=== PATIENT | female | born 1990 | race Caucasian/White ===

== ENCOUNTER → 2017-08-27 | Outpatient (CLI) | payer OTHER ==
[2017-08-27 13:39] LABS: ABSOLUTE EOSINOPHILS # (AUTO) 0.1 10^3/uL (0.0-0.6); ABSOLUTE MONOCYTES (AUTO) 0.6 10^3/uL (0.1-1.4); ABSOLUTE NEUT (AUTO) 4.3 10^3/uL (1.7-8.2); BASOPHILS % (AUTO) 0.5 % (0-2); EOSINOPHILS % (AUTO) 1.6 % (0-6); HEMOGLOBIN 9.4 g/dL (12.0-15.5); LYMPHOCYTES % (AUTO) 28.3 % (13-45); MEAN CORPUSCULAR HEMOGLOBIN 20.8 pg (27.0-33.4); MEAN CORPUSCULAR HGB CONC 31.4 g/dL (32.0-36.0); MEAN CORPUSCULAR VOLUME 66 fl (80-97); MONOCYTES % (AUTO) 9.1 % (3-13); PLATELET COUNT 466 10^3/uL (150-450); RED BLOOD COUNT 4.54 10^6/uL (3.72-5.28); RED CELL DISTRIBUTION WIDTH 18.4 % (11.5-14.0); SEGMENTED NEUTROPHILS % (AUTO) 60.5 % (42-78); TOTAL CELLS COUNTED % (AUTO) 100 %
[2017-08-27 13:44] LABS: INTERNATIONAL RATION (INR) 1.01; PROTHROMBIN TIME 13.8 SEC (11.4-15.4)
[2017-08-27 14:03] LABS: ALANINE AMINOTRANSFERASE 76 U/L (9-52); ALBUMIN 4.4 g/dL (3.5-5.0); ALKALINE PHOSPHATASE 202 U/L (38-126); ANION GAP 10 (5-19); ASPARTATE AMINO TRANSFERASE 63 U/L (14-36); BILIRUBIN,DIRECT 0.4 mg/dL (0.0-0.4); BILIRUBIN,TOTAL 0.4 mg/dL (0.2-1.3); BLOOD UREA NITROGEN 34 mg/dL (7-20); CALCIUM 9.3 mg/dL (8.4-10.2); CARBON DIOXIDE 29 mmol/L (22-30); CHLORIDE 103 mmol/L (98-107); GAMMA-GLUTAMYL TRANSFERASE 184 U/L (8-78); GLUCOSE 92 mg/dL (75-110); POTASSIUM 4.8 mmol/L (3.6-5.0); SODIUM 142.3 mmol/L (137-145); TOTAL PROTEIN 8.2 g/dL (6.3-8.2)
== END ==
LOC: OD 12:40
PROVIDERS: ATTEND Surgery
DX: D68.9 Coagulation defect, unspecified (principal); Z94.4 Liver transplant status
CPT/HCPCS: 36415; 80053; 80197; 82977; 83735; 85025; 85610

== ENCOUNTER → 2017-09-11 | Outpatient (CLI) | payer OTHER ==
[2017-09-11 12:50] LABS: ABSOLUTE EOSINOPHILS # (AUTO) 0.1 10^3/uL (0.0-0.6); ABSOLUTE MONOCYTES (AUTO) 0.5 10^3/uL (0.1-1.4); ABSOLUTE NEUT (AUTO) 2.9 10^3/uL (1.7-8.2); BASOPHILS % (AUTO) 0.3 % (0-2); EOSINOPHILS % (AUTO) 1.5 % (0-6); HEMATOCRIT 30.4 % (36.0-47.0); HEMOGLOBIN 9.8 g/dL (12.0-15.5); LYMPHOCYTES % (AUTO) 36.8 % (13-45); MEAN CORPUSCULAR HEMOGLOBIN 21.6 pg (27.0-33.4); MEAN CORPUSCULAR HGB CONC 32.2 g/dL (32.0-36.0); MEAN CORPUSCULAR VOLUME 67 fl (80-97); MONOCYTES % (AUTO) 9.2 % (3-13); PLATELET COUNT 328 10^3/uL (150-450); RED BLOOD COUNT 4.54 10^6/uL (3.72-5.28); RED CELL DISTRIBUTION WIDTH 21.5 % (11.5-14.0); SEGMENTED NEUTROPHILS % (AUTO) 52.2 % (42-78); TOTAL CELLS COUNTED % (AUTO) 100 %; WHITE BLOOD COUNT 5.6 10^3/uL (4.0-10.5)
[2017-09-11 12:54] LABS: INTERNATIONAL RATION (INR) 0.94
[2017-09-11 13:10] LABS: ALANINE AMINOTRANSFERASE 38 U/L (9-52); ALBUMIN 5.1 g/dL (3.5-5.0); ALKALINE PHOSPHATASE 170 U/L (38-126); ANION GAP 19 (5-19); ASPARTATE AMINO TRANSFERASE 22 U/L (14-36); BILIRUBIN,DIRECT 0.3 mg/dL (0.0-0.4); BILIRUBIN,TOTAL 0.6 mg/dL (0.2-1.3); BLOOD UREA NITROGEN 57 mg/dL (7-20); CALCIUM 9.8 mg/dL (8.4-10.2); CARBON DIOXIDE 26 mmol/L (22-30); CHLORIDE 96 mmol/L (98-107); GAMMA-GLUTAMYL TRANSFERASE 178 U/L (8-78); GLUCOSE 92 mg/dL (75-110); SODIUM 140.7 mmol/L (137-145); TOTAL PROTEIN 9.1 g/dL (6.3-8.2)
== END ==
LOC: OD 12:13
PROVIDERS: ATTEND Surgery
DX: Z94.4 Liver transplant status (principal)
CPT/HCPCS: 36415; 80053; 80197; 82977; 83735; 85025; 85610

== ENCOUNTER 2017-09-13 10:44 | Inpatient (IN) | payer OTHER ==
[2017-09-13] MEDS ORDERED: ONDANSETRON HCL INJ/PF 4 MG/2 ML SDV IV ONE (11:04)
[2017-09-13] MEDS ORDERED: NORMAL SALINE 1000 ML 1,000 ML IV ONE (11:05)
[2017-09-13] MEDS ORDERED: NORMAL SALINE 1000 ML 1,000 ML IV PRN ×2 (11:05→17:31)
--- NOTE | 2017-09-13 11:08 | ER Document Report ---
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 On immunosuppressive medications now. She also had partial colectomy as he was child do not know the reason. Presents today with nausea and dehydration. Her creatinine was checked a week ago it was 1.49 then again last Saturday that is 2 days ago it went up to 4.0, therefore she was referred here by the primary care physician to be hydrated. Denies any other constitutional symptoms. Denies any abdominal pain. Denies any dysuria frequency urgency. Denies any earache sore throat. Denies any cough TRAVEL OUTSIDE OF THE [place] IN LAST 30 DAYS: No - Related Data Allergies/Adverse Reactions: alcohol Allergy (Verified 09/13/17 10:50) morphine Allergy (Verified 09/13/17 10:47) Physical Exam - Vital signs Vitals: Temp Pulse Resp BP Pulse Ox 98.5 F 111 H 18 108/74 99 09/13/17 10:50 09/13/17 10:50 09/13/17 10:50 09/13/17 10:50 09/13/17 10:50 Course - Vital Signs Vital signs: Temp Pulse Resp BP Pulse Ox 98.5 F 111 H 18 108/74 99 09/13/17 10:50 09/13/17 10:50 09/13/17 10:50 09/13/17 10:50 09/13/17 10:50 Doctor's Discharge - Discharge Referrals: KAREN ADAN MD [Primary Care Provider] - Follow up as needed
[2017-09-13 11:28] LABS: APPEARANCE,URINE CLOUDY; BILIRUBIN,URINE NEGATIVE (NEGATIVE); GLUCOSE, URINE NEGATIVE (NEGATIVE); KETONES,URINE NEGATIVE (NEGATIVE); LEUKOCYTE ESTERASE,URINE LARGE (NEGATIVE); NITRITE,URINE NEGATIVE (NEGATIVE); PROTEIN,URINE 30 mg/dL (NEGATIVE); URINE SPECIFIC GRAVITY 1.015; UROBILINOGEN,URINE NEGATIVE mg/dL (<2.0)
[2017-09-13 11:29] LABS: COLOR,URINE YELLOW
--- NOTE | 2017-09-13 11:56 | ER Document Report ---
ED General - General Chief Complaint: Abnormal Lab Results Stated Complaint: VOMITING Time Seen by Provider: 09/13/17 11:04 Mode of Arrival: Ambulatory TRAVEL OUTSIDE OF THE [place] IN LAST 30 DAYS: No - HPI Notes: Patient is a 26-year-old female with a history of a liver transplant 2016 under the care of Dr. Holland ([facility]) who presents to the ED at the request of her provider for fluid rehydration. Patient states that she had routine blood work done 2 days ago and was found to have a creatinine of 4. Patient states that she has had an elevated creatinine in the past and needed fluid rehydration at that time, but does not know if it has been this high before. Patient states that she did have some nausea and 'mild' vomiting x3 yesterday ( no bile or food). Patient states that her lower back does ache. Patient states that she is otherwise urinating normally and having normal bowel movements. Patient states that she does not have any other pains or discomfort. She is eating and drinking without any difficulties. No other concerns or complaints. Patient does take tacrolimus. Denies any headache, fever, neck pain, URI, sore throat, chest pain, palpitations, syncope, cough, shortness of breath, wheeze, dyspnea, abdominal pain, diarrhea, urinary retention, dysuria, hematuria, loss of control of bowel or bladder, numbness/ tingling, saddle anesthesia, muscle paralysis/weakness, or rash. - Related Data Allergies/Adverse Reactions: alcohol Allergy (Verified 09/13/17 10:50) morphine Allergy (Verified 09/13/17 10:47) Past Medical History - General Information source: Patient - Social History Smoking Status: Never Smoker Chew tobacco use (# tins/day): No Frequency of alcohol use: None Drug Abuse: None Family History: Reviewed & Not Pertinent Patient has suicidal ideation: No Patient has homicidal ideation: No Renal/ Medical History: Denies: Hx Peritoneal Dialysis GI Medical History: Reports: Hx Gastroesophageal Reflux Disease Past Surgical History: Reports: Hx Cholecystectomy, Hx Rectal Surgery - partial colectomy Review of Systems - Review of Systems -: Yes All other systems reviewed and negative Physical Exam - Vital signs Vitals: Temp Pulse Resp BP Pulse Ox 98.5 F 111 H 18 108/74 99 09/13/17 10:50 09/13/17 10:50 09/13/17 10:50 09/13/17 10:50 09/13/17 10:50 Notes: HR 80 during exam. not tachycardic. - Notes Notes: PHYSICAL EXAMINATION: GENERAL: Well-appearing, well-nourished and in no acute distress. Pt does not appear toxic and answers questions appropriately. HEAD: Atraumatic, normocephalic. EYES: Pupils equal round and reactive to light, extraocular movements intact, sclera anicteric, conjunctiva are normal. ENT: Nares patent and without discharge. oropharynx clear without exudates. No tonsilar hypertrophy or erythema. Moist mucous membranes. NECK: Normal range of motion, supple without lymphadenopathy LUNGS: Breath sounds clear to auscultation bilaterally and equal. No wheezes rales or rhonchi. HEART: Regular rate and rhythm without murmurs, rubs, gallops. ABDOMEN: Soft, nontender, nondistended abdomen. No guarding, no rebound. No masses appreciated. Normal bowel sounds present. No CVA tenderness bilaterally. Musculoskeletal: FROM to passive/active. Strength 5+/5. Extremities: No cyanosis, clubbing, or edema b/l. Peripheral pulses 2+. Capillary refill less than 3 seconds. NEUROLOGICAL: Cranial nerves grossly intact. Normal speech, normal gait. PSYCH: Normal mood, normal affect. SKIN: Warm, Dry, normal turgor, no rashes or lesions noted. Course - Re-evaluation Re-evalutation: 09/13/17 11:57 Per patient: I am to call PLANT ENGINEERING SUPERVISOR Guillermina Holland [phone] once we have more results back. 09/13/17 13:08 I did call and speak with her PLANT ENGINEERING SUPERVISOR. Cr improved to 2.85 from 4.17 2 days ago. GFR is 20. Urine does appear infected. Her specialist would like her admitted for rehydration purposes. Patient is nontoxic-appearing and is tolerating p.o. without difficulties. Vitals are currently acceptable. PE is otherwise unremarkable. Patient given fluids and Keflex. Urine culture is pending. I did review with Dr. Foss who will accept patient. CBC shows chronic anemia, iron deficient by labs. iron studies ordered. - Vital Signs Vital signs: Temp Pulse Resp BP Pulse Ox 98.5 F 111 H 18 108/74 99 09/13/17 10:50 09/13/17 10:50 09/13/17 10:50 09/13/17 10:50 09/13/17 10:50 - Laboratory Result Diagrams: 09/13/17 11:34 09/13/17 11:34 Laboratory results interpreted by me: 09/13/17 09/13/17 09/13/17 10:48 11:34 11:34 Hgb 8.8 L Hct 26.9 L MCV 67 L MCH 21.8 L RDW 23.1 H Monocytes % 16.6 H Chloride 95 L BUN 65 H Creatinine 2.85 H Est GFR ( Amer) 25 L Est GFR (Non-Af Amer) 20 L Alkaline Phosphatase 142 H Total Protein 8.6 H Urine Protein 30 H Ur Leukocyte Esterase LARGE H Urine Ascorbic Acid 40 H Discharge - Discharge Clinical Impression: Elevated serum creatinine, Acute UTI, Acute kidney injury superimposed on CKD Condition: Stable Disposition: ADMITTED INPATIENT Admitting Provider: Hospitalist - Dr. Foss Unit Admitted: Medical Floor Referrals: KAREN ADAN MD [NO LOCAL MD] - Follow up as needed
[2017-09-13 12:04] LABS: ABSOLUTE LYMPHOCYTES (AUTO) 0.9 10^3/uL (0.5-4.7); ABSOLUTE MONOCYTES (AUTO) 0.7 10^3/uL (0.1-1.4); ABSOLUTE NEUT (AUTO) 2.8 10^3/uL (1.7-8.2); BASOPHILS % (AUTO) 0.2 % (0-2); EOSINOPHILS % (AUTO) 0.6 % (0-6); HEMATOCRIT 26.9 % (36.0-47.0); HEMOGLOBIN 8.8 g/dL (12.0-15.5); LYMPHOCYTES % (AUTO) 19.9 % (13-45); MEAN CORPUSCULAR HEMOGLOBIN 21.8 pg (27.0-33.4); MEAN CORPUSCULAR HGB CONC 32.6 g/dL (32.0-36.0); MEAN CORPUSCULAR VOLUME 67 fl (80-97); MONOCYTES % (AUTO) 16.6 % (3-13); PLATELET COUNT 242 10^3/uL (150-450); RED BLOOD COUNT 4.02 10^6/uL (3.72-5.28); RED CELL DISTRIBUTION WIDTH 23.1 % (11.5-14.0); SEGMENTED NEUTROPHILS % (AUTO) 62.7 % (42-78); TOTAL CELLS COUNTED % (AUTO) 100 %; WHITE BLOOD COUNT 4.5 10^3/uL (4.0-10.5)
[2017-09-13] MEDS ORDERED: TACROLIMUS ANHYDROUS 1 MG CAPSULE PO ONE ×3 (12:05→23:00)
[2017-09-13 12:33] LABS: ALANINE AMINOTRANSFERASE 24 U/L (9-52); ALBUMIN 4.6 g/dL (3.5-5.0); ALKALINE PHOSPHATASE 142 U/L (38-126); ANION GAP 16 (5-19); ASPARTATE AMINO TRANSFERASE 27 U/L (14-36); BILIRUBIN,DIRECT 0.3 mg/dL (0.0-0.4); BILIRUBIN,TOTAL 0.6 mg/dL (0.2-1.3); BLOOD UREA NITROGEN 65 mg/dL (7-20); CALCIUM 9.3 mg/dL (8.4-10.2); CARBON DIOXIDE 26 mmol/L (22-30); CHLORIDE 95 mmol/L (98-107); GLUCOSE 110 mg/dL (75-110); LIPASE 40.2 U/L (23-300); TOTAL PROTEIN 8.6 g/dL (6.3-8.2)
[2017-09-13] MEDS ORDERED: CEPHALEXIN 500 MG CAPSULE PO ONE (13:09)
[2017-09-13 13:42] LABS: ABSOLUTE RETICS # 0.051 10^6/uL (0.028-0.122); RETICULOCYTE COUNT (AUTO) 1.26 % (0.66-2.85)
[2017-09-13] MEDS ORDERED: ONDANSETRON 4 MG TAB.RAPDIS PO PRN (13:51)
--- NOTE | 2017-09-13 13:51 | PDOC H&P ---
History of Present Illness History of Present Illness: OLIVIER ORTIZ is a 26 year old female patient with past medical history of ulcerative colitis and colon cancer status post colectomy and primary sclerosing cholangitis status post liver transplant in 2016. Patient visited her primary care physician for regular checkup and she is found to have acute kidney injury and she is advised to come to ER. Her initial creatinine was 4 to days ago and today it is 2.85 with GFR less than 20. Her urinalysis shows large leukocyte esterase and WBC of 48. Patient denied any urinary frequency, urgency or dysuria. Patient endorses 3 episodes of vomiting of nonbilious material yesterday. No abdominal pain or diarrhea. No fever, chills , cough, chest pain, palpitation or diaphoresis. No dizziness, blurry vision, syncope or seizure activity. Past Medical History GI Medical History: Reports: Gastroesophageal Reflux Disease Past Surgical History Past Surgical History: Reports: Cholecystectomy, Other - Liver transplant Social History Smoking Status: Never Smoker Frequency of Alcohol Use: None Hx Recreational Drug Use: No Drugs: None Hx Prescription Drug Abuse: No - Advance Directive Resuscitation Status: Full Code Family History Family History: Reviewed & Not Pertinent, Other - Interstitial cystitis Parental Family History Reviewed: Yes Children Family History Reviewed: Yes Sibling(s) Family History Reviewed.: Yes Medication/Allergy Allergies/Adverse Reactions: alcohol Allergy (Verified 09/13/17 10:50) morphine Allergy (Verified 09/13/17 10:47) Review of Systems Constitutional: ABSENT: chills, fever(s), headache(s), weight gain, weight loss Eyes: ABSENT: visual disturbances Ears: ABSENT: hearing changes Cardiovascular: ABSENT: chest pain, dyspnea on exertion, edema, orthropnea, palpitations Respiratory: ABSENT: cough, hemoptysis Gastrointestinal: PRESENT: nausea, vomiting. ABSENT: abdominal pain, constipation, diarrhea, hematemesis, hematochezia Genitourinary: ABSENT: dysuria, hematuria Musculoskeletal: ABSENT: joint swelling Integumentary: ABSENT: rash, wounds Neurological: ABSENT: abnormal gait, abnormal speech, confusion, dizziness, focal weakness, syncope Psychiatric: ABSENT: anxiety, depression, homidical ideation, suicidal ideation Endocrine: ABSENT: cold intolerance, heat intolerance, polydipsia, polyuria Hematologic/Lymphatic: ABSENT: easy bleeding, easy bruising Physical Exam Vital Signs: Temp Pulse Resp BP Pulse Ox 98.5 F 111 H 18 108/74 99 09/13/17 10:50 09/13/17 10:50 09/13/17 10:50 09/13/17 10:50 09/13/17 10:50 Intake & Output 09/12/17 09/13/17 09/14/17 06:59 06:59 06:59 Weight 41.1 kg General appearance: PRESENT: no acute distress, well-developed, well-nourished Head exam: PRESENT: atraumatic, normocephalic Eye exam: PRESENT: conjunctiva pink, EOMI, PERRLA. ABSENT: scleral icterus Ear exam: PRESENT: normal external ear exam Mouth exam: PRESENT: moist, tongue midline Neck exam: ABSENT: carotid bruit, JVD, lymphadenopathy, thyromegaly Respiratory exam: PRESENT: clear to auscultation alex. ABSENT: rales, rhonchi, wheezes Cardiovascular exam: PRESENT: RRR. ABSENT: diastolic murmur, rubs, systolic murmur Pulses: PRESENT: normal dorsalis pedis pul Vascular exam: PRESENT: normal capillary refill GI/Abdominal exam: PRESENT: normal bowel sounds, soft. ABSENT: distended, guarding, mass, organolmegaly, rebound, tenderness Rectal exam: PRESENT: deferred Extremities exam: PRESENT: full ROM. ABSENT: calf tenderness, clubbing, pedal edema Neurological exam: PRESENT: alert, awake, oriented to person, oriented to place , oriented to time, oriented to situation, CN II-XII grossly intact. ABSENT: motor sensory deficit Psychiatric exam: PRESENT: appropriate affect, normal mood. ABSENT: homicidal ideation, suicidal ideation Skin exam: PRESENT: dry, intact, warm. ABSENT: cyanosis, rash Results Laboratory Results: 09/13/17 11:34 09/13/17 11:34 09/13/17 09/13/17 09/13/17 10:48 11:34 11:34 WBC 4.5 RBC 4.02 Hgb 8.8 L Hct 26.9 L MCV 67 L MCH 21.8 L MCHC 32.6 RDW 23.1 H Plt Count 242 Seg Neutrophils % 62.7 Lymphocytes % 19.9 Monocytes % 16.6 H Eosinophils % 0.6 Basophils % 0.2 Absolute Neutrophils 2.8 Absolute Lymphocytes 0.9 Absolute Monocytes 0.7 Absolute Eosinophils 0.0 Absolute Basophils 0.0 Sodium 137.0 Potassium 4.0 Chloride 95 L Carbon Dioxide 26 Anion Gap 16 BUN 65 H Creatinine 2.85 H Est GFR ( Amer) 25 L Est GFR (Non-Af Amer) 20 L Glucose 110 Lactic Acid Calcium 9.3 Total Bilirubin 0.6 AST 27 ALT 24 Alkaline Phosphatase 142 H Total Protein 8.6 H Albumin 4.6 Lipase 40.2 Urine Color YELLOW Urine Appearance CLOUDY Urine pH 5.0 Ur Specific [place] 1.015 Urine Protein 30 H Urine Glucose (UA) NEGATIVE Urine Ketones NEGATIVE Urine Blood NEGATIVE Urine Nitrite NEGATIVE Ur Leukocyte Esterase LARGE H Urine WBC (Auto) 48 Urine RBC (Auto) 4 09/13/17 11:37 WBC RBC Hgb Hct MCV MCH MCHC RDW Plt Count Seg Neutrophils % Lymphocytes % Monocytes % Eosinophils % Basophils % Absolute Neutrophils Absolute Lymphocytes Absolute Monocytes Absolute Eosinophils Absolute Basophils Sodium Potassium Chloride Carbon Dioxide Anion Gap BUN Creatinine Est GFR ( Amer) Est GFR (Non-Af Amer) Glucose Lactic Acid 1.2 Calcium Total Bilirubin AST ALT Alkaline Phosphatase Total Protein Albumin Lipase Urine Color Urine Appearance Urine pH Ur Specific [place] Urine Protein Urine Glucose (UA) Urine Ketones Urine Blood Urine Nitrite Ur Leukocyte Esterase Urine WBC (Auto) Urine RBC (Auto) Assessment & Plan - Diagnosis (1) Acute kidney injury superimposed on chronic kidney disease Is this a current diagnosis for this admission?: Yes Plan: Gentle hydration. Avoid nephrotoxic agents. BMP in a.m. (2) UTI (urinary tract infection) Qualifiers: Indwelling urinary catheter type: unspecified Is this a current diagnosis for this admission?: Yes Plan: I will start her on ceftriaxone. (3) Dehydration Is this a current diagnosis for this admission?: Yes Plan: Management as a #1 (4) History of liver transplant Is this a current diagnosis for this admission?: Yes Plan: Continue her immunosuppressant medications
[2017-09-13 16:29] LABS: FOLATE > 20.00 ng/mL (>2.76); IRON(TIBC) < 10.1 ug/dL (37-170)
[2017-09-14] MEDS: NORMAL SALINE 1000 ML 1,000 ML IV PRN ×3 (02:25→16:15)
[2017-09-14 06:52] LABS: ABSOLUTE EOSINOPHILS # (AUTO) 0.1 10^3/uL (0.0-0.6); ABSOLUTE LYMPHOCYTES (AUTO) 1.3 10^3/uL (0.5-4.7); ABSOLUTE MONOCYTES (AUTO) 0.4 10^3/uL (0.1-1.4); ABSOLUTE NEUT (AUTO) 1.3 10^3/uL (1.7-8.2); BASOPHILS % (AUTO) 0.4 % (0-2); EOSINOPHILS % (AUTO) 3.1 % (0-6); HEMATOCRIT 22.5 % (36.0-47.0); MEAN CORPUSCULAR HGB CONC 32.3 g/dL (32.0-36.0); MEAN CORPUSCULAR VOLUME 68 fl (80-97); MONOCYTES % (AUTO) 14.1 % (3-13); PLATELET COUNT 142 10^3/uL (150-450); RED CELL DISTRIBUTION WIDTH 23.1 % (11.5-14.0); SEGMENTED NEUTROPHILS % (AUTO) 41.4 % (42-78); TOTAL CELLS COUNTED % (AUTO) 100 %; WHITE BLOOD COUNT 3.2 10^3/uL (4.0-10.5)
[2017-09-14 06:54] LABS: HEMOGLOBIN 7.3 g/dL (12.0-15.5)
[2017-09-14 07:30] LABS: ANION GAP 12 (5-19); CALCIUM 8.2 mg/dL (8.4-10.2); CARBON DIOXIDE 24 mmol/L (22-30); CHLORIDE 107 mmol/L (98-107); GLUCOSE 100 mg/dL (75-110); POTASSIUM 3.6 mmol/L (3.6-5.0); SODIUM 142.5 mmol/L (137-145)
[2017-09-14 08:03] LABS: BLOOD UREA NITROGEN 44 mg/dL (7-20)
[2017-09-14] MEDS: LANSOPRAZOLE 30 MG TAB.RAP.DR PO SCH (08:20)
[2017-09-14] MEDS: CEFTRIAXONE SODIUM 1,000 MG in DEXTROSE 5%-WATER 50 ML IV SCH (09:32)
[2017-09-14] MEDS: ENOXAPARIN SODIUM INJ 40 MG/0.4 ML DISP.SYRIN SUBCUT SCH (09:33)
[2017-09-14] MEDS ORDERED: TACROLIMUS ANHYDROUS 1 MG CAPSULE PO SCH ×3 (10:00→22:00)
[2017-09-14] MEDS ORDERED: CEFTRIAXONE 1 GM/D5W RTU 1 GM/50 ML RTUPB IV SCH (10:00)
--- NOTE | 2017-09-14 10:37 | PDOC PROGRESS REPORT ---
Subjective Progress Note for:: 09/14/17 Subjective:: Ms. Reilly is a very pleasant but unfortunate 26 years old female patient referred from her primary care physician office during her regular blood checkup found to have acute on chronic kidney injury and admitted for hydration and patient also found to have UTI evidenced by pyuria and large leukocyte esterase. Patient has been on ceftriaxone and also normal saline at a rate of 150 mL/h. This morning her blood work shows drop in her hemoglobin from 8.8-7.3 and her creatinine is also trending down from 2.85-1.96. I offered the patient 1 unit of PRBC transfusion but she said she wanted to talk to her classroom coordinator for a providers. Patient is liver transplant recipient and she is on immunosuppressant. Reason For Visit: ACUTE ON CHRONIC KIDNEY INJURY,UTI Physical Exam Vital Signs: Temp Pulse Resp BP Pulse Ox 98.8 F 75 16 83/47 L 100 09/14/17 00:00 09/14/17 00:00 09/14/17 00:00 09/14/17 00:00 09/14/17 00:00 Intake & Output 09/13/17 09/14/17 09/15/17 06:59 06:59 06:59 Intake Total 1500 1000 Output Total 600 Balance 900 1000 Weight 41.7 kg General appearance: PRESENT: no acute distress, well-developed Head exam: PRESENT: atraumatic, normocephalic Eye exam: PRESENT: conjunctiva pink, EOMI, PERRLA. ABSENT: scleral icterus Mouth exam: PRESENT: moist Neck exam: ABSENT: carotid bruit, JVD, lymphadenopathy, thyromegaly Respiratory exam: PRESENT: clear to auscultation alex. ABSENT: rales, rhonchi, wheezes Cardiovascular exam: PRESENT: RRR. ABSENT: diastolic murmur, rubs, systolic murmur GI/Abdominal exam: PRESENT: normal bowel sounds, soft. ABSENT: distended, guarding, mass, organolmegaly, rebound, tenderness Rectal exam: PRESENT: deferred Extremities exam: PRESENT: full ROM. ABSENT: calf tenderness, clubbing, pedal edema Neurological exam: PRESENT: alert, awake, oriented to person, oriented to place , oriented to time, oriented to situation Psychiatric exam: PRESENT: appropriate affect, normal mood. ABSENT: homicidal ideation, suicidal ideation Skin exam: PRESENT: dry, intact, warm. ABSENT: cyanosis, rash Results Laboratory Results: 09/14/17 06:33 09/14/17 06:33 09/13/17 09/14/17 09/14/17 14:03 06:33 06:33 WBC 3.2 L RBC 3.30 L Hgb 7.3 L Hct 22.5 L MCV 68 L MCH 22.0 L MCHC 32.3 RDW 23.1 H Plt Count 142 L Seg Neutrophils % 41.4 L Lymphocytes % 41.0 Monocytes % 14.1 H Eosinophils % 3.1 Basophils % 0.4 Absolute Neutrophils 1.3 L Absolute Lymphocytes 1.3 Absolute Monocytes 0.4 Absolute Eosinophils 0.1 Absolute Basophils 0.0 Sodium 142.5 Potassium 3.6 Chloride 107 Carbon Dioxide 24 Anion Gap 12 BUN 44 H D Creatinine 1.96 H Est GFR ( Amer) 38 L Est GFR (Non-Af Amer) 31 L Glucose 100 Calcium 8.2 L Iron < 10.1 L TIBC 382 % Saturation UNABLE TO CALCULATE Ferritin 12.60 Vitamin B12 > 1000.0 H Folate > 20.00 Assessment & Plan - Diagnosis (1) Acute kidney injury superimposed on chronic kidney disease Is this a current diagnosis for this admission?: Yes Plan: Continue hydration (2) UTI (urinary tract infection) Qualifiers: Indwelling urinary catheter type: unspecified Is this a current diagnosis for this admission?: Yes Plan: Continue ceftriaxone (3) Dehydration Is this a current diagnosis for this admission?: Yes Plan: Continue hydration (4) History of liver transplant Is this a current diagnosis for this admission?: Yes Plan: Continue her immunosuppressant medications (5) Microcytic anemia Is this a current diagnosis for this admission?: Yes Plan: Etiology unclear Patient offered poor transfusion but she wants to talk with her classroom coordinator first. Stool for occult blood. Requested
[2017-09-14] MEDS ORDERED: NORMAL SALINE 1000 ML 1,000 ML IV PRN (21:56)
[2017-09-15] MEDS ORDERED: NORMAL SALINE 1000 ML 1,000 ML IV PRN (02:14)
[2017-09-15 07:15] LABS: ABSOLUTE EOSINOPHILS # (AUTO) 0.1 10^3/uL (0.0-0.6); ABSOLUTE LYMPHOCYTES (AUTO) 1.7 10^3/uL (0.5-4.7); ABSOLUTE MONOCYTES (AUTO) 0.4 10^3/uL (0.1-1.4); ABSOLUTE NEUT (AUTO) 0.9 10^3/uL (1.7-8.2); BASOPHILS % (AUTO) 0.6 % (0-2); EOSINOPHILS % (AUTO) 3.7 % (0-6); HEMATOCRIT 21.2 % (36.0-47.0); LYMPHOCYTES % (AUTO) 53.9 % (13-45); MEAN CORPUSCULAR VOLUME 69 fl (80-97); MONOCYTES % (AUTO) 11.9 % (3-13); PLATELET COUNT 138 10^3/uL (150-450); RED BLOOD COUNT 3.08 10^6/uL (3.72-5.28); RED CELL DISTRIBUTION WIDTH 23.5 % (11.5-14.0); SEGMENTED NEUTROPHILS % (AUTO) 29.9 % (42-78); TOTAL CELLS COUNTED % (AUTO) 100 %; WHITE BLOOD COUNT 3.1 10^3/uL (4.0-10.5)
[2017-09-15 07:16] LABS: HEMOGLOBIN 6.8 g/dL (12.0-15.5)
[2017-09-15 07:25] LABS: ANION GAP 9 (5-19); CARBON DIOXIDE 22 mmol/L (22-30); CHLORIDE 114 mmol/L (98-107); GLUCOSE 86 mg/dL (75-110); POTASSIUM 4.1 mmol/L (3.6-5.0); SODIUM 144.6 mmol/L (137-145)
[2017-09-15 07:41] LABS: BLOOD UREA NITROGEN 23 mg/dL (7-20)
[2017-09-15] MEDS ORDERED: NORMAL SALINE 250 ML IV PRN ×2 (07:42)
[2017-09-15] MEDS: LANSOPRAZOLE 30 MG TAB.RAP.DR PO SCH (09:21)
[2017-09-15] MEDS: ENOXAPARIN SODIUM INJ 40 MG/0.4 ML DISP.SYRIN SUBCUT SCH (09:22)
[2017-09-15] MEDS: CEFTRIAXONE SODIUM 1,000 MG in DEXTROSE 5%-WATER 50 ML IV SCH (09:40)
[2017-09-15] MEDS ORDERED: TACROLIMUS ANHYDROUS 1 MG CAPSULE PO SCH ×2 (10:00)
--- NOTE | 2017-09-15 10:01 | PDOC DISCHARGE SUMMARY ---
General - Admit/Disc Date/PCP Admission Date/Primary Care Provider: 09/13/17 13:34 Discharge Date: 09/15/17 - Discharge Diagnosis (1) Acute kidney injury superimposed on chronic kidney disease Is this a current diagnosis for this admission?: Yes (2) UTI (urinary tract infection) Is this a current diagnosis for this admission?: Yes (3) Dehydration Is this a current diagnosis for this admission?: Yes (4) History of liver transplant Is this a current diagnosis for this admission?: Yes (5) Microcytic anemia Is this a current diagnosis for this admission?: Yes - Additional Information Resuscitation Status: Full Code Home Medications: Azathioprine [Imuran 50 mg Tablet] 100 mg PO QHS 09/13/17 Demetrius Womens Multivitamin Gummy 1 tab PO BID 09/13/17 Tacrolimus [Prograf] 1 mg PO QAM 09/13/17 Tacrolimus [Prograf] 5 mg PO QAM 09/13/17 Tacrolimus [Prograf] 5 mg PO QHS 09/13/17 History of Present Illness History of Present Illness: OLIVIER ORTIZ is a 26 year old female patient with past medical history of ulcerative colitis and colon cancer status post colectomy and primary sclerosing cholangitis status post liver transplant in 2016. Patient visited her primary care physician for regular checkup and she is found to have acute kidney injury and she is advised to come to ER. Her initial creatinine was 4 to days ago and today it is 2.85 with GFR less than 20. Her urinalysis shows large leukocyte esterase and WBC of 48. Patient denied any urinary frequency, urgency or dysuria. Patient endorses 3 episodes of vomiting of nonbilious material yesterday. No abdominal pain or diarrhea. No fever, chills , cough, chest pain, palpitation or diaphoresis. No dizziness, blurry vision, syncope or seizure activity. Hospital Course Hospital Course: Ms. Reilly is a very pleasant but unfortunate 26 years old female patient referred from her primary care physician office during her regular blood checkup found to have acute on chronic kidney injury and admitted for hydration and patient also found to have UTI evidenced by pyuria and large leukocyte esterase. Patient has been on ceftriaxone and also normal saline at a rate of 150 mL/h. This morning her blood work shows drop in her hemoglobin from 8.8-7.3 and her creatinine is also trending down from 2.85-1.96 and today on the day of discharge her creatinine is 1.25. I offered the patient 1 unit of PRBC transfusion but she said she wanted to talk to her craft coordinator for a providers. Today her hemoglobin further dropped to 6.8 possibly due to hemodilution but still I offered the patient packed RBC transfusion but she refused. Patient is liver transplant recipient and she is on immunosuppressant. Patient has upcoming appointment with her transplant surgeon in [place] and patient advised to keep up her appointment. Physical Exam Vital Signs: Temp Pulse Resp BP Pulse Ox 98.4 F 67 16 92/65 L 99 09/15/17 08:06 09/15/17 08:06 09/15/17 08:06 09/15/17 08:06 09/15/17 08:06 Intake & Output 09/14/17 09/15/17 09/16/17 06:59 06:59 06:59 Intake Total 1500 2050 Output Total 600 700 Balance 900 1350 Weight 41.7 kg 45.6 kg General appearance: PRESENT: no acute distress, well-developed, well-nourished Head exam: PRESENT: atraumatic, normocephalic Eye exam: PRESENT: conjunctiva pink, EOMI, PERRLA. ABSENT: scleral icterus Ear exam: PRESENT: normal external ear exam Mouth exam: PRESENT: moist, tongue midline Neck exam: ABSENT: carotid bruit, JVD, lymphadenopathy, thyromegaly Respiratory exam: PRESENT: clear to auscultation alex. ABSENT: rales, rhonchi, wheezes Cardiovascular exam: PRESENT: RRR. ABSENT: diastolic murmur, rubs, systolic murmur Pulses: PRESENT: normal dorsalis pedis pul Vascular exam: PRESENT: normal capillary refill GI/Abdominal exam: PRESENT: normal bowel sounds, soft. ABSENT: distended, guarding, mass, organolmegaly, rebound, tenderness Rectal exam: PRESENT: deferred Extremities exam: PRESENT: full ROM. ABSENT: calf tenderness, clubbing, pedal edema Neurological exam: PRESENT: alert, awake, oriented to person, oriented to place , oriented to time, oriented to situation, CN II-XII grossly intact. ABSENT: motor sensory deficit Psychiatric exam: PRESENT: appropriate affect, normal mood. ABSENT: homicidal ideation, suicidal ideation Skin exam: PRESENT: dry, intact, warm. ABSENT: cyanosis, rash Results Laboratory Results: 09/15/17 06:06 09/15/17 06:06 09/15/17 09/15/17 09/15/17 06:06 06:06 07:55 WBC 3.1 L RBC 3.08 L Hgb 6.8 L Hct 21.2 L MCV 69 L MCH 22.0 L MCHC 32.0 RDW 23.5 H Plt Count 138 L Seg Neutrophils % 29.9 L Lymphocytes % 53.9 H Monocytes % 11.9 Eosinophils % 3.7 Basophils % 0.6 Absolute Neutrophils 0.9 L Absolute Lymphocytes 1.7 Absolute Monocytes 0.4 Absolute Eosinophils 0.1 Absolute Basophils 0.0 Sodium 144.6 Potassium 4.1 Chloride 114 H Carbon Dioxide 22 Anion Gap 9 BUN 23 H D Creatinine 1.25 Est GFR ( Amer) > 60 Est GFR (Non-Af Amer) 53 L Glucose 86 Calcium 8.0 L Blood Type A POSITIVE Antibody Screen NEGATIVE Qualifiers - * PATIENT BEING DISCHARGED WITH ANY OF THE FOLLOWING DIAGNOSIS: No
[2017-09-15 10:53] VITALS: BP 85/50
== END 2017-09-15 11:05 | disposition home or self-care (01) | DRG 683 ==
LOC: ER 10:44 → EH 13:34 → 2S 15:10
PROVIDERS: ADMIT Internal Medicine; ATTEND Internal Medicine
DX: N17.9 Acute kidney failure, unspecified (principal); Z94.4 Liver transplant status; N39.0 Urinary tract infection, site not specified; N18.9 Chronic kidney disease, unspecified; E86.0 Dehydration; D50.0 Iron deficiency anemia secondary to blood loss (chronic); K21.9 Gastro-esophageal reflux disease without esophagitis; Z90.49 Acquired absence of other specified parts of digestive tract
CPT/HCPCS: 36415; 80048; 80076; 81001; 81025; 82607; 82728; 82746; 83540; 83550; 83605; 83690; 85025; 85045; 86850; 86900; 86901; 86920; 87086; 96374; 99284; J0696; J2405; J7030; J7507

== ENCOUNTER → 2017-09-18 | Outpatient (CLI) | payer OTHER ==
[2017-09-18 11:54] LABS: ABSOLUTE EOSINOPHILS # (AUTO) 0.2 10^3/uL (0.0-0.6); ABSOLUTE LYMPHOCYTES (AUTO) 2.1 10^3/uL (0.5-4.7); ABSOLUTE MONOCYTES (AUTO) 0.4 10^3/uL (0.1-1.4); ABSOLUTE NEUT (AUTO) 2.7 10^3/uL (1.7-8.2); BASOPHILS % (AUTO) 0.6 % (0-2); EOSINOPHILS % (AUTO) 3.4 % (0-6); HEMOGLOBIN 8.1 g/dL (12.0-15.5); LYMPHOCYTES % (AUTO) 39.4 % (13-45); MEAN CORPUSCULAR HEMOGLOBIN 22.2 pg (27.0-33.4); MEAN CORPUSCULAR HGB CONC 32.3 g/dL (32.0-36.0); MEAN CORPUSCULAR VOLUME 69 fl (80-97); MONOCYTES % (AUTO) 6.7 % (3-13); PLATELET COUNT 235 10^3/uL (150-450); RED BLOOD COUNT 3.62 10^6/uL (3.72-5.28); RED CELL DISTRIBUTION WIDTH 23.7 % (11.5-14.0); SEGMENTED NEUTROPHILS % (AUTO) 49.9 % (42-78); TOTAL CELLS COUNTED % (AUTO) 100 %; WHITE BLOOD COUNT 5.4 10^3/uL (4.0-10.5)
[2017-09-18 11:57] LABS: INTERNATIONAL RATION (INR) 1.01; PROTHROMBIN TIME 13.9 SEC (11.4-15.4)
[2017-09-18 12:05] LABS: ALANINE AMINOTRANSFERASE 22 U/L (9-52); ALBUMIN 3.7 g/dL (3.5-5.0); ALKALINE PHOSPHATASE 75 U/L (38-126); ANION GAP 13 (5-19); ASPARTATE AMINO TRANSFERASE 19 U/L (14-36); BLOOD UREA NITROGEN 19 mg/dL (7-20); CALCIUM 8.9 mg/dL (8.4-10.2); CARBON DIOXIDE 22 mmol/L (22-30); CHLORIDE 108 mmol/L (98-107); GAMMA-GLUTAMYL TRANSFERASE 84 U/L (8-78); GLUCOSE 85 mg/dL (75-110); POTASSIUM 4.4 mmol/L (3.6-5.0); SODIUM 142.9 mmol/L (137-145); TOTAL PROTEIN 6.9 g/dL (6.3-8.2)
[2017-09-18 12:08] LABS: BILIRUBIN,TOTAL < 0.1 mg/dL (0.2-1.3)
== END ==
LOC: OD 10:35
PROVIDERS: ATTEND Surgery
DX: D68.9 Coagulation defect, unspecified (principal); Z94.4 Liver transplant status
CPT/HCPCS: 36415; 80053; 80197; 82977; 83735; 85025; 85610

== ENCOUNTER → 2017-12-25 | Outpatient (CLI) | payer OTHER ==
[2017-12-25 11:51] LABS: ABSOLUTE EOSINOPHILS # (AUTO) 0.2 10^3/uL (0.0-0.6); ABSOLUTE LYMPHOCYTES (AUTO) 1.3 10^3/uL (0.5-4.7); ABSOLUTE MONOCYTES (AUTO) 0.4 10^3/uL (0.1-1.4); ABSOLUTE NEUT (AUTO) 1.9 10^3/uL (1.7-8.2); BASOPHILS % (AUTO) 0.6 % (0-2); EOSINOPHILS % (AUTO) 5.2 % (0-6); HEMATOCRIT 31.3 % (36.0-47.0); HEMOGLOBIN 10.4 g/dL (12.0-15.5); LYMPHOCYTES % (AUTO) 33.9 % (13-45); MEAN CORPUSCULAR HEMOGLOBIN 23.4 pg (27.0-33.4); MEAN CORPUSCULAR HGB CONC 33.2 g/dL (32.0-36.0); MEAN CORPUSCULAR VOLUME 70 fl (80-97); MONOCYTES % (AUTO) 9.5 % (3-13); PLATELET COUNT 198 10^3/uL (150-450); RED BLOOD COUNT 4.44 10^6/uL (3.72-5.28); RED CELL DISTRIBUTION WIDTH 19.4 % (11.5-14.0); SEGMENTED NEUTROPHILS % (AUTO) 50.8 % (42-78); TOTAL CELLS COUNTED % (AUTO) 100 %; WHITE BLOOD COUNT 3.8 10^3/uL (4.0-10.5)
[2017-12-25 11:56] LABS: INTERNATIONAL RATION (INR) 0.96; PROTHROMBIN TIME 13.3 SEC (11.4-15.4)
[2017-12-25 12:11] LABS: ALANINE AMINOTRANSFERASE 69 U/L (9-52); ALBUMIN 4.8 g/dL (3.5-5.0); ALKALINE PHOSPHATASE 189 U/L (38-126); ANION GAP 17 (5-19); ASPARTATE AMINO TRANSFERASE 94 U/L (14-36); BILIRUBIN,DIRECT 0.2 mg/dL (0.0-0.4); BILIRUBIN,TOTAL 0.5 mg/dL (0.2-1.3); BLOOD UREA NITROGEN 44 mg/dL (7-20); CARBON DIOXIDE 35 mmol/L (22-30); CHLORIDE 90 mmol/L (98-107); GAMMA-GLUTAMYL TRANSFERASE 163 U/L (8-78); GLUCOSE 113 mg/dL (75-110); POTASSIUM 3.2 mmol/L (3.6-5.0); SODIUM 141.8 mmol/L (137-145); TOTAL PROTEIN 8.3 g/dL (6.3-8.2)
== END ==
LOC: OD 11:17
PROVIDERS: ATTEND Surgery
DX: D68.9 Coagulation defect, unspecified (principal); Z94.4 Liver transplant status
CPT/HCPCS: 36415; 80053; 80197; 82977; 83735; 85025; 85610

== ENCOUNTER → 2018-03-22 | Outpatient (CLI) | payer OTHER ==
[2018-03-22 12:18] LABS: ABSOLUTE EOSINOPHILS # (AUTO) 0.2 10^3/uL (0.0-0.6); ABSOLUTE LYMPHOCYTES (AUTO) 1.5 10^3/uL (0.5-4.7); ABSOLUTE MONOCYTES (AUTO) 0.5 10^3/uL (0.1-1.4); ABSOLUTE NEUT (AUTO) 3.1 10^3/uL (1.7-8.2); BASOPHILS % (AUTO) 0.5 % (0-2); EOSINOPHILS % (AUTO) 4.5 % (0-6); HEMATOCRIT 29.8 % (36.0-47.0); HEMOGLOBIN 10.3 g/dL (12.0-15.5); LYMPHOCYTES % (AUTO) 28.1 % (13-45); MEAN CORPUSCULAR HEMOGLOBIN 28.3 pg (27.0-33.4); MEAN CORPUSCULAR HGB CONC 34.5 g/dL (32.0-36.0); MEAN CORPUSCULAR VOLUME 82 fl (80-97); MONOCYTES % (AUTO) 9.5 % (3-13); PLATELET COUNT 203 10^3/uL (150-450); RED BLOOD COUNT 3.64 10^6/uL (3.72-5.28); SEGMENTED NEUTROPHILS % (AUTO) 57.4 % (42-78); TOTAL CELLS COUNTED % (AUTO) 100 %; WHITE BLOOD COUNT 5.5 10^3/uL (4.0-10.5)
[2018-03-22 12:24] LABS: INTERNATIONAL RATION (INR) 0.94
[2018-03-22 12:39] LABS: ALANINE AMINOTRANSFERASE 50 U/L (9-52); ALKALINE PHOSPHATASE 138 U/L (38-126); ANION GAP 12 (5-19); ASPARTATE AMINO TRANSFERASE 74 U/L (14-36); BILIRUBIN,DIRECT 0.1 mg/dL (0.0-0.4); BILIRUBIN,TOTAL 0.3 mg/dL (0.2-1.3); BLOOD UREA NITROGEN 21 mg/dL (7-20); CARBON DIOXIDE 31 mmol/L (22-30); CHLORIDE 98 mmol/L (98-107); GAMMA-GLUTAMYL TRANSFERASE 159 U/L (8-78); GLUCOSE 97 mg/dL (75-110); POTASSIUM 3.7 mmol/L (3.6-5.0); SODIUM 141.3 mmol/L (137-145); TOTAL PROTEIN 8.2 g/dL (6.3-8.2)
== END ==
LOC: OD 10:59
PROVIDERS: ATTEND Surgery
DX: D68.9 Coagulation defect, unspecified (principal); Z94.4 Liver transplant status
CPT/HCPCS: 36415; 80053; 80197; 82977; 83735; 85025; 85610

== ENCOUNTER → 2018-04-09 | Outpatient (CLI) | payer OTHER ==
[2018-04-09 11:51] LABS: ABSOLUTE EOSINOPHILS # (AUTO) 0.3 10^3/uL (0.0-0.6); ABSOLUTE LYMPHOCYTES (AUTO) 1.5 10^3/uL (0.5-4.7); ABSOLUTE MONOCYTES (AUTO) 0.4 10^3/uL (0.1-1.4); ABSOLUTE NEUT (AUTO) 2.6 10^3/uL (1.7-8.2); BASOPHILS % (AUTO) 0.8 % (0-2); EOSINOPHILS % (AUTO) 6.9 % (0-6); HEMATOCRIT 32.2 % (36.0-47.0); HEMOGLOBIN 11.3 g/dL (12.0-15.5); LYMPHOCYTES % (AUTO) 29.8 % (13-45); MEAN CORPUSCULAR HEMOGLOBIN 27.9 pg (27.0-33.4); MEAN CORPUSCULAR HGB CONC 35.1 g/dL (32.0-36.0); MEAN CORPUSCULAR VOLUME 80 fl (80-97); MONOCYTES % (AUTO) 8.7 % (3-13); PLATELET COUNT 293 10^3/uL (150-450); RED BLOOD COUNT 4.05 10^6/uL (3.72-5.28); RED CELL DISTRIBUTION WIDTH 15.5 % (11.5-14.0); SEGMENTED NEUTROPHILS % (AUTO) 53.8 % (42-78); TOTAL CELLS COUNTED % (AUTO) 100 %; WHITE BLOOD COUNT 4.9 10^3/uL (4.0-10.5)
[2018-04-09 11:52] LABS: INTERNATIONAL RATION (INR) 1.01; PROTHROMBIN TIME 13.8 SEC (11.4-15.4)
[2018-04-09 12:14] LABS: ALANINE AMINOTRANSFERASE 76 U/L (9-52); ALKALINE PHOSPHATASE 182 U/L (38-126); ANION GAP 11 (5-19); ASPARTATE AMINO TRANSFERASE 53 U/L (14-36); BILIRUBIN,DIRECT 0.1 mg/dL (0.0-0.4); BILIRUBIN,TOTAL 0.6 mg/dL (0.2-1.3); BLOOD UREA NITROGEN 11 mg/dL (7-20); CALCIUM 9.6 mg/dL (8.4-10.2); CARBON DIOXIDE 27 mmol/L (22-30); CHLORIDE 104 mmol/L (98-107); GAMMA-GLUTAMYL TRANSFERASE 190 U/L (8-78); GLUCOSE 103 mg/dL (75-110); POTASSIUM 3.8 mmol/L (3.6-5.0); SODIUM 141.8 mmol/L (137-145); TOTAL PROTEIN 8.2 g/dL (6.3-8.2)
== END ==
LOC: OD 10:53
PROVIDERS: ATTEND Surgery
DX: Z94.4 Liver transplant status (principal); D68.9 Coagulation defect, unspecified
CPT/HCPCS: 36415; 80053; 80197; 82977; 83735; 85025; 85610

== ENCOUNTER → 2018-06-19 | Outpatient (CLI) | payer OTHER ==
[2018-06-19 11:35] LABS: ABSOLUTE EOSINOPHILS # (AUTO) 0.1 10^3/uL (0.0-0.6); ABSOLUTE LYMPHOCYTES (AUTO) 0.8 10^3/uL (0.5-4.7); ABSOLUTE MONOCYTES (AUTO) 0.7 10^3/uL (0.1-1.4); BASOPHILS % (AUTO) 0.4 % (0-2); EOSINOPHILS % (AUTO) 1.8 % (0-6); HEMATOCRIT 33.1 % (36.0-47.0); LYMPHOCYTES % (AUTO) 14.9 % (13-45); MEAN CORPUSCULAR HEMOGLOBIN 26.1 pg (27.0-33.4); MEAN CORPUSCULAR HGB CONC 33.3 g/dL (32.0-36.0); MEAN CORPUSCULAR VOLUME 78 fl (80-97); MONOCYTES % (AUTO) 12.1 % (3-13); PLATELET COUNT 216 10^3/uL (150-450); RED BLOOD COUNT 4.22 10^6/uL (3.72-5.28); RED CELL DISTRIBUTION WIDTH 17.1 % (11.5-14.0); SEGMENTED NEUTROPHILS % (AUTO) 70.8 % (42-78); TOTAL CELLS COUNTED % (AUTO) 100 %; WHITE BLOOD COUNT 5.7 10^3/uL (4.0-10.5)
[2018-06-19 11:39] LABS: INTERNATIONAL RATION (INR) 0.97; PROTHROMBIN TIME 13.4 SEC (11.4-15.4)
[2018-06-19 12:11] LABS: ALANINE AMINOTRANSFERASE 86 U/L (9-52); ALBUMIN 4.9 g/dL (3.5-5.0); ALKALINE PHOSPHATASE 222 U/L (38-126); ANION GAP 16 (5-19); ASPARTATE AMINO TRANSFERASE 93 U/L (14-36); BILIRUBIN,DIRECT 0.3 mg/dL (0.0-0.4); BILIRUBIN,TOTAL 0.7 mg/dL (0.2-1.3); BLOOD UREA NITROGEN 30 mg/dL (7-20); CALCIUM 9.8 mg/dL (8.4-10.2); CARBON DIOXIDE 24 mmol/L (22-30); CHLORIDE 101 mmol/L (98-107); GAMMA-GLUTAMYL TRANSFERASE 225 U/L (8-78); GLUCOSE 109 mg/dL (75-110); POTASSIUM 4.3 mmol/L (3.6-5.0); TOTAL PROTEIN 8.8 g/dL (6.3-8.2)
== END ==
LOC: OD 10:29
PROVIDERS: ATTEND Surgery
DX: Z94.4 Liver transplant status (principal)
CPT/HCPCS: 36415; 80053; 80197; 82977; 83735; 85025; 85610

== ENCOUNTER → 2018-07-31 | Outpatient (CLI) | payer OTHER ==
[2018-07-31 11:28] LABS: ABSOLUTE EOSINOPHILS # (AUTO) 0.2 10^3/uL (0.0-0.6); ABSOLUTE LYMPHOCYTES (AUTO) 1.1 10^3/uL (0.5-4.7); ABSOLUTE MONOCYTES (AUTO) 0.3 10^3/uL (0.1-1.4); ABSOLUTE NEUT (AUTO) 1.9 10^3/uL (1.7-8.2); BASOPHILS % (AUTO) 0.8 % (0-2); EOSINOPHILS % (AUTO) 6.1 % (0-6); HEMATOCRIT 31.6 % (36.0-47.0); HEMOGLOBIN 10.6 g/dL (12.0-15.5); LYMPHOCYTES % (AUTO) 31.3 % (13-45); MEAN CORPUSCULAR HEMOGLOBIN 27.7 pg (27.0-33.4); MEAN CORPUSCULAR HGB CONC 33.5 g/dL (32.0-36.0); MEAN CORPUSCULAR VOLUME 83 fl (80-97); MONOCYTES % (AUTO) 7.8 % (3-13); PLATELET COUNT 220 10^3/uL (150-450); RED BLOOD COUNT 3.84 10^6/uL (3.72-5.28); RED CELL DISTRIBUTION WIDTH 17.7 % (11.5-14.0); TOTAL CELLS COUNTED % (AUTO) 100 %; WHITE BLOOD COUNT 3.4 10^3/uL (4.0-10.5)
[2018-07-31 11:32] LABS: INTERNATIONAL RATION (INR) 0.99; PROTHROMBIN TIME 13.6 SEC (11.4-15.4)
[2018-07-31 11:50] LABS: ALANINE AMINOTRANSFERASE 89 U/L (9-52); ALBUMIN 4.8 g/dL (3.5-5.0); ALKALINE PHOSPHATASE 143 U/L (38-126); ANION GAP 11 (5-19); ASPARTATE AMINO TRANSFERASE 66 U/L (14-36); BILIRUBIN,DIRECT 0.3 mg/dL (0.0-0.4); BILIRUBIN,TOTAL 0.4 mg/dL (0.2-1.3); BLOOD UREA NITROGEN 15 mg/dL (7-20); CALCIUM 9.8 mg/dL (8.4-10.2); CARBON DIOXIDE 26 mmol/L (22-30); CHLORIDE 104 mmol/L (98-107); GAMMA-GLUTAMYL TRANSFERASE 180 U/L (8-78); GLUCOSE 93 mg/dL (75-110); POTASSIUM 4.3 mmol/L (3.6-5.0); SODIUM 141.2 mmol/L (137-145); TOTAL PROTEIN 8.1 g/dL (6.3-8.2)
== END ==
LOC: OD 10:18
PROVIDERS: ATTEND Surgery
DX: D68.9 Coagulation defect, unspecified (principal); Z94.4 Liver transplant status; Z51.81 Encounter for therapeutic drug level monitoring; Z79.899 Other long term (current) drug therapy
CPT/HCPCS: 36415; 80053; 80197; 82977; 83735; 85025; 85610

== ENCOUNTER 2018-09-24 07:01 | Emergency (ER) | payer OTHER ==
[2018-09-24] MEDS ORDERED: NORMAL SALINE 1000 ML 1,000 ML IV ONE ×2 (07:43→10:20)
[2018-09-24] MEDS ORDERED: ONDANSETRON HCL INJ/PF 4 MG/2 ML SDV IV ONE (07:44)
--- NOTE | 2018-09-24 07:46 | ER Document Report ---
ED Medical Screen (RME) - General Chief Complaint: Nausea Stated Complaint: NAUSEA Time Seen by Provider: 09/24/18 07:39 Primary Care Provider: KAREN ADAN MD [Primary Care Provider] - Follow up as needed Notes: 27-year-old female with chief complaint of nausea and vomiting starting yesterday. She states she still is nauseated. She states she has a little bit of pain in her flank but denies any abdominal pain. She denies fevers. She has a complicated medical history including liver transplant on immunosuppressive therapy following with [facility] and also complete colectomy secondary to ulcerative colitis at 13 years old. She just completed her menstrual cycle 1 week ago. TRAVEL OUTSIDE OF THE [place] IN LAST 30 DAYS: No - Related Data Allergies/Adverse Reactions: alcohol Allergy (Verified 09/24/18 07:04) HIVES/RASH, ITCHING morphine Allergy (Verified 09/24/18 07:04) HIVES/RASH, ITCHING Past Medical History Renal/ Medical History: Denies: Hx Peritoneal Dialysis GI Medical History: Reports: Hx Gastroesophageal Reflux Disease Past Surgical History: Reports: Hx Cholecystectomy, Hx Rectal Surgery - partial colectomy, Other - Liver transplant - Immunizations History of Influenza Vaccine for 11/2016 - 04/2017 Season: No Physical Exam - Vital signs Vitals: Temp Pulse Resp BP Pulse Ox 98.1 F 112 H 20 107/71 99 09/24/18 07:05 09/24/18 07:05 09/24/18 07:05 09/24/18 07:05 09/24/18 07:05 - Cardiovascular Rhythm: Regular Heart sounds: Normal auscultation, S1 appreciated, S2 appreciated - Abdominal Tenderness: Other - Multiple abdominal scars but no tenderness, distention, rigidity noted Course - Re-evaluation Re-evalutation: I have greeted and performed a rapid initial assessment of this patient. A comprehensive ED assessment and evaluation of the patient, analysis of test results and completion of the medical decision making process will be conducted by additional ED providers. - Vital Signs Vital signs: Temp Pulse Resp BP Pulse Ox 98.1 F 112 H 20 107/71 99 09/24/18 07:05 09/24/18 07:05 09/24/18 07:05 09/24/18 07:05 09/24/18 07:05 Doctor's Discharge - Discharge Referrals: KAREN ADAN MD [Primary Care Provider] - Follow up as needed
[2018-09-24 08:13] LABS: ABSOLUTE EOSINOPHILS # (AUTO) 0.1 10^3/uL (0.0-0.6); ABSOLUTE LYMPHOCYTES (AUTO) 1.3 10^3/uL (0.5-4.7); ABSOLUTE MONOCYTES (AUTO) 0.6 10^3/uL (0.1-1.4); ABSOLUTE NEUT (AUTO) 3.7 10^3/uL (1.7-8.2); BASOPHILS % (AUTO) 0.3 % (0-2); EOSINOPHILS % (AUTO) 1.4 % (0-6); HEMATOCRIT 32.7 % (36.0-47.0); HEMOGLOBIN 11.5 g/dL (12.0-15.5); LYMPHOCYTES % (AUTO) 23.3 % (13-45); MEAN CORPUSCULAR HGB CONC 35.1 g/dL (32.0-36.0); MEAN CORPUSCULAR VOLUME 80 fl (80-97); MONOCYTES % (AUTO) 10.7 % (3-13); PLATELET COUNT 268 10^3/uL (150-450); RED BLOOD COUNT 4.09 10^6/uL (3.72-5.28); RED CELL DISTRIBUTION WIDTH 16.4 % (11.5-14.0); SEGMENTED NEUTROPHILS % (AUTO) 64.3 % (42-78); TOTAL CELLS COUNTED % (AUTO) 100 %; WHITE BLOOD COUNT 5.8 10^3/uL (4.0-10.5)
[2018-09-24 08:28] LABS: ALBUMIN 4.8 g/dL (3.5-5.0); ALKALINE PHOSPHATASE 197 U/L (38-126); ANION GAP 14 (5-19); ASPARTATE AMINO TRANSFERASE 64 U/L (14-36); BILIRUBIN,DIRECT 0.2 mg/dL (0.0-0.4); BILIRUBIN,TOTAL 0.3 mg/dL (0.2-1.3); BLOOD UREA NITROGEN 58 mg/dL (7-20); CALCIUM 9.5 mg/dL (8.4-10.2); CARBON DIOXIDE 29 mmol/L (22-30); CHLORIDE 93 mmol/L (98-107); GLUCOSE 115 mg/dL (75-110); POTASSIUM 3.6 mmol/L (3.6-5.0); TOTAL PROTEIN 8.2 g/dL (6.3-8.2)
[2018-09-24 09:31] LABS: APPEARANCE,URINE SLIGHTLY-CLOUDY; BILIRUBIN,URINE NEGATIVE (NEGATIVE); COLOR,URINE YELLOW; GLUCOSE, URINE NEGATIVE (NEGATIVE); KETONES,URINE NEGATIVE (NEGATIVE); LEUKOCYTE ESTERASE,URINE TRACE (NEGATIVE); NITRITE,URINE NEGATIVE (NEGATIVE); PROTEIN,URINE NEGATIVE (NEGATIVE); URINE SPECIFIC GRAVITY 1.014; UROBILINOGEN,URINE NEGATIVE mg/dL (<2.0)
--- NOTE | 2018-09-24 09:31 | ER Document Report ---
Addendum entered and electronically signed by WILY POWER, [employer] ATTENDANT-Yara 09/25/18 16:00: Course - Re-evaluation Re-evalutation: 09/25/18 15:52 Vital signs stable, no distress, afebrile, report given by ASHLEE Glez at bedside at 0815. [facility] who accepted the patient for acute kidney injury as well as for evaluation of organ transplant does not have a bed and will not be able to accept the patient today. Will repeat CBC and CMP due to patient being able to take p.o. foods and drink, no vomiting since yesterday. Patient has been eating and drinking without any issues, no vomiting. Patient is receiving IV hydration of normal saline at 125mL/ hour patient was agreeable with reassessing her labs.1130: Repeat Cr from 2.0 on 09/24 to 1.13 today, Hbg 11.5 on 09/24 to 8.3 today. Due to decrease in his her H&H which is likely due to dilution with her kidney function somewhat better today, patient will need evaluation at a higher level of care, due to patient being unable to be seen by parents today, will recheck to [facility] for transfer. 1228-Dr. Bryan Nation, jewelry bench worker at [facility], consulted regarding pertinent laboratory, diagnostic, historical and clinical factors except patient for history of liver transplant and being on immunosuppressive therapy. Except patient's to his service and will go through the emergency room, Dr. Melgar, will be the physician who is accepting patient to the ED at [facility]. Patient was agreeable with this plan of care and verbalized understanding of this care.[id number]-reevaluation of patient at bedside, she is sitting up, eating and drinking without issues. Dehydration. Afebrile vitals stable. Transport team at bedside, patient is stable for transport - Vital Signs Vital signs: Temp Pulse Resp BP Pulse Ox 99.1 F 78 16 95/60 L 100 09/25/18 15:48 09/25/18 04:36 09/25/18 15:40 09/25/18 15:40 09/25/18 15:40 - Laboratory Result Diagrams: 09/25/18 09:48 09/25/18 09:48 Laboratory results interpreted by me: 09/24/18 09/24/18 09/24/18 07:56 07:56 07:56 WBC RBC Hgb 11.5 L Hct 32.7 L RDW 16.4 H Sodium 135.8 L Potassium Chloride 93 L BUN 58 H Creatinine 2.02 H Est GFR ( Amer) 36 L Est GFR (Non-Af Amer) 30 L Glucose 115 H Calcium AST 64 H Alkaline Phosphatase 197 H Creatine Kinase 23 L Total Protein Albumin Urine Glucose (UA) Urine Blood Ur Leukocyte Esterase 09/24/18 09/24/18 09/25/18 09:00 17:00 09:48 WBC 3.7 L RBC 3.02 L Hgb 8.3 L D Hct 24.6 L RDW 16.0 H Sodium 136.2 L Potassium 3.4 L Chloride BUN 46 H Creatinine 1.53 H Est GFR ( Amer) 50 L Est GFR (Non-Af Amer) 41 L Glucose Calcium AST Alkaline Phosphatase Creatine Kinase Total Protein Albumin Urine Glucose (UA) Urine Blood MODERATE H Ur Leukocyte Esterase TRACE H 09/25/18 09/25/18 09:48 10:45 WBC RBC Hgb Hct RDW Sodium Potassium 3.4 L Chloride BUN 22 H D Creatinine Est GFR ( Amer) Est GFR (Non-Af Amer) 59 L Glucose Calcium 8.2 L AST Alkaline Phosphatase Creatine Kinase Total Protein 5.7 L Albumin 3.1 L Urine Glucose (UA) 50 H Urine Blood MODERATE H Ur Leukocyte Esterase TRACE H Original Note: ED General - General Chief Complaint: Nausea Stated Complaint: NAUSEA Time Seen by Provider: 09/24/18 07:39 Primary Care Provider: KAREN ADAN MD [NO LOCAL MD] - Follow up as needed TRAVEL OUTSIDE OF THE [place] IN LAST 30 DAYS: No - HPI Notes: 27-year-old female to the emergency department with complaints of nausea for the past 2 weeks. She states that she vomited 3 times yesterday. She states that she has poor appetite. She states that she is lost 10 pounds in the past month. She has a complicated medical history and that she had ulcerative colitis diagnosed at age 11 and then had a colectomy at age 13. She also has a history of liver transplant. That was done about 3 years ago at [facility]. She has recently moved down here and does not have good follow-up care. She she states she does not have a GI specialist or a primary care ph ysician. She states that she is been trying not to come to the hospital but she cannot handle the nausea and vomiting any longer. She states that she feels globally weak. She denies any fevers, chills, hematemesis, melena, hematochezia, diarrhea. 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 She denies any abdominal pain today. - Related Data Allergies/Adverse Reactions: alcohol Allergy (Verified 09/24/18 07:04) HIVES/RASH, ITCHING morphine Allergy (Verified 09/24/18 07:04) HIVES/RASH, ITCHING Past Medical History - General Information source: Patient - Social History Smoking Status: Never Smoker Frequency of alcohol use: None Drug Abuse: None Family History: Reviewed & Not Pertinent, Other - Interstitial cystitis Patient has suicidal ideation: No Patient has homicidal ideation: No Renal/ Medical History: Denies: Hx Peritoneal Dialysis GI Medical History: Reports: Hx Gastroesophageal Reflux Disease Past Surgical History: Reports: Hx Cholecystectomy, Hx Rectal Surgery - partial colectomy, Other - Liver transplant Review of Systems - Review of Systems Constitutional: Malaise. denies: Chills, Fever EENT: No symptoms reported Cardiovascular: denies: Chest pain, Palpitations, Dyspnea, Syncope, Dizziness, Lightheaded Respiratory: denies: Cough, Short of breath Gastrointestinal: Nausea, Vomiting. denies: Abdominal pain, Diarrhea Genitourinary: denies: See HPI, Frequency, Flank pain, Hematuria Female Genitourinary: No symptoms reported Musculoskeletal: No symptoms reported Skin: No symptoms reported Hematologic/Lymphatic: No symptoms reported Neurological/Psychological: No symptoms reported -: Yes All other systems reviewed and negative Physical Exam - Vital signs Vitals: Temp Pulse Resp BP Pulse Ox 98.1 F 112 H 20 107/71 99 09/24/18 07:05 09/24/18 07:05 09/24/18 07:05 09/24/18 07:05 09/24/18 07:05 Interpretation: Tachycardic - General General appearance: Alert In distress: None Notes: Patient appears chronically ill. - HEENT Head: Normocephalic, Atraumatic Eyes: Normal Pupils: PERRL - Respiratory Respiratory status: No respiratory distress Chest status: Nontender Breath sounds: Normal Chest palpation: Normal - Cardiovascular Rhythm: Regular Heart sounds: Normal auscultation Murmur: No - Abdominal Inspection: Normal Distension: No distension Bowel sounds: Normal Tenderness: Nontender Organomegaly: No organomegaly - Back Back: No: CVA tenderness - Neurological Neuro grossly intact: Yes Cognition: Normal Orientation: AAOx4 Jayla Coma Scale Eye Opening: Spontaneous Jayla Coma Scale Verbal: Oriented Jayla Coma Scale Motor: Obeys Commands [place] Coma Scale Total: 15 Speech: Normal Motor strength normal: LUE, RUE, LLE, RLE Sensory: Normal - Psychological Associated symptoms: Normal affect, Normal mood - Skin Skin Temperature: Warm Skin Moisture: Dry Skin Color: Normal Course - Re-evaluation Re-evalutation: 09/24/18 11:28 Noted acute kidney injury. Comparison from last creatinine shows a creatinine of 1.25. This is a noted difference for her. Discussed with Dr. Martínez, ER attending, and we agree given her history that she should likely be admitted for further evaluation of this persistent nausea and acute kidney injury. She does not have ketones in her urine. She has mild hyponatremia. Discussed with ASHLEE paredes hospitalist team. He voices concern that patient will need a facility that has transplant services. She has been able to hold on her tacrolimus she reports but he cannot get an accurate immunosuppressant level within a timely fashion and feel she would best be suited to be transferred for admission elsewhere. Discussed with Dr. Martínez, ER attending. She agrees with the plan to call [facility] to discuss possible admission. Rounded with patient about this and she agrees with the plan. 09/24/18 Discussed patient with nephrology team at [facility] Dr. Keller. She states that she would like for this to get a medicine service. Transfer center will call hospitalist. [facility]. richmond. Informed that patient will require admission to [facility] so that transplant can be involved in her case. Patient accepted to the hospitalist team at [facility] under Dr. Dillard. Will await transportation and bed assignment. - Vital Signs Vital signs: Temp Pulse Resp BP Pulse Ox 98.1 F 112 H 20 107/71 99 09/24/18 07:05 09/24/18 07:05 09/24/18 07:05 09/24/18 07:05 09/24/18 07:05 - Laboratory Result Diagrams: 09/24/18 07:56 09/24/18 07:56 Laboratory results interpreted by me: 09/24/18 09/24/18 09/24/18 07:56 07:56 07:56 Hgb 11.5 L Hct 32.7 L RDW 16.4 H Sodium 135.8 L Chloride 93 L BUN 58 H Creatinine 2.02 H Est GFR ( Amer) 36 L Est GFR (Non-Af Amer) 30 L Glucose 115 H AST 64 H Alkaline Phosphatase 197 H Creatine Kinase 23 L Urine Blood Ur Leukocyte Esterase 09/24/18 09:00 Hgb Hct RDW Sodium Chloride BUN Creatinine Est GFR ( Amer) Est GFR (Non-Af Amer) Glucose AST Alkaline Phosphatase Creatine Kinase Urine Blood MODERATE H Ur Leukocyte Esterase TRACE H Discharge - Discharge Clinical Impression: Acute kidney injury, Nausea, Vomiting, Liver transplant status Disposition: [facility] Referrals: KAREN ADAN MD [NO LOCAL MD] - Follow up as needed
[2018-09-24] MEDS ORDERED: HYDROCODONE/ACETAMINOPHEN 5-325 MG TABLET PO ONE (14:32)
[2018-09-24] MEDS: NORMAL SALINE 1000 ML 1,000 ML IV PRN (17:21)
[2018-09-24 17:34] LABS: ANION GAP 5 (5-19); BLOOD UREA NITROGEN 46 mg/dL (7-20); CALCIUM 8.6 mg/dL (8.4-10.2); CARBON DIOXIDE 29 mmol/L (22-30); CHLORIDE 102 mmol/L (98-107); GLUCOSE 94 mg/dL (75-110); POTASSIUM 3.4 mmol/L (3.6-5.0)
[2018-09-25] MEDS: NORMAL SALINE 1000 ML 1,000 ML IV PRN ×2 (01:30→15:34)
[2018-09-25] MEDS ORDERED: HYDROMORPHONE HCL INJ/PF 2 MG/ML AMPULE IV ONE ×2 (01:37→04:42)
[2018-09-25] MEDS ORDERED: ONDANSETRON HCL INJ/PF 4 MG/2 ML SDV IV ONE (01:37)
[2018-09-25 10:09] LABS: ABSOLUTE EOSINOPHILS # (AUTO) 0.1 10^3/uL (0.0-0.6); ABSOLUTE LYMPHOCYTES (AUTO) 1.4 10^3/uL (0.5-4.7); ABSOLUTE MONOCYTES (AUTO) 0.4 10^3/uL (0.1-1.4); ABSOLUTE NEUT (AUTO) 1.7 10^3/uL (1.7-8.2); BASOPHILS % (AUTO) 0.3 % (0-2); EOSINOPHILS % (AUTO) 2.6 % (0-6); HEMATOCRIT 24.6 % (36.0-47.0); LYMPHOCYTES % (AUTO) 38.1 % (13-45); MEAN CORPUSCULAR HEMOGLOBIN 27.3 pg (27.0-33.4); MEAN CORPUSCULAR HGB CONC 33.6 g/dL (32.0-36.0); MEAN CORPUSCULAR VOLUME 81 fl (80-97); MONOCYTES % (AUTO) 11.7 % (3-13); PLATELET COUNT 155 10^3/uL (150-450); RED BLOOD COUNT 3.02 10^6/uL (3.72-5.28); SEGMENTED NEUTROPHILS % (AUTO) 47.3 % (42-78); TOTAL CELLS COUNTED % (AUTO) 100 %; WHITE BLOOD COUNT 3.7 10^3/uL (4.0-10.5)
[2018-09-25 10:11] LABS: HEMOGLOBIN 8.3 g/dL (12.0-15.5)
[2018-09-25 10:33] LABS: ALBUMIN 3.1 g/dL (3.5-5.0); ALKALINE PHOSPHATASE 116 U/L (38-126); ANION GAP 6 (5-19); ASPARTATE AMINO TRANSFERASE 30 U/L (14-36); BILIRUBIN,DIRECT 0.2 mg/dL (0.0-0.4); BILIRUBIN,TOTAL 0.2 mg/dL (0.2-1.3); CALCIUM 8.2 mg/dL (8.4-10.2); CARBON DIOXIDE 26 mmol/L (22-30); CHLORIDE 107 mmol/L (98-107); GLUCOSE 86 mg/dL (75-110); POTASSIUM 3.4 mmol/L (3.6-5.0); TOTAL PROTEIN 5.7 g/dL (6.3-8.2)
[2018-09-25 10:51] LABS: BLOOD UREA NITROGEN 22 mg/dL (7-20)
[2018-09-25 11:13] LABS: APPEARANCE,URINE SLIGHTLY-CLOUDY; BILIRUBIN,URINE NEGATIVE (NEGATIVE); COLOR,URINE YELLOW; GLUCOSE, URINE 50 mg/dL (NEGATIVE); KETONES,URINE NEGATIVE (NEGATIVE); LEUKOCYTE ESTERASE,URINE TRACE (NEGATIVE); NITRITE,URINE NEGATIVE (NEGATIVE); PROTEIN,URINE NEGATIVE (NEGATIVE); URINE SPECIFIC GRAVITY 1.013; UROBILINOGEN,URINE NEGATIVE mg/dL (<2.0)
[2018-09-25 11:14] LABS: ADD MANUAL MICROSCOPIC YES
[2018-09-25 11:32] LABS: BACTERIA,URINE TRACE /HPF
[2018-09-25 15:42] VITALS: BP 95/60
== END 2018-09-25 16:00 | disposition short-term general hospital (02) ==
LOC: ER 07:01
DX: N17.9 Acute kidney failure, unspecified (principal); R11.2 Nausea with vomiting, unspecified; R53.81 Other malaise; R06.02 Shortness of breath; R00.0 Tachycardia, unspecified; Z94.4 Liver transplant status; Z90.49 Acquired absence of other specified parts of digestive tract
CPT/HCPCS: 36415; 82550; 83690; 84703; 85025; 80053; 81001; J1170; J2405 ×2; J7030 ×2; 87086; 96361; 96374; 96375; 96376; 99285

== ENCOUNTER 2018-10-08 13:29 | Inpatient (IN) | payer OTHER ==
[2018-10-08] MEDS ORDERED: PROMETHAZINE HCL INJ 25 MG/1 ML VIAL IV ONE (14:22)
[2018-10-08] MEDS ORDERED: ONDANSETRON HCL INJ/PF 4 MG/2 ML SDV IV ONE (14:22)
--- NOTE | 2018-10-08 14:26 | ER Document Report ---
ED General - General Chief Complaint: Nausea/Vomiting Stated Complaint: VOMITING Time Seen by Provider: 10/08/18 14:11 Primary Care Provider: TIERRA HERNANDEZ DO [Primary Care Provider] - Follow up as needed TRAVEL OUTSIDE OF THE [place] IN LAST 30 DAYS: No - HPI Notes: Patient is a 27-year-old female who presents to the emergency department for evaluation of nausea and vomiting. This is been ongoing for the last several weeks. She was actually seen here earlier. She states now she is not really vomiting she is only having dry heaves. She states she feels hungry but cannot keep anything down. She is still urinating. She is status post colectomy, so she states anything she eats causes mild diarrhea. She denies any abdominal pain. She was unaware of any fevers, although she felt warm today. She states she does not have a thermometer at home. - Related Data Allergies/Adverse Reactions: alcohol Allergy (Verified 10/08/18 13:30) HIVES/RASH, ITCHING morphine Allergy (Verified 10/08/18 13:30) HIVES/RASH, ITCHING Past Medical History - General Information source: Patient - Social History Smoking Status: Never Smoker Frequency of alcohol use: None Family History: Reviewed & Not Pertinent, Malignancy, Other - Interstitial cystitis Renal/ Medical History: Denies: Hx Peritoneal Dialysis GI Medical History: Reports: Hx Gastroesophageal Reflux Disease, Hx Ulcerative Colitis Past Surgical History: Reports: Hx Cholecystectomy, Hx Rectal Surgery - partial colectomy, Other - Liver transplant Review of Systems - Review of Systems Constitutional: See HPI EENT: No symptoms reported Cardiovascular: No symptoms reported Respiratory: No symptoms reported Gastrointestinal: See HPI Genitourinary: No symptoms reported Female Genitourinary: No symptoms reported Musculoskeletal: No symptoms reported Skin: No symptoms reported Neurological/Psychological: No symptoms reported Physical Exam - Vital signs Vitals: Temp Pulse Resp BP Pulse Ox 98.1 F 158 H 20 94/73 L 98 10/08/18 13:40 10/08/18 13:40 10/08/18 13:40 10/08/18 13:40 10/08/18 13:40 - Notes Notes: This is a very frail 27-year-old female who appears her stated age and amount of moderate distress. Vital signs reviewed, please refer to chart. Head is normocephalic, atraumatic. Pupils equal round, reactive to light. Neck is supple without meningismus. Heart is tachycardic with normal S1-S2. Lungs are clear to auscultation bilaterally. Abdomen is scaphoid, nontender, normoactive bowel sounds throughout. Multiple well-healed surgical scars noted about the abdomen. Extremities without cyanosis, clubbing. Posterior calves are nontender. Peripheral pulses are equal. Skin is warm and dry. Patient is awake, alert, neurological exam is nonfocal. Course - Re-evaluation Re-evalutation: 10/08/18 14:25 Patient presents emergency department for evaluation. She is markedly tachycardic on arrival. She has a BMI of 15 to begin with. I am concerned about significant malnutrition in this patient. She is given IV fluids, nausea medication. She is placed on a school bus monitor. We will continue to monitor. 10/08/18 19:44 Patient has an improvement in her vital signs but her symptoms continue. She has significant acute kidney injury and electrolyte abnormalities. I spoke with Dr. Camarena, he will admit the patient for further care. - Vital Signs Vital signs: Temp Pulse Resp BP Pulse Ox 98.1 F 158 H 9 L 97/55 L 100 10/08/18 13:40 10/08/18 13:40 10/08/18 18:05 10/08/18 18:05 10/08/18 18:05 - Laboratory Result Diagrams: 10/08/18 14:20 10/08/18 14:20 Laboratory results interpreted by me: 10/08/18 10/08/18 10/08/18 14:20 14:20 17:59 Hgb 11.8 L Hct 33.4 L MCV 79 L RDW 16.3 H Plt Count 510 H [place] % (Auto) 18.5 H Sodium 131.4 L Potassium 3.5 L Chloride 83 L BUN 55 H Creatinine 2.43 H Est GFR ( Amer) 29 L Est GFR (MDRD) Non-Af 24 L Glucose 132 H Calcium 10.4 H AST 61 H Alkaline Phosphatase 281 H Total Protein 9.9 H Albumin 5.3 H Urine Blood MODERATE H Ur Leukocyte Esterase SMALL H Discharge - Discharge Clinical Impression: Acute kidney injury superimposed on CKD, Dehydration, History of liver transplant Condition: Stable Disposition: ADMITTED INPATIENT Admitting Provider: Migue (Hospitalist) Unit Admitted: IMCU Referrals: TIERRA HERNANDEZ, [Primary Care Provider] - Follow up as needed
[2018-10-08] MEDS: NORMAL SALINE 1000 ML 1,000 ML IV PRN ×2 (14:40→15:49)
[2018-10-08 14:44] LABS: ABSOLUTE LYMPHOCYTES (AUTO) 1.4 10^3/uL (0.5-4.7); ABSOLUTE MONOCYTES (AUTO) 1.4 10^3/uL (0.1-1.4); ABSOLUTE NEUT (AUTO) 4.7 10^3/uL (1.7-8.2); BASOPHILS % (AUTO) 0.4 % (0-2); EOSINOPHILS % (AUTO) 0.2 % (0-6); HEMATOCRIT 33.4 % (36.0-47.0); HEMOGLOBIN 11.8 g/dL (12.0-15.5); LYMPHOCYTES % (AUTO) 18.7 % (13-45); MEAN CORPUSCULAR HEMOGLOBIN 27.7 pg (27.0-33.4); MEAN CORPUSCULAR HGB CONC 35.3 g/dL (32.0-36.0); MEAN CORPUSCULAR VOLUME 79 fl (80-97); MONOCYTES % (AUTO) 18.5 % (3-13); PLATELET COUNT 510 10^3/uL (150-450); RED BLOOD COUNT 4.26 10^6/uL (3.72-5.28); RED CELL DISTRIBUTION WIDTH 16.3 % (11.5-14.0); SEGMENTED NEUTROPHILS % (AUTO) 62.2 % (42-78); TOTAL CELLS COUNTED % (AUTO) 100 %; WHITE BLOOD COUNT 7.6 10^3/uL (4.0-10.5)
[2018-10-08 15:12] LABS: ALBUMIN 5.3 g/dL (3.5-5.0); ALKALINE PHOSPHATASE 281 U/L (38-126); ANION GAP 19 (5-19); ASPARTATE AMINO TRANSFERASE 61 U/L (14-36); BILIRUBIN,DIRECT 0.4 mg/dL (0.0-0.4); BILIRUBIN,TOTAL 0.9 mg/dL (0.2-1.3); BLOOD UREA NITROGEN 55 mg/dL (7-20); CALCIUM 10.4 mg/dL (8.4-10.2); CARBON DIOXIDE 29 mmol/L (22-30); CHLORIDE 83 mmol/L (98-107); GLUCOSE 132 mg/dL (75-110); POTASSIUM 3.5 mmol/L (3.6-5.0); TOTAL PROTEIN 9.9 g/dL (6.3-8.2)
[2018-10-08] MEDS ORDERED: NORMAL SALINE 1000 ML 1,000 ML IV ONE (16:44)
[2018-10-08 18:37] LABS: APPEARANCE,URINE SLIGHTLY-CLOUDY; BILIRUBIN,URINE NEGATIVE (NEGATIVE); COLOR,URINE YELLOW; GLUCOSE, URINE NEGATIVE (NEGATIVE); KETONES,URINE NEGATIVE (NEGATIVE); LEUKOCYTE ESTERASE,URINE SMALL (NEGATIVE); NITRITE,URINE NEGATIVE (NEGATIVE); PROTEIN,URINE NEGATIVE (NEGATIVE); URINE SPECIFIC GRAVITY 1.014; UROBILINOGEN,URINE NEGATIVE mg/dL (<2.0)
[2018-10-08] MEDS ORDERED: MAG HYDROX/AL HYDROX/SIMETH SUSP 30 ML UDCUP PO PRN (21:24)
[2018-10-08] MEDS ORDERED: ACETAMINOPHEN 325 MG TABLET PO PRN (21:29)
[2018-10-08] MEDS ORDERED: CHLORPROMAZINE HCL INJ 25 MG/1 ML AMPULE IV PRN (21:29)
[2018-10-08] MEDS ORDERED: ACETAMINOPHEN 650 MG SUPP.RECT PR PRN (21:29)
[2018-10-08 22:30] LABS: FREE T3 4.21 pg/mL (2.77-5.27); FREE T4 (FREE THYROXINE) 2.23 ng/dL (0.78-2.19)
[2018-10-08 22:43] LABS: THYROID STIMULATING HORMONE 4.68 uIU/mL (0.47-4.68)
[2018-10-09] MEDS: HEPARIN SOD (PORCINE) 5,000 UNIT/ML 1 ML VIAL SUBCUT SCH ×4 (00:01→21:18)
[2018-10-09] MEDS: PANTOPRAZOLE SODIUM 40 MG VIAL IV SCH ×3 (00:32→21:22)
[2018-10-09] MEDS: AZATHIOPRINE 50 MG TABLET PO SCH ×2 (00:32→21:21)
[2018-10-09] MEDS: RINGERS SOLUTION,LACTATED 1,000 ML IV PRN ×2 (00:38→03:59)
--- NOTE | 2018-10-09 02:02 | PDOC H&P ---
History of Present Illness Admission Date/PCP: 10/08/18 19:57 TIERRA HERNANDEZ DO Patient complains of: Nausea History of Present Illness: OLIVIER ORTIZ is a 27 year old female who presented to the emergency room with a several week history of intractable nausea without vomiting. Patient i ndicates that for the last 3 to 4 weeks she has been suffering from persistent nausea while retaining the ability to retain orally consumed fluids or solids. She admits occasional episodes of dry heaving. Additionally she reports an associated chronic mild diarrhea after eating. She further admits that she has continued to pass small amounts of dark urine and to have a poor to fair appetite. She denies other associated or accompanying signs and symptoms. She admits prior similar symptoms of lesser severity. She admits a history of chronic gastroesophageal reflux disease, a partial colectomy for ulcerative colitis and a liver transplant. She has not identified any additional aggravating or ameliorating factors for her nausea. In the emergency room she was found to have evidence of acute kidney injury with an elevated BUN and creatinine as well as persistent nausea with dry heaves despite antiemetic therapy with Zofran and Phenergan as well as IV fluid replacement. She was subsequently admitted for further evaluation and treatment. Past Medical History Cardiac Medical History: Denies: Coronary Artery Disease, DVT, Hyperlipidema, Hypertension, Pulmonary Embolism Pulmonary Medical History: Denies: Asthma, Chronic Obstructive Pulmonary Disease (COPD) EENT Medical History: Denies: Cataracts, Nose - Allergic rhinitis Neurological Medical History: Denies: Migraine, Multiple Sclerosis, Seizures Endocrine Medical History: Denies: Diabetes Mellitus Type 1, Diabetes Mellitus Type 2, Hyperthyroidism, Hypothyroidism, Obesity Renal/ Medical History: Denies: Chronic Kidney Disease, Nephrolithiasis Malignancy Medical History: Reports: None GI Medical History: Reports: Gastroesophageal Reflux Disease, Ulcerative Colitis, Other - Status post liver transplant for primary sclerosing cholangitis Denies: Cirrhosis, Crohn's Disease, Diverticulitis, Hepatitis, Hiatal Hernia, Peptic Ulcer Disease Musculoskeltal Medical History: Denies: Arthritis, Fibromyalgia, Gout Skin Medical History: Denies: Eczema, Psoriasis Psychiatric Medical History: Denies: Alcohol Dependency, Substance Abuse, Tobacco Dependency Traumatic Medical History: Reports: None Hematology: Reports: Anemia - Chronic Denies: Bleeding Tendencies Infectious Medical History: Denies: Hepatitis B, Hepatitis C, HIV Past Surgical History Past Surgical History: Reports: Cholecystectomy, Other - Liver transplant, partial colectomy with temporary colostomy and reversal Social History Information Source: Patient Lives with: Spouse/Significant other Smoking Status: Never Smoker Frequency of Alcohol Use: None Hx Recreational Drug Use: No Drugs: None Hx Prescription Drug Abuse: No - Advance Directive Resuscitation Status: Full Code Surrogate healthcare decision maker:: Mark Ortiz Family History Family History: Other - Interstitial cystitis, primary sclerosing cholangitis. denies: CAD, DM, Hypertension Parental Family History Reviewed: Yes Children Family History Reviewed: No Sibling(s) Family History Reviewed.: Yes Medication/Allergy Home Medications: Azathioprine [Imuran 50 mg Tablet] 50 mg PO QHS 10/08/18 Multivitamin [Daily Multiple Vitamin] 1 each PO DAILY 10/08/18 Tacrolimus [Prograf] 5 mg PO BID 10/08/18 Allergies/Adverse Reactions: alcohol Allergy (Verified 10/08/18 13:30) HIVES/RASH, ITCHING morphine Allergy (Verified 10/08/18 13:30) HIVES/RASH, ITCHING Review of Systems Constitutional: ABSENT: anorexia, chills, fever(s) Eyes: ABSENT: visual disturbances, other - Ocular pain Ears: ABSENT: hearing changes, other - Ear pain Nose, Mouth, and Throat: ABSENT: mouth pain, sore throat Cardiovascular: ABSENT: chest pain, palpitations Respiratory: ABSENT: cough, dyspnea Gastrointestinal: PRESENT: as per HPI, diarrhea, nausea, other - Dry heaves. ABSENT: abdominal pain, constipation, hematemesis, hematochezia, vomiting Genitourinary: ABSENT: dysuria, hematuria Musculoskeletal: ABSENT: back pain, joint swelling, muscle weakness Integumentary: ABSENT: pruritus, rash Neurological: ABSENT: confusion, convulsions, focal weakness, memory loss, syncope Psychiatric: ABSENT: anxiety, depression Endocrine: ABSENT: cold intolerance, heat intolerance Hematologic/Lymphatic: ABSENT: easy bleeding, easy bruising Physical Exam Vital Signs: Temp Pulse Resp BP Pulse Ox 98.1 F 158 H 9 L 97/55 L 100 10/08/18 13:40 10/08/18 13:40 10/08/18 18:05 10/08/18 18:05 10/08/18 18:05 Intake & Output 10/06/18 10/07/18 10/08/18 23:59 23:59 23:59 Intake Total 2000 Balance 2000 Weight 42.1 kg General appearance: PRESENT: no acute distress, cooperative, thin Head exam: PRESENT: atraumatic, normocephalic Eye exam: PRESENT: conjunctiva pale. ABSENT: conjunctival injection, nystagmus, scleral icterus Ear exam: PRESENT: normal external ear exam. ABSENT: bleeding, drainage Mouth exam: PRESENT: dry mucosa, neck supple Neck exam: ABSENT: JVD, thyromegaly, tracheal deviation Respiratory exam: PRESENT: clear to auscultation alex, symmetrical, unlabored Cardiovascular exam: PRESENT: RRR. ABSENT: clicks, gallop, rubs Pulses: PRESENT: normal radial pulses, normal dorsalis pedis pul Vascular exam: PRESENT: normal capillary refill. ABSENT: pallor GI/Abdominal exam: PRESENT: hypoactive bowel sounds, soft. ABSENT: tenderness Rectal exam: PRESENT: deferred Extremities exam: ABSENT: joint swelling, pedal edema, tenderness Musculoskeletal exam: PRESENT: full ROM, normal inspection Neurological exam: PRESENT: alert, oriented to person, oriented to place, oriented to time, oriented to situation, CN II-XII grossly intact. ABSENT: motor sensory deficit Psychiatric exam: PRESENT: appropriate affect, normal mood Skin exam: PRESENT: intact, warm. ABSENT: jaundice, rash, urticaria Results Laboratory Results: 10/08/18 14:20 10/08/18 14:20 10/08/18 10/08/18 10/08/18 14:20 14:20 14:20 WBC 7.6 RBC 4.26 Hgb 11.8 L Hct 33.4 L MCV 79 L MCH 27.7 MCHC 35.3 RDW 16.3 H Plt Count 510 H Seg Neutrophils % 62.2 Sodium 131.4 L Potassium 3.5 L Chloride 83 L Carbon Dioxide 29 Anion Gap 19 BUN 55 H Creatinine 2.43 H Est GFR ( Amer) 29 L Glucose 132 H Calcium 10.4 H Total Bilirubin 0.9 AST 61 H Alkaline Phosphatase 281 H Total Protein 9.9 H Albumin 5.3 H Lipase 95.0 Serum HCG, Qual NEGATIVE Urine Color Urine Appearance Urine pH Ur Specific [place] Urine Protein Urine Glucose (UA) Urine Ketones Urine Blood Urine Nitrite Ur Leukocyte Esterase Urine WBC (Auto) Urine RBC (Auto) 10/08/18 17:59 WBC RBC Hgb Hct MCV MCH MCHC RDW Plt Count Seg Neutrophils % Sodium Potassium Chloride Carbon Dioxide Anion Gap BUN Creatinine Est GFR ( Amer) Glucose Calcium Total Bilirubin AST Alkaline Phosphatase Total Protein Albumin Lipase Serum HCG, Qual Urine Color YELLOW Urine Appearance SLIGHTLY-CLOUDY Urine pH 5.0 Ur Specific [place] 1.014 Urine Protein NEGATIVE Urine Glucose (UA) NEGATIVE Urine Ketones NEGATIVE Urine Blood MODERATE H Urine Nitrite NEGATIVE Ur Leukocyte Esterase SMALL H Urine WBC (Auto) 12 Urine RBC (Auto) 3 Assessment and Plan - Diagnosis (1) Nausea without vomiting Is this a current diagnosis for this admission?: Yes Plan: Patient's nausea and dry heaves will be treated with supportive and symptomatic cares. She will receive IV fluid support and will also receive antiemetics utilizing Thorazine 12.5 mg IV every 4 hours on a as needed basis. A thyroid profile will be obtained. If patient develops any pain with her nausea she will use Nubain 10 mg IV every 3 hours on a as needed basis. (2) Acute kidney injury superimposed on chronic kidney disease Is this a current diagnosis for this admission?: Yes Plan: Patient will be treated with IV fluids and her daily lab work will be followed closely including a CBC, metabolic profile and magnesium level. (3) History of liver transplant Is this a current diagnosis for this admission?: Yes Plan: Patient will be continued on her usual antirejection protocol during her hospital course. (4) Microcytic anemia Is this a current diagnosis for this admission?: Yes Plan: Patient's hemoglobin will be followed closely and she will be continued on appropriate vitamin and iron supplementation as required for repletion. Anemia studies will be obtained. - Time Time Spent with patient: 25-34 minutes Medications reviewed and adjusted accordingly: Yes Anticipated discharge: Home - Inpatient Certification Based on my medical assessment, after consideration of the patient's comorbidities, presenting symptoms, or acuity I expect that the services needed warrant INPATIENT care.: Yes I certify that my determination is in accordance with my understanding of Medicare's requirements for reasonable and necessary INPATIENT services [42 CFR 412.3e].: Yes Medical Necessity: Significant Comorbidiites Make Outpatient Treatment Too Risky, Need Close Monitoring Due to Risk of Patient Decompensation, Need For IV Fluids, Need For Continuous Telemetry Monitoring, Risk of Complication if Not Cared For in Hospital, Risk of Diagnosis Which Will Require Inpatient Eval/Care/Monitoring
[2018-10-09] MEDS ORDERED: NALBUPHINE HCL INJ 10 MG/1 ML AMPULE IV PRN ×2 (02:03→07:32)
[2018-10-09 05:51] LABS: ANION GAP 8 (5-19); CALCIUM 8.5 mg/dL (8.4-10.2); CARBON DIOXIDE 29 mmol/L (22-30); CHLORIDE 97 mmol/L (98-107); GLUCOSE 95 mg/dL (75-110); HEMATOCRIT 22.9 % (36.0-47.0); MEAN CORPUSCULAR HEMOGLOBIN 28.1 pg (27.0-33.4); MEAN CORPUSCULAR HGB CONC 35.1 g/dL (32.0-36.0); MEAN CORPUSCULAR VOLUME 80 fl (80-97); PLATELET COUNT 194 10^3/uL (150-450); RED BLOOD COUNT 2.87 10^6/uL (3.72-5.28); WHITE BLOOD COUNT 4.4 10^3/uL (4.0-10.5)
[2018-10-09 05:52] LABS: HEMOGLOBIN 8.1 g/dL (12.0-15.5)
[2018-10-09 06:01] LABS: BLOOD UREA NITROGEN 35 mg/dL (7-20); POTASSIUM 2.8 mmol/L (3.6-5.0)
--- NOTE | 2018-10-09 09:00 | PDOC PROGRESS REPORT ---
Subjective Progress Note for:: 10/09/18 Subjective:: No complaints this a.m. Reason For Visit: EZIO, INTERACTABLE NAUSEA AND VOMITING Physical Exam Vital Signs: Temp Pulse Resp BP Pulse Ox 98.2 F 67 20 94/53 L 100 10/09/18 03:56 10/09/18 07:00 10/09/18 03:56 10/09/18 03:56 10/09/18 03:56 Intake & Output 10/08/18 10/09/18 10/10/18 06:59 06:59 06:59 Intake Total 4060 1000 Balance 4060 1000 Weight 43.8 kg General appearance: PRESENT: no acute distress, well-developed, well-nourished Neck exam: ABSENT: carotid bruit, JVD, lymphadenopathy, thyromegaly Respiratory exam: PRESENT: clear to auscultation alex. ABSENT: rales, rhonchi, wheezes Cardiovascular exam: PRESENT: RRR. ABSENT: diastolic murmur, rubs, systolic murmur Pulses: PRESENT: normal dorsalis pedis pul Vascular exam: PRESENT: normal capillary refill GI/Abdominal exam: PRESENT: hyperactive bowel sounds, soft, other - Surgical incision from liver transplant Extremities exam: PRESENT: full ROM. ABSENT: calf tenderness, clubbing, pedal edema Neurological exam: PRESENT: alert, awake, oriented to person, oriented to place, oriented to time, oriented to situation, CN II-XII grossly intact. ABSENT: motor sensory deficit Psychiatric exam: PRESENT: appropriate affect, normal mood. ABSENT: homicidal ideation, suicidal ideation Skin exam: PRESENT: dry, intact, warm. ABSENT: cyanosis, rash Results Laboratory Results: 10/09/18 04:49 10/09/18 04:49 10/08/18 10/08/18 10/08/18 14:20 14:20 14:20 WBC 7.6 RBC 4.26 Hgb 11.8 L Hct 33.4 L MCV 79 L MCH 27.7 MCHC 35.3 RDW 16.3 H Plt Count 510 H Seg Neutrophils % 62.2 Sodium 131.4 L Potassium 3.5 L Chloride 83 L Carbon Dioxide 29 Anion Gap 19 BUN 55 H Creatinine 2.43 H Est GFR ( Amer) 29 L Glucose 132 H Calcium 10.4 H Magnesium Total Bilirubin 0.9 AST 61 H Alkaline Phosphatase 281 H Total Protein 9.9 H Albumin 5.3 H Lipase 95.0 TSH Free T4 Free T3 pg/mL Serum HCG, Qual NEGATIVE Urine Color Urine Appearance Urine pH Ur Specific [place] Urine Protein Urine Glucose (UA) Urine Ketones Urine Blood Urine Nitrite Ur Leukocyte Esterase Urine WBC (Auto) Urine RBC (Auto) 10/08/18 10/08/18 10/09/18 14:20 17:59 04:49 WBC 4.4 RBC 2.87 L Hgb 8.1 L D Hct 22.9 L MCV 80 MCH 28.1 MCHC 35.1 RDW 16.0 H Plt Count 194 Seg Neutrophils % Sodium Potassium Chloride Carbon Dioxide Anion Gap BUN Creatinine Est GFR ( Amer) Glucose Calcium Magnesium Total Bilirubin AST Alkaline Phosphatase Total Protein Albumin Lipase TSH 4.68 Free T4 2.23 H Free T3 pg/mL 4.21 Serum HCG, Qual Urine Color YELLOW Urine Appearance SLIGHTLY-CLOUDY Urine pH 5.0 Ur Specific [place] 1.014 Urine Protein NEGATIVE Urine Glucose (UA) NEGATIVE Urine Ketones NEGATIVE Urine Blood MODERATE H Urine Nitrite NEGATIVE Ur Leukocyte Esterase SMALL H Urine WBC (Auto) 12 Urine RBC (Auto) 3 10/09/18 04:49 WBC RBC Hgb Hct MCV MCH MCHC RDW Plt Count Seg Neutrophils % Sodium 133.5 L Potassium 2.8 L* Chloride 97 L Carbon Dioxide 29 Anion Gap 8 BUN 35 H D Creatinine 1.45 H Est GFR ( Amer) 53 L Glucose 95 Calcium 8.5 Magnesium 2.3 Total Bilirubin AST Alkaline Phosphatase Total Protein Albumin Lipase TSH Free T4 Free T3 pg/mL Serum HCG, Qual Urine Color Urine Appearance Urine pH Ur Specific [place] Urine Protein Urine Glucose (UA) Urine Ketones Urine Blood Urine Nitrite Ur Leukocyte Esterase Urine WBC (Auto) Urine RBC (Auto) Assessment and Plan - Diagnosis (1) Nausea without vomiting Is this a current diagnosis for this admission?: Yes Plan: Patient's nausea and dry heaves will be treated with supportive and symptomatic cares. She will receive IV fluid support and will also receive antiemetics utilizing Thorazine 12.5 mg IV every 4 hours on a as needed basis. A thyroid profile will be obtained. If patient develops any pain with her nausea she will use Nubain 10 mg IV every 3 hours on a as needed basis. October 09, 2018-resolved at this time. We will continue to follow patient c ontinue PRN antiemetics. (2) Acute kidney injury superimposed on chronic kidney disease Is this a current diagnosis for this admission?: Yes Plan: Patient will be treated with IV fluids and her daily lab work will be followed closely including a CBC, metabolic profile and magnesium level. October 09, 2018-patient is back to her baseline creatinine. Will DC IV fluids. Continue to encourage p.o. intake. (3) History of liver transplant Is this a current diagnosis for this admission?: Yes Plan: Patient will be continued on her usual antirejection protocol during her hospital course. October 09, 2018-continue patient's antirejection medications at this time (4) Microcytic anemia Is this a current diagnosis for this admission?: Yes Plan: Patient's hemoglobin will be followed closely and she will be continued on appropriate vitamin and iron supplementation as required for repletion. Anemia studies will be obtained. October 09, 2018-most likely chronic in nature as she does have history of liver failure with transplant. Continue to follow (5) Hypokalemia Is this a current diagnosis for this admission?: Yes Plan: October 09, 2018-patient potassium this morning 2.9. I will give patient potassium chloride 10 mEq hourly x6 doses. Repeat BMP in the a.m. - Time Time Spent with patient: 15-24 minutes - Inpatient Certification Based on my medical assessment, after consideration of the patient's comorbidities, presenting symptoms, or acuity I expect that the services needed warrant INPATIENT care.: Yes I certify that my determination is in accordance with my understanding of Medicare's requirements for reasonable and necessary INPATIENT services [42 CFR 412.3e].: Yes Medical Necessity: Other - Electrolyte replacement,
[2018-10-09] MEDS ORDERED: TACROLIMUS ANHYDROUS 1 MG CAPSULE PO SCH ×2 (10:00→22:00)
[2018-10-09] MEDS ORDERED: TACROLIMUS 5 MG PO SCH (10:00)
[2018-10-09] MEDS: MULTIVITAMIN TABLET PO SCH (10:04)
[2018-10-09] MEDS: POTASSI CL 20 MEQ/50 ML RIDER 20 MEQ/50 ML RTUPB IV SCH ×3 (10:07→13:35)
[2018-10-09] MEDS: POTASSIUM CHLORIDE 10 MEQ CAPSULE.ER PO SCH ×2 (12:52→16:56)
[2018-10-09] MEDS ORDERED: POTASSIUM CHLORIDE 10 MEQ CAPSULE.ER PO ONE (14:00)
[2018-10-10] MEDS: HEPARIN SOD (PORCINE) 5,000 UNIT/ML 1 ML VIAL SUBCUT SCH (05:15)
[2018-10-10 08:36] LABS: HEMATOCRIT 23.2 % (36.0-47.0); HEMOGLOBIN 8.1 g/dL (12.0-15.5); MEAN CORPUSCULAR VOLUME 80 fl (80-97); PLATELET COUNT 204 10^3/uL (150-450); RED BLOOD COUNT 2.89 10^6/uL (3.72-5.28); WHITE BLOOD COUNT 3.2 10^3/uL (4.0-10.5)
[2018-10-10 09:07] LABS: ANION GAP 9 (5-19); BLOOD UREA NITROGEN 23 mg/dL (7-20); CALCIUM 8.8 mg/dL (8.4-10.2); CARBON DIOXIDE 28 mmol/L (22-30); CHLORIDE 99 mmol/L (98-107); GLUCOSE 89 mg/dL (75-110); POTASSIUM 3.5 mmol/L (3.6-5.0)
[2018-10-10] MEDS: MULTIVITAMIN TABLET PO SCH (09:24)
[2018-10-10] MEDS: POTASSIUM CHLORIDE 10 MEQ CAPSULE.ER PO SCH (09:24)
[2018-10-10] MEDS: PANTOPRAZOLE SODIUM 40 MG VIAL IV SCH (09:24)
--- NOTE | 2018-10-10 09:33 | Progress Note Acknowledgement ---
Progress Note Acknowledgement Progess Note Acknowledgement: I, the undersigned member of the medical staff with appropriate privileges and with supervisory authority over [Clifford Wilson], a dependent practice allied health professional, acknowledge that I have reviewed the progress notes entered on this patient, and in my professional judgment believe that the assessment made and/or any care evidenced was appropriate
--- NOTE | 2018-10-10 09:36 | PDOC DISCHARGE SUMMARY ---
General - Admit/Disc Date/PCP Admission Date/Primary Care Provider: 10/08/18 19:57 TIERRA HERNANDEZ, Discharge Date: 10/10/18 - Discharge Diagnosis (1) Nausea without vomiting Is this a current diagnosis for this admission?: Yes (2) Acute kidney injury superimposed on chronic kidney disease Is this a current diagnosis for this admission?: Yes (3) History of liver transplant Is this a current diagnosis for this admission?: Yes (4) Microcytic anemia Is this a current diagnosis for this admission?: Yes (5) Hypokalemia Is this a current diagnosis for this admission?: Yes - Additional Information Resuscitation Status: Full Code Discharge Diet: As Tolerated Discharge Activity: Activity As Tolerated Prescriptions: Ondansetron [Zofran Odt 4 mg Tablet] 4 mg PO Q4HP PRN #30 tab.rapdis PRN Reason: Home Medications: Azathioprine [Imuran 50 mg Tablet] 50 mg PO QHS 10/08/18 Multivitamin [Daily Multiple Vitamin] 1 each PO DAILY 10/08/18 Tacrolimus [Prograf] 5 mg PO Q12 10/08/18 Ondansetron [Zofran Odt 4 mg Tablet] 4 mg PO Q4HP PRN #30 tab.rapdis 10/10/18 History of Present Illness Patient complains of: None this a.m. History of Present Illness: OLIVIER ORTIZ is a 27 year old female who was admitted for intractable nausea without vomiting and acute kidney injury. Hospital Course Hospital Course: Patient was admitted and treated with IV fluids and IV antiemetics utilizing Thorazine on a every 4 hour basis as needed for her nausea and vomiting. Over the course of 2 days patient's creatinine has normalized she is without nausea or vomiting at this time. Has improved sufficiently return home. Patient was found to have a microcytic anemia which I will defer to her primary care practitioner. This macrocytic anemia is mild in nature. I will send her home on Zofran 4 mg ODT tablets 1 every 4 hours as needed. I have discussed this patient patient agrees with plan of care. Physical Exam Vital Signs: Temp Pulse Resp BP Pulse Ox 97.9 F 72 16 96/61 L 100 10/10/18 00:08 10/10/18 07:00 10/10/18 00:08 10/10/18 00:10 10/10/18 00:08 Intake & Output 10/09/18 10/10/18 10/11/18 06:59 06:59 06:59 Intake Total 4060 2070 Balance 4060 Weight 43.8 kg General appearance: PRESENT: no acute distress, well-developed, well-nourished Head exam: PRESENT: atraumatic, normocephalic Eye exam: PRESENT: conjunctiva pink, EOMI, PERRLA. ABSENT: scleral icterus Ear exam: PRESENT: normal external ear exam Mouth exam: PRESENT: moist, tongue midline Neck exam: ABSENT: carotid bruit, JVD, lymphadenopathy, thyromegaly Respiratory exam: PRESENT: clear to auscultation alex. ABSENT: rales, rhonchi, wheezes Cardiovascular exam: PRESENT: RRR. ABSENT: diastolic murmur, rubs, systolic murmur Pulses: PRESENT: normal dorsalis pedis pul Vascular exam: PRESENT: normal capillary refill GI/Abdominal exam: PRESENT: normal bowel sounds, soft. ABSENT: distended, guarding, mass, organolmegaly, rebound, tenderness Rectal exam: PRESENT: deferred Extremities exam: PRESENT: full ROM. ABSENT: calf tenderness, clubbing, pedal edema Neurological exam: PRESENT: alert, awake, oriented to person, oriented to place, oriented to time, oriented to situation, CN II-XII grossly intact. ABSENT: motor sensory deficit Psychiatric exam: PRESENT: appropriate affect, normal mood. ABSENT: homicidal ideation, suicidal ideation Skin exam: PRESENT: dry, intact, warm, other - Abdominal scar from liver transplant. ABSENT: cyanosis, rash Results Laboratory Results: 10/10/18 07:59 10/10/18 07:59 10/10/18 10/10/18 07:59 07:59 WBC 3.2 L RBC 2.89 L Hgb 8.1 L Hct 23.2 L MCV 80 MCH 28.0 MCHC 35.0 RDW 16.0 H Plt Count 204 Sodium 136.1 L Potassium 3.5 L Chloride 99 Carbon Dioxide 28 Anion Gap 9 BUN 23 H Creatinine 1.19 Est GFR ( Amer) > 60 Glucose 89 Calcium 8.8 Magnesium 2.4 H 10/08/18 17:59 Clean Catch Midstream Urine Culture - Final NO GROWTH 2 DAYS Qualifiers - * PATIENT BEING DISCHARGED WITH ANY OF THE FOLLOWING DIAGNOSIS: No Acute Heart Failure - Is this a Heart Failure Patient?: No Plan Time Spent: Greater than 30 Minutes
[2018-10-10 10:56] VITALS: BP 92/55
== END 2018-10-10 11:28 | disposition home or self-care (01) | DRG 683 ==
LOC: ER 13:29 → EH 19:57 → 3N 22:32
PROVIDERS: ADMIT Emergency Medicine; ATTEND Emergency Medicine
DX: N17.9 Acute kidney failure, unspecified (principal); E46 Unspecified protein-calorie malnutrition; Z68.1 Body mass index [BMI] 19.9 or less, adult; Z94.4 Liver transplant status; R11.2 Nausea with vomiting, unspecified; K21.9 Gastro-esophageal reflux disease without esophagitis; E87.6 Hypokalemia; D50.9 Iron deficiency anemia, unspecified; E86.0 Dehydration; N18.9 Chronic kidney disease, unspecified; Z90.49 Acquired absence of other specified parts of digestive tract
CPT/HCPCS: 36415; 80048; 80053; 81001; 83690; 83735; 84439; 84443; 84481; 84703; 85025; 85027; 87086; 96361; 96374; 96375; 99284; J2405; J2550; J3480; J3490; J7030; J7120; J7500; J7507; S0164

== ENCOUNTER 2018-12-25 17:03 | Inpatient (IN) | payer OTHER ==
--- NOTE | 2018-12-25 17:25 | ER Document Report ---
ED Medical Screen (RME) - General Chief Complaint: Nausea Stated Complaint: NAUSEA Time Seen by Provider: 12/25/18 17:21 Primary Care Provider: TIERRA HERNANDEZ DO [Primary Care Provider] - Follow up as needed Mode of Arrival: Wheelchair Information source: Patient Notes: 28-year-old female presents to ED for complaint of right hip pain nausea and diarrhea 1-1/2 to 2 weeks. She states she has a medical history of ulcerative colitis and a liver transplant about 3 years ago in [place]. She states she has been down here for about a year and is moving back to [place] Saturday she is still on antirejection medicine. Dates she has not had a fever. She has had a blood pressure of 90/54 and a pulse of between 120 and 150. Patient states she does not have a colon she has a J-pouch to the ulcerative colitis. Patient states she did not have a menstrual cycle in November. I have greeted and performed a rapid initial assessment of this patient. A comprehensive ED assessment and evaluation of the patient, analysis of test results and completion of medical decision making process will be conducted by an additional ED providers. TRAVEL OUTSIDE OF THE [place] IN LAST 30 DAYS: No - Related Data Allergies/Adverse Reactions: alcohol Allergy (Verified 12/25/18 17:20) HIVES/RASH, ITCHING morphine Allergy (Verified 12/25/18 17:20) HIVES/RASH, ITCHING Past Medical History - Past Medical History Cardiac Medical History: Denies: Hx Coronary Artery Disease, Hx DVT, Hx Hypercholesterolemia, Hx Hypertension, Hx Pulmonary Embolism Pulmonary Medical History: Denies: Hx Asthma, Hx COPD Neurological Medical History: Denies: Hx Migraine, Hx Seizures Endocrine Medical History: Denies: Hx Diabetes Mellitus Type 1, Hx Diabetes Mellitus Type 2, Hx Hyperthyroidism, Hx Hypothyroidism Renal/ Medical History: Denies: Hx Peritoneal Dialysis GI Medical History: Reports: Hx Gastroesophageal Reflux Disease, Hx Ulcerative Colitis. Denies: Hx Cirrhosis, Hx Crohn's Disease, Hx Diverticulitis, Hx Hepatitis, Hx Hiatal Hernia Musculoskeltal Medical History: Denies Hx Arthritis, Denies Hx Fibromyalgia, Denies Hx Gout Skin Medical History: Denies Hx Eczema, Denies Hx Psoriasis Infectious Medical History: Denies: Hx Hepatitis, Hx HIV Past Surgical History: Reports: Hx Cholecystectomy, Hx Rectal Surgery - partial colectomy, Other - Liver transplant, partial colectomy with temporary colostomy and reversal Physical Exam - Vital signs Vitals: Temp Pulse Resp BP Pulse Ox 98.7 F 149 H 22 H 80/52 L 96 12/25/18 17:08 12/25/18 17:08 12/25/18 17:08 12/25/18 17:08 12/25/18 17:08 Course - Vital Signs Vital signs: Temp Pulse Resp BP Pulse Ox 98.7 F 149 H 22 H 80/52 L 96 12/25/18 17:08 12/25/18 17:08 12/25/18 17:08 12/25/18 17:08 12/25/18 17:08 Doctor's Discharge - Discharge Referrals: TIERRA HERNANDEZ, DO [Primary Care Provider] - Follow up as needed
[2018-12-25] MEDS ORDERED: NORMAL SALINE 1000 ML 1,000 ML IV ONE (17:27)
--- NOTE | 2018-12-25 18:03 | ER Document Report ---
ED General - General Chief Complaint: Nausea Stated Complaint: NAUSEA Time Seen by Provider: 12/25/18 17:21 Primary Care Provider: TIERRA HERNANDEZ DO [Primary Care Provider] - Follow up as needed Mode of Arrival: Wheelchair TRAVEL OUTSIDE OF THE [place] IN LAST 30 DAYS: No - HPI Notes: 28-year-old female with a chief complaint of anorexia, diminished oral intake weakness and dehydration. She is also having chronic recurrent right hip pain. She has a history of ulcerative colitis and has had a previous colectomy. 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 She has had some nausea but has had no vomiting and says that she has been taking her usual antirejection medicines. She is not on steroids. She says blood pressure is "always low" typically running 80-90 systolic. She denies fever or chills. - Related Data Allergies/Adverse Reactions: alcohol Allergy (Verified 12/25/18 17:20) HIVES/RASH, ITCHING morphine Allergy (Verified 12/25/18 17:20) HIVES/RASH, ITCHING Past Medical History - General Information source: Patient, Relative - Social History Smoking Status: Never Smoker Chew tobacco use (# tins/day): No Frequency of alcohol use: None Drug Abuse: None Lives with: Family Family History: Other - Interstitial cystitis, primary sclerosing cholangitis. denies: CAD, DM, Hypertension Patient has suicidal ideation: No Patient has homicidal ideation: No - Past Medical History Cardiac Medical History: Denies: Hx Coronary Artery Disease, Hx DVT, Hx Hypercholesterolemia, Hx Hypertension, Hx Pulmonary Embolism Pulmonary Medical History: Denies: Hx Asthma, Hx COPD Neurological Medical History: Denies: Hx Migraine, Hx Seizures Endocrine Medical History: Denies: Hx Diabetes Mellitus Type 1, Hx Diabetes Mellitus Type 2, Hx Hyperthyroidism, Hx Hypothyroidism Renal/ Medical History: Denies: Hx Peritoneal Dialysis GI Medical History: Reports: Hx Gastroesophageal Reflux Disease, Hx Ulcerative Colitis, Other - Status post liver transplant as indicated in HPI.. Denies: Hx Cirrhosis, Hx Crohn's Disease, Hx Diverticulitis, Hx Hepatitis, Hx Hiatal Hernia Musculoskeletal Medical History: Denies Hx Arthritis, Denies Hx Fibromyalgia, Denies Hx Gout Skin Medical History: Denies Hx Eczema, Denies Hx Psoriasis Infectious Medical History: Denies: Hx Hepatitis, Hx HIV Past Surgical History: Reports: Hx Cholecystectomy, Hx Rectal Surgery - partial colectomy, Other - Liver transplant, partial colectomy with temporary colostomy and reversal Review of Systems - Review of Systems Notes: Constitutional: Negative for fever. HENT: Negative for sore throat. Eyes: Negative for visual changes. Cardiovascular: Negative for chest pain. Respiratory: Negative for shortness of breath. Gastrointestinal: As per HPI. Genitourinary: Negative for dysuria. Musculoskeletal: Hip pain on the right as per HPI. Denies trauma. Negative for back pain. Skin: Negative for rash. Neurological: Negative for headaches, weakness or numbness. 10 point ROS negative except as marked above and in HPI. Physical Exam - Vital signs Vitals: Temp Pulse Resp BP Pulse Ox 98.7 F 149 H 22 H 80/52 L 96 12/25/18 17:08 12/25/18 17:08 12/25/18 17:08 12/25/18 17:08 12/25/18 17:08 Notes: GENERAL: Chronically ill-appearing female approximately stated age. SKIN: Patient appears pale and dehydrated. Cap refill is about 2 seconds. She has some excoriated lesions of the right forehead area which she says is a chron ic recurrent condition because she is anxious and tends to pick at this area. HEAD: Normocephalic atraumatic. EYES: PERRLA. Conjunctivae and sclerae clear. EARS: CANALS AND TMS CLEAR. NOSE: CLEAR. MOUTH: Tacky oral mucosa. Good dentition. No stridor or edema. No drooling. NECK: Supple. No masses or thyromegaly. No adenopathy. Carotids 2+ without bruits. No JVD. BACK: Symmetrical without tenderness. CHEST: Respirations unlabored. Breath sounds clear and symmetrical. HEART: Regular rhythm. No murmur gallop or rub. ABDOMEN: Multiple scars. Nontender soft without masses, organomegaly or rebound. Bowel sounds normally active. No bruits. GENITALIA: Deferred. EXTREMITIES: No edema. No calf tenderness. Cap refill less than 2 seconds. Dorsalis pedis and posterior tibial pulses 2 + and symmetrical. NEUROLOGICAL: GCS 15. Alert and oriented x3. Normal gait. Fluent speech. Cranial nerves II through XII intact. Sensorimotor and cerebellar normal. Normal tone. Course - Re-evaluation Re-evalutation: 12/25/18 20:39 Lab findings consistent with acute kidney injury with a creatinine above 5.0. BUN is in the 80s. Potassium is normal. Patient feels better after receiving 1 L normal saline and now has a systolic blood pressure 120. Findings have been discussed with the on-call hospitalist Dr. Mikie Fernando who will admit the patient to stepdown unit. - Vital Signs Vital signs: Temp Pulse Resp BP Pulse Ox 98.7 F 93 16 99/58 L 100 12/25/18 17:08 12/25/18 20:33 12/25/18 20:01 12/25/18 20:33 12/25/18 20:01 - Laboratory Result Diagrams: 12/25/18 18:07 12/25/18 18:07 Laboratory results interpreted by me: 12/25/18 12/25/18 18:07 18:07 Hgb 9.4 L Hct 27.8 L MCV 72 L MCH 24.1 L RDW 14.1 H Plt Count 500 H [place] % (Auto) 16.8 H Sodium 128.8 L Potassium 3.5 L Chloride 77 L Carbon Dioxide 32 H Anion Gap 20 H BUN 83 H Creatinine 5.69 H Est GFR ( Amer) 11 L Est GFR (MDRD) Non-Af 9 L Alkaline Phosphatase 217 H Discharge - Discharge Clinical Impression: Acute kidney injury, Dehydration Condition: Fair Disposition: ADMITTED INPATIENT Admitting Provider: Abdullahi (Hospitalist) Unit Admitted: IMCU Referrals: TIERRA HERNANDEZ, [Primary Care Provider] - Follow up as needed
[2018-12-25 18:23] LABS: ABSOLUTE LYMPHOCYTES (AUTO) 1.4 10^3/uL (0.5-4.7); ABSOLUTE NEUT (AUTO) 3.5 10^3/uL (1.7-8.2); BASOPHILS % (AUTO) 0.2 % (0-2); EOSINOPHILS % (AUTO) 0.2 % (0-6); HEMATOCRIT 27.8 % (36.0-47.0); HEMOGLOBIN 9.4 g/dL (12.0-15.5); LYMPHOCYTES % (AUTO) 23.7 % (13-45); MEAN CORPUSCULAR HEMOGLOBIN 24.1 pg (27.0-33.4); MEAN CORPUSCULAR HGB CONC 33.8 g/dL (32.0-36.0); MEAN CORPUSCULAR VOLUME 72 fl (80-97); MONOCYTES % (AUTO) 16.8 % (3-13); PLATELET COUNT 500 10^3/uL (150-450); RED BLOOD COUNT 3.89 10^6/uL (3.72-5.28); RED CELL DISTRIBUTION WIDTH 14.1 % (11.5-14.0); SEGMENTED NEUTROPHILS % (AUTO) 59.1 % (42-78); TOTAL CELLS COUNTED % (AUTO) 100 %
[2018-12-25 18:47] LABS: ALBUMIN 4.5 g/dL (3.5-5.0); ALKALINE PHOSPHATASE 217 U/L (38-126); ASPARTATE AMINO TRANSFERASE 28 U/L (14-36); BILIRUBIN,DIRECT 0.4 mg/dL (0.0-0.4); BILIRUBIN,TOTAL 0.7 mg/dL (0.2-1.3); BLOOD UREA NITROGEN 83 mg/dL (7-20); CALCIUM 10.1 mg/dL (8.4-10.2); GLUCOSE 99 mg/dL (75-110); POTASSIUM 3.5 mmol/L (3.6-5.0)
[2018-12-25 18:55] LABS: CHLORIDE 77 mmol/L (98-107)
[2018-12-25 18:56] LABS: ANION GAP 20 (5-19); CARBON DIOXIDE 32 mmol/L (22-30)
[2018-12-25] MEDS: HYDROMORPHONE HCL INJ/PF 2 MG/ML AMPULE IV PRN (18:57)
[2018-12-25] MEDS ORDERED: MAG HYDROX/AL HYDROX/SIMETH SUSP 30 ML UDCUP PO PRN (20:36)
[2018-12-25] MEDS ORDERED: MAGNESIUM HYDROXIDE SUSP 30 ML UDCUP PO PRN (20:36)
[2018-12-25] MEDS ORDERED: NORMAL SALINE 1000 ML 1,000 ML IV SCH (20:45)
[2018-12-25 20:54] LABS: APPEARANCE,URINE CLOUDY; BILIRUBIN,URINE NEGATIVE (NEGATIVE); COLOR,URINE YELLOW; GLUCOSE, URINE NEGATIVE (NEGATIVE); KETONES,URINE TRACE mg/dL (NEGATIVE); PROTEIN,URINE 30 mg/dL (NEGATIVE); URINE SPECIFIC GRAVITY 1.012; UROBILINOGEN,URINE NEGATIVE mg/dL (<2.0)
[2018-12-25 21:39] LABS: PHOSPHORUS 4.5 mg/dL (2.5-4.5)
[2018-12-25] MEDS ORDERED: NORMAL SALINE 1000 ML 3,000 ML IV PRN (22:00)
--- NOTE | 2018-12-25 22:43 | EKG REPORT ---
SEVERITY:- BORDERLINE ECG - SINUS RHYTHM BORDERLINE Q WAVES IN INFERIOR LEADS INFERIOR Q WAVES, PROBABLY NORMAL VARIATION : Confirmed by: Penny Raygoza 25-Dec-2018 22:42:13
[2018-12-25] MEDS ORDERED: FLUOXETINE HCL 20 MG CAPSULE PO ONE (23:30)
[2018-12-25] MEDS ORDERED: METHYLPHENIDATE HCL 5 MG TABLET PO ONE (23:30)
[2018-12-25] MEDS ORDERED: LORAZEPAM INJ 2 MG/1 ML VIAL IV ONE (23:33)
[2018-12-26] MEDS: HEPARIN SOD (PORCINE) 5,000 UNIT/ML 1 ML VIAL SUBCUT SCH ×4 (00:02→22:25)
[2018-12-26] MEDS: NORMAL SALINE 1000 ML 1,000 ML IV PRN ×3 (00:02→11:54)
--- NOTE | 2018-12-26 04:29 | PDOC H&P ---
History of Present Illness Admission Date/PCP: 12/25/18 20:48 TIERRA HERNANDEZ DO Patient complains of: Depression and nausea History of Present Illness: OLIVIER ORTIZ is a 28 year old female with a complicated past medical history of ulcerative colitis status post colectomy, liver transplant on Prograf and Imuran presents with 2 weeks of severe depression, anorexia developing nausea she presents to the emergency room is found to have a BMI of only 10 and acute renal failure with a BUN of 83 and a creatinine of 5.6. Patient complains of severe depression following a moved to the area. She denies alcohol or drugs, suicidal or homicidal ideation. She denies previous history of eating disorder or medication for depression. Despite her poor appetite she is continue to take her medications. Past Medical History Cardiac Medical History: Denies: Coronary Artery Disease, DVT, Hyperlipidema, Hypertension, Pulmonary Embolism Pulmonary Medical History: Denies: Asthma, Chronic Obstructive Pulmonary Disease (COPD) Neurological Medical History: Denies: Migraine, Seizures Endocrine Medical History: Denies: Diabetes Mellitus Type 1, Diabetes Mellitus Type 2, Hyperthyroidism, Hypothyroidism Renal/ Medical History: Reports: None Malignancy Medical History: Reports: None GI Medical History: Reports: Gastroesophageal Reflux Disease, Ulcerative Colitis, Other - Status post liver transplant as indicated in HPI. Denies: Cirrhosis, Crohn's Disease, Diverticulitis, Hepatitis, Hiatal Hernia Musculoskeltal Medical History: Denies: Arthritis, Fibromyalgia, Gout Skin Medical History: Denies: Eczema, Psoriasis Psychiatric Medical History: Reports: Depression Denies: Alcohol Dependency, Schizoaffective Disorder, Substance Abuse Hematology: Reports: Anemia - Chronic Denies: Bleeding Tendencies Infectious Medical History: Denies: HIV Past Surgical History Past Surgical History: Reports: Cholecystectomy, Other - Liver transplant, partial colectomy with temporary colostomy and reversal Social History Information Source: Patient, Office Lives with: Family Smoking Status: Never Smoker Electronic Cigarette use?: No Frequency of Alcohol Use: None Hx Recreational Drug Use: No Drugs: None Hx Prescription Drug Abuse: No - Advance Directive Resuscitation Status: Full Code Family History Family History: Other - Interstitial cystitis, primary sclerosing cholangitis. denies: CAD, DM, Hypertension Parental Family History Reviewed: Yes Children Family History Reviewed: Yes Sibling(s) Family History Reviewed.: Yes Medication/Allergy Home Medications: Azathioprine [Imuran 50 mg Tablet] 100 mg PO QHS 08/21/19 Multivitamin [Daily Multiple Vitamin] 1 each PO DAILY 10/08/18 Tacrolimus [Prograf] 5 mg PO Q12 10/08/18 Ondansetron [Zofran Odt 4 mg Tablet] 4 mg PO Q4HP PRN 12/25/18 Allergies/Adverse Reactions: alcohol Allergy (Verified 12/25/18 17:20) HIVES/RASH, ITCHING morphine Allergy (Verified 12/25/18 17:20) HIVES/RASH, ITCHING Review of Systems Constitutional: PRESENT: anorexia, fatigue, weakness, weight loss. ABSENT: fever(s) Eyes: ABSENT: visual disturbances Ears: ABSENT: hearing changes Cardiovascular: ABSENT: chest pain, dyspnea on exertion, edema, orthropnea, palpitations Respiratory: ABSENT: cough, hemoptysis Gastrointestinal: PRESENT: as per HPI, bloating, diarrhea, nausea. ABSENT: constipation, vomiting Genitourinary: ABSENT: dysuria, hematuria Musculoskeletal: ABSENT: joint swelling Integumentary: ABSENT: rash, wounds Neurological: ABSENT: abnormal gait, abnormal speech, confusion, dizziness, focal weakness, syncope Psychiatric: PRESENT: as per HPI, anxiety, depression. ABSENT: homidical ideation, suicidal ideation Endocrine: ABSENT: cold intolerance, heat intolerance, polydipsia, polyuria Hematologic/Lymphatic: ABSENT: easy bleeding, easy bruising Physical Exam Vital Signs: Temp Pulse Resp BP Pulse Ox 98.3 F 84 14 97/50 L 99 12/26/18 03:20 12/26/18 03:20 12/26/18 03:20 12/26/18 03:20 12/26/18 03:20 Intake & Output 12/24/18 12/25/18 12/26/18 11:59 11:59 11:59 Intake Total 4000 Balance 4000 Weight 28 kg General appearance: PRESENT: cooperative, severe distress, thin, well-developed. ABSENT: disheveled, well-nourished Head exam: PRESENT: atraumatic, normocephalic Eye exam: PRESENT: conjunctiva pink, EOMI, PERRLA. ABSENT: scleral icterus Ear exam: PRESENT: normal external ear exam Mouth exam: PRESENT: dry mucosa, tongue midline Neck exam: ABSENT: carotid bruit, JVD, lymphadenopathy, thyromegaly Respiratory exam: PRESENT: clear to auscultation alex, tachypnea. ABSENT: rales, rhonchi, wheezes Cardiovascular exam: PRESENT: RRR. ABSENT: diastolic murmur, rubs, systolic murmur Pulses: PRESENT: normal dorsalis pedis pul Vascular exam: PRESENT: normal capillary refill GI/Abdominal exam: PRESENT: normal bowel sounds, soft. ABSENT: distended, guarding, mass, organolmegaly, rebound, tenderness Rectal exam: PRESENT: deferred Extremities exam: PRESENT: full ROM. ABSENT: calf tenderness, clubbing, pedal edema Neurological exam: PRESENT: alert, awake, oriented to person, oriented to place, oriented to time, oriented to situation, CN II-XII grossly intact. ABSENT: motor sensory deficit Psychiatric exam: PRESENT: anxious, depressed Skin exam: PRESENT: dry, intact, warm. ABSENT: cyanosis, rash Results Laboratory Results: 12/25/18 18:07 12/25/18 18:07 12/25/18 12/25/18 12/25/18 18:07 18:07 18:07 WBC 6.0 RBC 3.89 Hgb 9.4 L Hct 27.8 L MCV 72 L MCH 24.1 L MCHC 33.8 RDW 14.1 H Plt Count 500 H Seg Neutrophils % 59.1 Sodium 128.8 L Potassium 3.5 L Chloride 77 L Carbon Dioxide 32 H Anion Gap 20 H BUN 83 H Creatinine 5.69 H Est GFR ( Amer) 11 L Glucose 99 Calcium 10.1 Phosphorus Magnesium Total Bilirubin 0.7 AST 28 Alkaline Phosphatase 217 H Total Protein 8.0 Albumin 4.5 Lipase 123.4 Serum HCG, Qual NEGATIVE Urine Color Urine Appearance Urine pH Ur Specific [place] Urine Protein Urine Glucose (UA) Urine Ketones Urine Blood Urine RBC (Auto) 12/25/18 12/25/18 12/25/18 18:07 18:07 20:30 WBC RBC Hgb Hct MCV MCH MCHC RDW Plt Count Seg Neutrophils % Sodium Potassium Chloride Carbon Dioxide Anion Gap BUN Creatinine Est GFR ( Amer) Glucose Calcium Phosphorus 4.5 Magnesium 2.5 H Total Bilirubin AST Alkaline Phosphatase Total Protein Albumin Lipase 123.0 Serum HCG, Qual Urine Color YELLOW Urine Appearance CLOUDY Urine pH 6.0 Ur Specific [place] 1.012 Urine Protein 30 H Urine Glucose (UA) NEGATIVE Urine Ketones TRACE H Urine Blood NEGATIVE Urine RBC (Auto) 1 Assessment and Plan - Diagnosis (1) Acute kidney injury Is this a current diagnosis for this admission?: Yes Plan: Likely multifactorial secondary to anorexia and Prograf, IV fluid challenge, avoid nephrotoxic meds and doses follow-up UA and nephrology consult (2) Hyponatremia Is this a current diagnosis for this admission?: Yes Plan: Severe dehydration, normal saline trial, follow-up chemistry every 12 (3) Anorexia Is this a current diagnosis for this admission?: Yes Plan: Likely secondary to decompensated depression, trial Prozac (4) Depression Is this a current diagnosis for this admission?: Yes Plan: Profound depression leading to complete anorexia of fluid and solids. Patient is tearful will initiate amphetamine in addition to Prozac and mental health consult (5) History of liver transplant Is this a current diagnosis for this admission?: Yes Plan: Continue Imuran hold Prograf given renal failure - Time Time Spent with patient: 25-34 minutes - Inpatient Certification Medical Necessity: Need Close Monitoring Due to Risk of Patient Decompensation
[2018-12-26 05:46] LABS: ABSOLUTE LYMPHOCYTES (AUTO) 1.4 10^3/uL (0.5-4.7); ABSOLUTE MONOCYTES (AUTO) 0.7 10^3/uL (0.1-1.4); ABSOLUTE NEUT (AUTO) 2.3 10^3/uL (1.7-8.2); BASOPHILS % (AUTO) 0.3 % (0-2); HEMATOCRIT 20.6 % (36.0-47.0); LYMPHOCYTES % (AUTO) 31.6 % (13-45); MEAN CORPUSCULAR HEMOGLOBIN 24.6 pg (27.0-33.4); MEAN CORPUSCULAR HGB CONC 33.9 g/dL (32.0-36.0); MEAN CORPUSCULAR VOLUME 73 fl (80-97); MONOCYTES % (AUTO) 16.2 % (3-13); PLATELET COUNT 225 10^3/uL (150-450); RED BLOOD COUNT 2.84 10^6/uL (3.72-5.28); RED CELL DISTRIBUTION WIDTH 13.8 % (11.5-14.0); SEGMENTED NEUTROPHILS % (AUTO) 50.9 % (42-78); TOTAL CELLS COUNTED % (AUTO) 100 %; WHITE BLOOD COUNT 4.6 10^3/uL (4.0-10.5)
[2018-12-26] MEDS ORDERED: THIAMINE HCL 100 MG, FOLIC ACID 1 MG in NORMAL SALINE 250 ML IV ONE ×2 (05:55→09:00)
[2018-12-26 05:57] LABS: ANION GAP 12 (5-19); CALCIUM 8.2 mg/dL (8.4-10.2); CARBON DIOXIDE 29 mmol/L (22-30); CHLORIDE 92 mmol/L (98-107); GLUCOSE 81 mg/dL (75-110); POTASSIUM 3.1 mmol/L (3.6-5.0)
[2018-12-26 06:30] LABS: BLOOD UREA NITROGEN 64 mg/dL (7-20)
[2018-12-26] MEDS: METHYLPHENIDATE HCL 5 MG TABLET PO SCH ×2 (09:27→13:26)
[2018-12-26] MEDS ORDERED: FLUOXETINE HCL 20 MG CAPSULE PO SCH (10:00)
[2018-12-26] MEDS ORDERED: NORMAL SALINE 250 ML IV PRN ×2 (11:14)
[2018-12-26] MEDS: POTASSI CL 20 MEQ/50 ML RIDER 20 MEQ/50 ML RTUPB IV SCH ×2 (12:07→13:26)
[2018-12-26] MEDS ORDERED: CALCIUM CARBONATE 500 MG TAB.CHEW PO ONE (13:00)
[2018-12-26] MEDS ORDERED: PROMETHAZINE HCL INJ 25 MG/1 ML VIAL IV PRN (15:59)
[2018-12-26] MEDS ORDERED: LORAZEPAM INJ 2 MG/1 ML VIAL IV PRN (16:19)
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
[2018-12-26] MEDS: ONDANSETRON HCL INJ/PF 4 MG/2 ML SDV IV PRN (18:43)
[2018-12-26] MEDS: BUSPIRONE HCL 10 MG TABLET PO SCH (18:44)
[2018-12-26] MEDS: VENLAFAXINE HCL 37.5 MG CAP.SR.24H PO SCH (18:44)
--- NOTE | 2018-12-26 19:31 | RADIOLOGY REPORT (SQ) ---
EXAM DESCRIPTION: CT ABD/PELVIS ORAL ONLY COMPLETED DATE/TIME: 12/26/2018 6:19 pm REASON FOR STUDY: abd pain, chronic nausea/vomiting, early satiety COMPARISON: None. TECHNIQUE: CT scan of the abdomen and pelvis performed without intravenous contrast. Oral contrast was administered. Images reviewed with lung, soft tissue, and bone windows. Reconstructed coronal an d sagittal MPR images reviewed. All images stored on PACS. All CT scanners at this facility use dose modulation, iterative reconstruction, and/or weight based d osing when appropriate to reduce radiation dose to as low as reasonably achievable (ALARA). [facility]: Dose Right [facility]: CareDose [facility]: Dose Right [facility]: Teradose 4D [facility]: Sarbari RADIATION DOSE: CT Rad equipment meets quality standard of care and radiation dose reduction techniq ues were employed. CTDIvol: 4.8 mGy. DLP: 246 mGy-cm.mGy. LIMITATIONS: Paucity of intra-abdominal fat. Lack of IV contrast.c FINDINGS: LOWER CHEST: No significant findings. No nodules or infiltrates. NON-CONTRASTED LIVER, SPLEEN, ADRENALS: The liver is prominent. The spleen is normal. No adrenal ma ss is appreciated. PANCREAS: No masses. No peripancreatic inflammatory changes. GALLBLADDER: Not identified. RIGHT KIDNEY AND URETER: No suspicious masses. Assessment limited by lack of IV contrast. No signif icant calcifications. No hydronephrosis or hydroureter. LEFT KIDNEY AND URETER: No suspicious masses. Assessment limited by lack of IV contrast. No signifi cant calcifications. No hydronephrosis or hydroureter. AORTA AND RETROPERITONEUM: No aneurysm. No retroperitoneal masses or adenopathy. BOWEL AND PERITONEAL CAVITY: Minimal fluid around the liver. Free fluid in the pelvis. Radiopaque s uture in the pelvis. No bowel mass is appreciated. APPENDIX: Not identified. PELVIS, BLADDER, AND ABDOMINAL WALL:Free fluid in the pelvis. Urinary bladder is normal. No pelvic mass is seen. BONES: No significant findings. OTHER: No other significant finding. IMPRESSION: There is a small amount of free fluid around the liver and a free fluid in the pelvis. No other significant or acute findings are appreciated. COMMENT: Quality ID # [id number]: Final reports with documentation of one or more dose reduction techniques (e.g., Automated exposure control, adjustment of the mA and/or kV according to patient size, use of iterative reconstruction technique) TECHNICAL DOCUMENTATION: JOB ID: [id number] [employer]- All Rights Reserved Reading location - IP/workstation name: [email or web address]
--- NOTE | 2018-12-26 19:33 | PDOC PROGRESS REPORT ---
Subjective Progress Note for:: 12/26/18 Subjective:: The patient is a 28-year-old female with a past medical history of colitis status post colectomy with Liver transplant on Prograf and Imuran, GERD, ulcerative colitis, and depression who was admitted 12/25/2018 for acute kidney injury, associated electrolyte derangements. The patient was seen on morning rounds. She was found resting in bed comfortably on room air. She was tearful during her conversation; describing her past hospitalizations, chronic GI discomfort, food aversion, and poor healthcare utilization due to healthcare related anxiety. The patient denies the possibility of anorexia or habitual food aversion other than when she is ill or significantly depressed. She does admit to severe depression that has gradually worsened over the last 3 months. She denies fever, chills, chest pain, palpitations, dyspnea; does admit to generalized abdominal discomfort, nausea, vomiting, and irregular/uncomfortable bowel movements. Reason For Visit: ARF, HYPONATREMIA Physical Exam Vital Signs: Temp Pulse Resp BP Pulse Ox 98.2 F 117 H 16 98/56 L 94 12/26/18 16:03 12/26/18 16:03 12/26/18 16:03 12/26/18 16:03 12/26/18 16:03 Intake & Output 12/25/18 12/26/18 12/27/18 06:59 06:59 06:59 Intake Total 5000 508 Balance 5000 508 Weight 28 kg 36.5 kg General appearance: PRESENT: cooperative, mild distress, thin - Underweight, well-developed Head exam: PRESENT: atraumatic, normocephalic Eye exam: PRESENT: conjunctiva pink, EOMI, PERRLA. ABSENT: scleral icterus Ear exam: PRESENT: normal external ear exam Mouth exam: PRESENT: moist, tongue midline Neck exam: ABSENT: carotid bruit, JVD, lymphadenopathy, thyromegaly Respiratory exam: PRESENT: clear to auscultation alex, symmetrical, unlabored. ABSENT: rales, rhonchi, wheezes Cardiovascular exam: PRESENT: RRR, +S1, +S2, tachycardia. ABSENT: diastolic murmur, rubs, systolic murmur Vascular exam: PRESENT: normal capillary refill GI/Abdominal exam: PRESENT: normal bowel sounds, soft. ABSENT: distended, guarding, mass, organolmegaly, rebound, tenderness Rectal exam: PRESENT: deferred Extremities exam: PRESENT: full ROM. ABSENT: calf tenderness, clubbing, pedal edema Neurological exam: PRESENT: alert, awake, oriented to person, oriented to place, oriented to time, oriented to situation, CN II-XII grossly intact. ABSENT: motor sensory deficit Psychiatric exam: PRESENT: anxious, appropriate affect, depressed. ABSENT: homicidal ideation, suicidal ideation Skin exam: PRESENT: dry, intact, warm. ABSENT: cyanosis, rash Results Laboratory Results: 12/26/18 05:23 12/26/18 05:23 12/25/18 12/25/18 12/25/18 18:07 18:07 20:30 WBC RBC Hgb Hct MCV MCH MCHC RDW Plt Count Seg Neutrophils % Sodium Potassium Chloride Carbon Dioxide Anion Gap BUN Creatinine Est GFR ( Amer) Glucose Calcium Phosphorus 4.5 Magnesium 2.5 H Prealbumin Lipase 123.0 TSH Urine Color YELLOW Urine Appearance CLOUDY Urine pH 6.0 Ur Specific [place] 1.012 Urine Protein 30 H Urine Glucose (UA) NEGATIVE Urine Ketones TRACE H Urine Blood NEGATIVE Urine RBC (Auto) 1 Blood Type Antibody Screen 12/26/18 12/26/18 12/26/18 05:23 05:23 05:23 WBC 4.6 RBC 2.84 L Hgb 7.0 L D Hct 20.6 L MCV 73 L MCH 24.6 L MCHC 33.9 RDW 13.8 Plt Count 225 Seg Neutrophils % 50.9 Sodium 132.8 L Potassium 3.1 L Chloride 92 L Carbon Dioxide 29 Anion Gap 12 BUN 64 H Creatinine 3.86 H Est GFR ( Amer) 17 L Glucose 81 Calcium 8.2 L Phosphorus Magnesium Prealbumin Lipase TSH 1.84 Urine Color Urine Appearance Urine pH Ur Specific [place] Urine Protein Urine Glucose (UA) Urine Ketones Urine Blood Urine RBC (Auto) Blood Type Antibody Screen 12/26/18 12/26/18 13:04 15:53 WBC RBC Hgb Hct MCV MCH MCHC RDW Plt Count Seg Neutrophils % Sodium Potassium Chloride Carbon Dioxide Anion Gap BUN Creatinine Est GFR ( Amer) Glucose Calcium Phosphorus Magnesium Prealbumin 9.7 L Lipase TSH Urine Color Urine Appearance Urine pH Ur Specific [place] Urine Protein Urine Glucose (UA) Urine Ketones Urine Blood Urine RBC (Auto) Blood Type A POSITIVE Antibody Screen NEGATIVE Assessment and Plan - Diagnosis (1) Acute kidney injury Is this a current diagnosis for this admission?: Yes Plan: Likely multifactorial secondary to anorexia and Prograf, Creatinine is improved from 5.69 to 3.86. Continue IV fluids. Renally dose Imuran and Prograf. Avoid nephrotoxic medications and renally dose when appropriate. Nephrology consulted. Daily chemistries. (2) Chronic nausea Is this a current diagnosis for this admission?: Yes Plan: Patient endorses generalized/vague abdominal discomfort, chronic nausea, with infrequent emesis. She did have nausea and vomiting today. CT of the abdomen pelvis with oral contrast pending. Antiemetics as needed. (3) Anorexia Is this a current diagnosis for this admission?: Yes Plan: BMI 13; 8 kg weight loss over the last 2 months. Likely secondary to decompensated depression Medications per mental health services. Registered dietitian is consulted; discharge 24-hour calorie count. Consider appetite stimulant. Did discuss with [facility] (inpatient/outpatient anorexia treatment center in [place]; although patient's food aversion may be related more to pain/health than mental health disorder; center would be able to provide assistance w/ regard to food anxiety. Can recontact if patient is interested following resolution of her acute kidney injury). (4) Depression Qualifiers: Depression Type: major depressive disorder Psychotic features: without psychotic features Is this a current diagnosis for this admission?: Yes Plan: Mental health services consulted; medications per their recommendation. Have cleared from IVC status. Low suspicion for anorexic/food eating disorder. Supportive care. (5) Hyponatremia Is this a current diagnosis for this admission?: Yes Plan: Improved Continue IV fluids. Continue serial chemistries. (6) History of liver transplant Is this a current diagnosis for this admission?: Yes Plan: Renally dosed Imuran (50% total) Renally dosed Prograf (0.1mg/kg/day; decreased daily dose from 10 mg to 3 mg) Monitor LFTs - Time Time Spent with patient: 35 or more minutes Medications reviewed and adjusted accordingly: Yes Anticipated discharge: Home Within: within 72 hours
--- NOTE | 2018-12-26 20:15 | PDOC CONSULTATION ---
Consultation Consult Date: 12/26/18 Provider Consulted: NATAN ZAMORA Consult reason:: I was asked to see the patient due to acute kidney injury. History of Present Illness Admission Date/PCP: 12/25/18 20:48 TIERRA HERNANDEZ DO History of Present Illness: OLIVIER ORTIZ is a 28 year old female with history of ulcerative colitis status post total colectomy in 2004, liver transplant in July 2015 on immunosuppressants including Prograf and Imuran who was admitted yesterday due to worsening nausea, diarrhea and depression. Patient states that because of her total colectomy she usually have some diarrhea and nausea however for the last 1-1/2 weeks the symptoms is getting worse and she is aware that she goes into an episode of dehydration when that happens. She has some abdominal discom fort and worsening weakness so she decided to go to the emergency room. She denies any fever no chills. When she presented she had a BUN of 83, creatinine of 5.69 EGFR from 9, sodium of 128.8 and potassium of 3.5. Review of records revealed that on October 10, 2018 she had a BUN of 23, creatinine of 1.19 with EGFR 55. She admits that she has had at least couple of episodes of acute kidney injury secondary to dehydration the last one being 3 months ago. She also relates it to Prograf. She noted diminished volume of urine for weeks. She also states that her urine seems to be dark yellow. She denies any NSAIDs use recently. She denies any history of hepatitis. Patient also came in with denies any suicidal no homicidal ideation. She has never been on any antidepressant medications. Upon presentation the patient was started on IV fluid hydration. She is also being given antidepressant. Today her labs showed a BUN of 64, creatinine of 3.86 with a EGFR 14. Sodium of 132.8 and potassium 3.1. Her hemoglobin decreased from 9.4-7.0. There is no obvious active bleeding currently. Patient is going to be transfused 2 units of packed RBC today. Past Medical History Renal/ Medical History: Reports: Chronic Kidney Disease Stage III GI Medical History: Reports: Gastroesophageal Reflux Disease, Ulcerative Colitis , Other - Primary sclerosing cholangitis status post liver transplant Psychiatric Medical History: Reports: Depression Hematology Medical History: Reports Anemia Past Surgical History Past Surgical History: Reports: Cholecystectomy, Other - Liver transplant, total colectomy with temporary colostomy and reversal Social History Information Source: Patient Occupation: Currently not working. Lives with: Spouse/Significant other Smoking Status: Never Smoker Electronic Cigarette use?: No Frequency of Alcohol Use: None Hx Recreational Drug Use: No Drugs: None Hx Prescription Drug Abuse: No - Advance Directive Resuscitation Status: Full Code Family History Family History: Other - Interstitial cystitis on her mother Parental Family History Reviewed: Yes Children Family History Reviewed: NA Sibling(s) Family History Reviewed.: Yes Medication/Allergy Home Medications: Azathioprine [Imuran 50 mg Tablet] 100 mg PO QHS 10/08/18 Multivitamin [Daily Multiple Vitamin] 1 each PO DAILY 10/08/18 Tacrolimus [Prograf] 5 mg PO Q12 10/08/18 Ondansetron [Zofran Odt 4 mg Tablet] 4 mg PO Q4HP PRN 12/25/18 Allergies/Adverse Reactions: alcohol Allergy (Verified 12/25/18 17:20) HIVES/RASH, ITCHING morphine Allergy (Verified 12/25/18 17:20) HIVES/RASH, ITCHING Review of Systems All systems: reviewed and no additional remarkable complaints except as stated Review of Systems: Constitutional: ABSENT: chills, fatigue, fever(s), headache(s); admits poor appetite Eyes: ABSENT: visual disturbances Ears: ABSENT: hearing changes Cardiovascular: ABSENT: chest pain, dyspnea on exertion, edema, orthropnea, palpitations Respiratory: ABSENT: cough, dyspnea, hemoptysis Gastrointestinal: ABSENT: constipation, hematemesis, hematochezia; admits diarrhea, abdominal discomfort, nausea, and vomiting Genitourinary: ABSENT: dysuria, hematuria; admits decreased urine output Musculoskeletal: ABSENT: joint swelling Integumentary: ABSENT: rash, wounds Neurological: ABSENT: abnormal gait, abnormal speech, confusion, dizziness, focal weakness, numbness, syncope Psychiatric: ABSENT: anxiety; admits depression Endocrine: ABSENT: cold intolerance, heat intolerance, polydipsia, polyuria Hematologic/Lymphatic: ABSENT: easy bleeding, easy bruising, lymphadenopathy Physical Exam Vital Signs: Temp Pulse Resp BP Pulse Ox 98.2 F 117 H 16 98/56 L 94 12/26/18 16:03 12/26/18 16:03 12/26/18 16:03 12/26/18 16:03 12/26/18 16:03 Intake & Output 12/25/18 12/26/18 12/27/18 06:59 06:59 06:59 Intake Total 5000 483 Balance 5000 483 Weight 28 kg 36.5 kg Exam: General appearance: No acute distress, cooperative, small frame, very thin, and fragile looking Head exam: PRESENT: atraumatic, normocephalic Eye exam: PRESENT: Conjunctiva pale, EOMI, PERRLA. ABSENT: conjunctival injection, scleral icterus Mouth exam: PRESENT: moist, neck supple, tongue midline Neck exam: PRESENT: full ROM. ABSENT: carotid bruit, JVD, lymphadenopathy, thyromegaly Respiratory exam: PRESENT: clear to auscultation bilaterally. ABSENT: rales, rhonchi, stridor, wheezes Cardiovascular exam: PRESENT: RRR, +S1, +S2. Slightly tachycardic ABSENT: systolic murmur Pulses: PRESENT: normal radial pulses, normal dorsalis pedis pulses GI/Abdominal exam: PRESENT: normal bowel sounds, soft. Abdominal scars from previous surgery ABSENT: guarding, mass, tenderness Rectal exam: Deferred Extremities exam: PRESENT: full ROM. ABSENT: calf tenderness, pedal edema Musculoskeletal: PRESENT: full ROM. ABSENT: deformity Neurological exam: PRESENT: alert, Awake, Oriented to person, Oriented to place, Oriented to time, reflexes normal, CN II-XII grossly intact. ABSENT: motor sensory deficit Psychiatric exam: PRESENT: appropriate affect, normal mood. ABSENT: homicidal ideation, suicidal ideation Skin exam: PRESENT: intact, dry, warm. ABSENT: rash Results Laboratory Results: 12/26/18 05:23 12/26/18 05:23 12/25/18 12/25/18 12/25/18 18:07 18:07 18:07 WBC 6.0 RBC 3.89 Hgb 9.4 L Hct 27.8 L MCV 72 L MCH 24.1 L MCHC 33.8 RDW 14.1 H Plt Count 500 H Seg Neutrophils % 59.1 Sodium 128.8 L Potassium 3.5 L Chloride 77 L Carbon Dioxide 32 H Anion Gap 20 H BUN 83 H Creatinine 5.69 H Est GFR ( Amer) 11 L Glucose 99 Calcium 10.1 Phosphorus Magnesium Total Bilirubin 0.7 AST 28 Alkaline Phosphatase 217 H Total Protein 8.0 Albumin 4.5 Prealbumin Lipase 123.4 TSH Serum HCG, Qual NEGATIVE Urine Color Urine Appearance Urine pH Ur Specific [place] Urine Protein Urine Glucose (UA) Urine Ketones Urine Blood Urine RBC (Auto) Blood Type Antibody Screen 12/25/18 12/25/18 12/25/18 18:07 18:07 20:30 WBC RBC Hgb Hct MCV MCH MCHC RDW Plt Count Seg Neutrophils % Sodium Potassium Chloride Carbon Dioxide Anion Gap BUN Creatinine Est GFR ( Amer) Glucose Calcium Phosphorus 4.5 Magnesium 2.5 H Total Bilirubin AST Alkaline Phosphatase Total Protein Albumin Prealbumin Lipase 123.0 TSH Serum HCG, Qual Urine Color YELLOW Urine Appearance CLOUDY Urine pH 6.0 Ur Specific [place] 1.012 Urine Protein 30 H Urine Glucose (UA) NEGATIVE Urine Ketones TRACE H Urine Blood NEGATIVE Urine RBC (Auto) 1 Blood Type Antibody Screen 12/26/18 12/26/18 12/26/18 05:23 05:23 05:23 WBC 4.6 RBC 2.84 L Hgb 7.0 L D Hct 20.6 L MCV 73 L MCH 24.6 L MCHC 33.9 RDW 13.8 Plt Count 225 Seg Neutrophils % 50.9 Sodium 132.8 L Potassium 3.1 L Chloride 92 L Carbon Dioxide 29 Anion Gap 12 BUN 64 H Creatinine 3.86 H Est GFR ( Amer) 17 L Glucose 81 Calcium 8.2 L Phosphorus Magnesium Total Bilirubin AST Alkaline Phosphatase Total Protein Albumin Prealbumin Lipase TSH 1.84 Serum HCG, Qual Urine Color Urine Appearance Urine pH Ur Specific [place] Urine Protein Urine Glucose (UA) Urine Ketones Urine Blood Urine RBC (Auto) Blood Type Antibody Screen 12/26/18 12/26/18 13:04 15:53 WBC RBC Hgb Hct MCV MCH MCHC RDW Plt Count Seg Neutrophils % Sodium Potassium Chloride Carbon Dioxide Anion Gap BUN Creatinine Est GFR ( Amer) Glucose Calcium Phosphorus Magnesium Total Bilirubin AST Alkaline Phosphatase Total Protein Albumin Prealbumin 9.7 L Lipase TSH Serum HCG, Qual Urine Color Urine Appearance Urine pH Ur Specific [place] Urine Protein Urine Glucose (UA) Urine Ketones Urine Blood Urine RBC (Auto) Blood Type A POSITIVE Antibody Screen NEGATIVE Assessment & Plan - Diagnosis (1) Acute kidney injury superimposed on chronic kidney disease Is this a current diagnosis for this admission?: Yes Plan: The acute worsening of kidney function is most likely secondary to prerenal azotemia due to severe dehydration due to her GI issues. Due to worsening kidney function her Prograf level could have increased which could contribute further to worsening kidney function. Review of records indicate possible underlying chronic kidney disease which could be a result of long-term use of Prograf as well as multiple insults of episode of acute kidney injury in the past. Patient is currently nonoliguric and is responding very well to IV fluid hydration with improvement of kidney function. There is no indication for any renal replacement therapy at this time. Avoid nephrotoxic medications. Agree with decreasing the dose of her anti-rejection medications including Imuran, 50% of regular dose and the Prograf with the lowest possible dose,current dose of 0.1 mg/kg daily. Doses may be increases her kidney function improves. With good response to IV fluid hydration, ice expect continued improvement of her kidney function in the next 24 to 48 hours back to her baseline. (2) Chronic diarrhea Is this a current diagnosis for this admission?: Yes Plan: This is due to total colectomy in a patient with underlying ulcerative colitis. Continue supportive treatment. (3) Chronic nausea Is this a current diagnosis for this admission?: Yes (4) Anorexia Is this a current diagnosis for this admission?: Yes (5) Chronic anemia Is this a current diagnosis for this admission?: Yes Plan: This is likely related to her chronic illness and undernutrition exacerbated by IV fluid hydration. Patient is to receive 2 units of packed RBC as ordered by the hospitalist service. (6) Depression Qualifiers: Depression Type: major depressive disorder Psychotic features: without psychotic features Is this a current diagnosis for this admission?: Yes Plan: Defer to hospitalist service. (7) Hyponatremia Is this a current diagnosis for this admission?: Yes Plan: This is most likely secondary to volume depletion and poor oral intake. (8) Hypokalemia Is this a current diagnosis for this admission?: Yes Plan: This is mostly secondary to IV fluid hydration while here in the hospital. Replace potassium as necessary. (9) History of liver transplant Is this a current diagnosis for this admission?: Yes Plan: Continue current reduced dose of her Imuran and Prograf. As the kidney function improves may increase dose to the regular dose. - Notes Notes: Thank you very much for this consultation. - Time Time Spent: 50 to 70 Minutes
[2018-12-26] MEDS ORDERED: TACROLIMUS 5 MG PO SCH (22:00)
[2018-12-26] MEDS ORDERED: AZATHIOPRINE 50 MG TABLET PO SCH (22:00)
[2018-12-26] MEDS: TACROLIMUS ANHYDROUS 0.5 MG CAPSULE PO SCH (22:26)
[2018-12-26] MEDS: AZATHIOPRINE 50 MG TABLET PO SCH (22:27)
[2018-12-26] MEDS: HYDROMORPHONE HCL INJ/PF 2 MG/ML AMPULE IV PRN ×2 (22:33)
[2018-12-27] MEDS: ONDANSETRON HCL INJ/PF 4 MG/2 ML SDV IV PRN ×2 (00:49→09:49)
[2018-12-27] MEDS: NORMAL SALINE 1000 ML 1,000 ML IV PRN ×2 (01:58→13:08)
[2018-12-27] MEDS ORDERED: GABAPENTIN 100 MG CAPSULE PO ONE (03:00)
[2018-12-27] MEDS: HEPARIN SOD (PORCINE) 5,000 UNIT/ML 1 ML VIAL SUBCUT SCH ×4 (05:41→21:30)
[2018-12-27 07:30] LABS: HEMATOCRIT 29.8 % (36.0-47.0); MEAN CORPUSCULAR HEMOGLOBIN 27.2 pg (27.0-33.4); MEAN CORPUSCULAR HGB CONC 34.3 g/dL (32.0-36.0); PLATELET COUNT 206 10^3/uL (150-450); RED BLOOD COUNT 3.75 10^6/uL (3.72-5.28); RED CELL DISTRIBUTION WIDTH 17.1 % (11.5-14.0); WHITE BLOOD COUNT 3.6 10^3/uL (4.0-10.5)
[2018-12-27 07:31] LABS: HEMOGLOBIN 10.2 g/dL (12.0-15.5)
[2018-12-27 07:32] LABS: MEAN CORPUSCULAR VOLUME 79 fl (80-97)
[2018-12-27 07:52] LABS: ALBUMIN 2.7 g/dL (3.5-5.0); ALKALINE PHOSPHATASE 104 U/L (38-126); ANION GAP 11 (5-19); ASPARTATE AMINO TRANSFERASE 17 U/L (14-36); BILIRUBIN,DIRECT 0.2 mg/dL (0.0-0.4); BILIRUBIN,TOTAL 0.7 mg/dL (0.2-1.3); BLOOD UREA NITROGEN 31 mg/dL (7-20); CALCIUM 8.2 mg/dL (8.4-10.2); CARBON DIOXIDE 24 mmol/L (22-30); CHLORIDE 103 mmol/L (98-107); GLUCOSE 74 mg/dL (75-110); POTASSIUM 3.3 mmol/L (3.6-5.0); TOTAL PROTEIN 5.3 g/dL (6.3-8.2)
[2018-12-27] MEDS: POTASSI CL 20 MEQ/50 ML RIDER 20 MEQ/50 ML RTUPB IV SCH ×2 (09:47→11:30)
[2018-12-27] MEDS: TACROLIMUS ANHYDROUS 0.5 MG CAPSULE PO SCH ×2 (09:48→21:25)
[2018-12-27] MEDS: VENLAFAXINE HCL 37.5 MG CAP.SR.24H PO SCH (09:48)
[2018-12-27] MEDS: MULTIVITAMIN TABLET PO SCH (09:48)
[2018-12-27] MEDS: BUSPIRONE HCL 10 MG TABLET PO SCH ×2 (09:48→17:06)
--- NOTE | 2018-12-27 12:41 | PDOC PROGRESS REPORT ---
Subjective Progress Note for:: 12/27/18 Subjective:: The patient is a 28-year-old female with a past medical history of colitis status post colectomy with Liver transplant on Prograf and Imuran, GERD, ulcerative colitis, and depression who was admitted 12/25/2018 for acute kidney injury, associated electrolyte derangements. The patient was seen on morning rounds. She was found resting in bed comfortably on room air. She reports continued nausea and emesis. She states she has not been able to eat r/t nausea. Discussed improvements in labs, plan to use a standing scale today so that she will know her "hydrated/wet" weight (patient has received ~8L of fluids). She is also agreeable to trial of appetite stimulant as she reports her primary barrier to eating is poor appetite and chronic nausea. She denies fever, chills, chest pain, palpitations, dyspnea, abdominal discomfort. Does continue to have nausea, vomiting, and irregular/uncomfortable bowel movements. Primary complaint today is heartburn. No concerns per nursing. Reason For Visit: ARF, HYPONATREMIA Physical Exam Vital Signs: Temp Pulse Resp BP Pulse Ox 97.4 F 88 18 100/59 L 97 12/27/18 12:16 12/27/18 12:16 12/27/18 12:16 12/27/18 12:16 12/27/18 12:16 Intake & Output 12/26/18 12/27/18 12/28/18 06:59 06:59 06:59 Intake Total 5000 3376.2 43 Balance 5000 3376.2 43 Weight 28 kg 28.6 kg General appearance: PRESENT: no acute distress, cooperative, thin - unerweight, well-developed Head exam: PRESENT: atraumatic, normocephalic Eye exam: PRESENT: conjunctiva pink, EOMI, PERRLA. ABSENT: scleral icterus Ear exam: PRESENT: normal external ear exam Mouth exam: PRESENT: moist, tongue midline Respiratory exam: PRESENT: clear to auscultation alex, symmetrical, unlabored. ABSENT: rales, rhonchi, wheezes Cardiovascular exam: PRESENT: RRR, +S1, +S2. ABSENT: diastolic murmur, rubs, systolic murmur Vascular exam: PRESENT: normal capillary refill GI/Abdominal exam: PRESENT: hypoactive bowel sounds, soft. ABSENT: distended, guarding, mass, organolmegaly, rebound, tenderness Rectal exam: PRESENT: deferred Extremities exam: PRESENT: full ROM. ABSENT: calf tenderness, clubbing, pedal edema Musculoskeletal exam: PRESENT: ambulatory Neurological exam: PRESENT: alert, awake, oriented to person, oriented to place, oriented to time, oriented to situation, CN II-XII grossly intact. ABSENT: motor sensory deficit Psychiatric exam: PRESENT: appropriate affect, depressed. ABSENT: homicidal ideation, suicidal ideation Skin exam: PRESENT: dry, intact, warm. ABSENT: cyanosis, rash Results Laboratory Results: 12/27/18 07:15 12/27/18 07:15 12/26/18 12/26/18 12/26/18 05:23 13:04 15:53 WBC RBC Hgb Hct MCV MCH MCHC RDW Plt Count Sodium Potassium Chloride Carbon Dioxide Anion Gap BUN Creatinine Est GFR ( Amer) Glucose Calcium Phosphorus Magnesium Total Bilirubin AST Alkaline Phosphatase Total Protein Albumin Prealbumin 9.7 L TSH 1.84 Blood Type A POSITIVE Antibody Screen NEGATIVE 12/27/18 12/27/18 07:15 07:15 WBC 3.6 L RBC 3.75 Hgb 10.2 L D Hct 29.8 L MCV 79 L D MCH 27.2 MCHC 34.3 RDW 17.1 H Plt Count 206 Sodium 137.8 Potassium 3.3 L Chloride 103 Carbon Dioxide 24 Anion Gap 11 BUN 31 H Creatinine 1.68 H Est GFR ( Amer) 45 L Glucose 74 L Calcium 8.2 L Phosphorus 3.0 Magnesium 2.2 Total Bilirubin 0.7 AST 17 Alkaline Phosphatase 104 Total Protein 5.3 L Albumin 2.7 L Prealbumin TSH Blood Type Antibody Screen Impressions: Abdomen/Pelvis CT 12/26/18 00:00 IMPRESSION: There is a small amount of free fluid around the liver and a free fluid in the pelvis. No other significant or acute findings are appreciated. Assessment and Plan - Diagnosis (1) Acute kidney injury Is this a current diagnosis for this admission?: Yes Plan: Likely multifactorial secondary to anorexia and Prograf, Creatinine is improved from 5.69 -> 3.86 1.68 Continue IV fluids; have decreased rate. Renally dose Imuran and Prograf. Avoid nephrotoxic medications and renally dose when appropriate. Nephrology consulted. Daily chemistries. (2) Chronic nausea Is this a current diagnosis for this admission?: Yes Plan: Patient endorses generalized/vague abdominal discomfort, chronic nausea, with infrequent emesis. She did have nausea and vomiting today. CT of the abdomen pelvis with oral contrast benign. Antiemetics as needed. Will trial marinol. (3) Anorexia Is this a current diagnosis for this admission?: Yes Plan: BMI 13; 8 kg weight loss over the last 2 months. Will obtain standing scale weight today to confirm true weight when adequately hydrated. Likely secondary to decompensated depression and chronic nausea/abdominal discomfort. Medications per mental health services Registered dietitian is consulted; 24-hour calorie count. Consider appetite stimulant. Did discuss with [facility] (inpatient/outpatient anorexia treatment center in [place]; although patient's food aversion may be related more to pain/health than mental health disorder; center would be able to provide assistance w/ regard to food anxiety. Can recontact if patient is interested following resolution of her acute kidney injury). (4) Depression Qualifiers: Depression Type: major depressive disorder Psychotic features: without psychotic features Is this a current diagnosis for this admission?: Yes Plan: Improved mood today; patient appreciative of assistance. Mental health services consulted; medications per their recommendation. Have cleared from IVC status. Low suspicion for anorexic/food eating disorder. Supportive care. (5) Hyponatremia Is this a current diagnosis for this admission?: Yes Plan: Resolved. Continue IV fluids. Continue serial chemistries. (6) History of liver transplant Is this a current diagnosis for this admission?: Yes Plan: Renally dosed Imuran (50% total) Renally dosed Prograf (0.1mg/kg/day; decreased daily dose from 10 mg to 3 mg) Monitor LFTs (7) GERD (gastroesophageal reflux disease) Is this a current diagnosis for this admission?: Yes Plan: IV Protonix while admitted. Consider Prevacid dissolvable tabs at discharge as she can remain complaint w/ these even while nauseated. - Time Time Spent with patient: 35 or more minutes Medications reviewed and adjusted accordingly: Yes Anticipated discharge: Home Within: within 48 hours
[2018-12-27] MEDS: PANTOPRAZOLE SODIUM 40 MG VIAL IV SCH (13:08)
[2018-12-27] MEDS: DRONABINOL 2.5 MG CAPSULE PO SCH (17:06)
[2018-12-27] MEDS: AZATHIOPRINE 50 MG TABLET PO SCH (21:26)
[2018-12-28] MEDS: NORMAL SALINE 1000 ML 1,000 ML IV PRN (03:24)
[2018-12-28 05:00] LABS: HEMATOCRIT 29.7 % (36.0-47.0); HEMOGLOBIN 10.2 g/dL (12.0-15.5); MEAN CORPUSCULAR HEMOGLOBIN 27.2 pg (27.0-33.4); MEAN CORPUSCULAR HGB CONC 34.5 g/dL (32.0-36.0); MEAN CORPUSCULAR VOLUME 79 fl (80-97); PLATELET COUNT 235 10^3/uL (150-450); RED BLOOD COUNT 3.76 10^6/uL (3.72-5.28); RED CELL DISTRIBUTION WIDTH 17.7 % (11.5-14.0); RETICULOCYTE COUNT (AUTO) 1.05 % (0.66-2.85); WHITE BLOOD COUNT 3.8 10^3/uL (4.0-10.5)
[2018-12-28 05:17] LABS: ALBUMIN 2.5 g/dL (3.5-5.0); ALKALINE PHOSPHATASE 98 U/L (38-126); ANION GAP 5 (5-19); ASPARTATE AMINO TRANSFERASE 16 U/L (14-36); BILIRUBIN,DIRECT 0.1 mg/dL (0.0-0.4); BILIRUBIN,TOTAL 0.2 mg/dL (0.2-1.3); BLOOD UREA NITROGEN 18 mg/dL (7-20); CALCIUM 8.1 mg/dL (8.4-10.2); CARBON DIOXIDE 27 mmol/L (22-30); CHLORIDE 108 mmol/L (98-107); GLUCOSE 105 mg/dL (75-110); IRON(TIBC) 19.8 ug/dL (37-170); PHOSPHORUS 2.2 mg/dL (2.5-4.5); POTASSIUM 3.7 mmol/L (3.6-5.0); TOTAL PROTEIN 5.2 g/dL (6.3-8.2)
[2018-12-28] MEDS: HEPARIN SOD (PORCINE) 5,000 UNIT/ML 1 ML VIAL SUBCUT SCH ×3 (07:10→22:12)
[2018-12-28] MEDS ORDERED: NORMAL SALINE 1000 ML 1,000 ML IV PRN (07:53)
[2018-12-28] MEDS: PANTOPRAZOLE SODIUM 40 MG VIAL IV SCH (09:57)
[2018-12-28] MEDS: PHOSPHORUS #1 250 MG TABLET PO SCH ×4 (09:57→22:17)
[2018-12-28] MEDS: FERROUS SULFATE 325 MG TABLET PO SCH ×2 (09:57→17:28)
[2018-12-28] MEDS: BUSPIRONE HCL 10 MG TABLET PO SCH ×2 (09:58→17:28)
[2018-12-28] MEDS: TACROLIMUS ANHYDROUS 0.5 MG CAPSULE PO SCH ×2 (09:58→22:17)
[2018-12-28] MEDS: VENLAFAXINE HCL 37.5 MG CAP.SR.24H PO SCH (09:58)
[2018-12-28] MEDS: MULTIVITAMIN TABLET PO SCH (09:58)
[2018-12-28] MEDS: DRONABINOL 2.5 MG CAPSULE PO SCH ×2 (11:43→15:40)
--- NOTE | 2018-12-28 12:00 | PDOC PROGRESS REPORT ---
Subjective Progress Note for:: 12/28/18 Subjective:: The patient is a 28-year-old female with a past medical history of colitis status post colectomy with Liver transplant on Prograf and Imuran, GERD, ulcerative colitis, and depression who was admitted 12/25/2018 for acute kidney injury, associated electrolyte derangements. The patient was seen on morning rounds. She was found resting in bed comfortably on room air; sleeping but woke easily when I said her name. She reports she is feeling well today; slight nausea but reports she was able to eat some cheese last night. She appears in good spirits today. Discussed continued improvements in labs, plan to use a standing scale today so that she will know her "hydrated/wet" weight (patient has received ~10L of fluids). Discussed decreasing IV fluids today so that we can start demonstrating her ability to remain hydrated through oral intake. Lots of encouragement today. She denies fever, chills, chest pain, palpitations, dyspnea, abdominal discomfort, and vomiting. Does continue to have nausea, though reportedly improved. No concerns per nursing. Reason For Visit: ARF, HYPONATREMIA Physical Exam Vital Signs: Temp Pulse Resp BP Pulse Ox 98.5 F 65 16 95/61 L 99 12/28/18 10:56 12/28/18 10:56 12/28/18 10:56 12/28/18 10:56 12/28/18 10:56 Intake & Output 12/27/18 12/28/18 12/29/18 06:59 06:59 06:59 Intake Total 3376.2 2081 488 Balance 3376.2 2081 488 Weight 28.6 kg 68.2 kg 42.4 kg General appearance: PRESENT: no acute distress, cooperative, thin - underweight, well-developed, well-nourished Head exam: PRESENT: atraumatic, normocephalic Eye exam: PRESENT: conjunctiva pink, EOMI, PERRLA. ABSENT: scleral icterus Ear exam: PRESENT: normal external ear exam Mouth exam: PRESENT: moist, tongue midline Respiratory exam: PRESENT: clear to auscultation alex, symmetrical, unlabored. ABSENT: rales, rhonchi, wheezes Cardiovascular exam: PRESENT: RRR, +S1, +S2. ABSENT: diastolic murmur, rubs, systolic murmur Vascular exam: PRESENT: normal capillary refill GI/Abdominal exam: PRESENT: normal bowel sounds, soft. ABSENT: distended, guarding, mass, organolmegaly, rebound, tenderness Rectal exam: PRESENT: deferred Extremities exam: PRESENT: full ROM. ABSENT: calf tenderness, clubbing, pedal edema Musculoskeletal exam: PRESENT: ambulatory Neurological exam: PRESENT: alert, awake, oriented to person, oriented to place, oriented to time, oriented to situation, CN II-XII grossly intact. ABSENT: motor sensory deficit Psychiatric exam: PRESENT: appropriate affect, normal mood - improved mood today. ABSENT: homicidal ideation, suicidal ideation Skin exam: PRESENT: dry, intact, warm. ABSENT: cyanosis, rash Results Laboratory Results: 12/28/18 04:44 12/28/18 04:44 12/28/18 12/28/18 04:44 04:44 WBC 3.8 L RBC 3.76 Hgb 10.2 L Hct 29.7 L MCV 79 L MCH 27.2 MCHC 34.5 RDW 17.7 H Plt Count 235 Retic Count (auto) 1.05 Sodium 139.6 Potassium 3.7 Chloride 108 H Carbon Dioxide 27 Anion Gap 5 BUN 18 Creatinine 1.26 H Est GFR ( Amer) > 60 Glucose 105 Calcium 8.1 L Phosphorus 2.2 L Magnesium 1.9 Iron 19.8 L TIBC 275 % Saturation 7 Ferritin 14.30 Total Bilirubin 0.2 AST 16 Alkaline Phosphatase 98 Total Protein 5.2 L Albumin 2.5 L Vitamin B12 > 1000.0 H Folate 14.40 Impressions: Abdomen/Pelvis CT 12/26/18 00:00 IMPRESSION: There is a small amount of free fluid around the liver and a free fluid in the pelvis. No other significant or acute findings are appreciated. Assessment and Plan - Diagnosis (1) Acute kidney injury Is this a current diagnosis for this admission?: Yes Plan: Likely multifactorial secondary to anorexia and Prograf Creatinine is improved from 5.69 -> 3.86-> 1.68-> 1.26 Continue IV fluids; have decreased rate to KVO (~720ml/24 hr) p.o. fluid encouraged; need to demonstrate patient's ability to drink adequate fluids. RD recommends 1095 ml/daily. Renally dose Imuran and Prograf; consider resuming nml dosing tomorrow. Avoid nephrotoxic medications and renally dose when appropriate. Nephrology consulted. Strict I&Os Daily chemistries. (2) Chronic nausea Is this a current diagnosis for this admission?: Yes Plan: Improved; no emesis and decreased nausea today. Patient endorses hx of generalized/vague abdominal discomfort, chronic nausea, with infrequent emesis. CT of the abdomen pelvis with oral contrast benign. Antiemetics as needed. Will trial marinol; patient reports she is tolerating well. (3) Anorexia Is this a current diagnosis for this admission?: Yes Plan: Standing scale weights: 41.2 kg (12/27/18), 42.4 kg () are valid/true weights after correcting for dehydration. BMI 15.1 8 kg weight loss over the last 2 months; likely related to severe dehydration, though with continued protein-calorie malnutrition Continue medications per mental health services Registered dietitian is consulted. Greatly appreciate their assistance. Patient requires 1278+Kcal daily. Intake of approximately 115 kcal over last 24 hours. Continue 24 hour calorie counts. Continue marinol for both appetite stimulant and chronic nausea. Did discuss with [facility] (inpatient/outpatient anorexia treatment center in [place]; although patient's food aversion may be related more to pain/health than mental health disorder; center would be able to provide assistance w/ regard to food anxiety. Can recontact if patient is interested following resolution of her acute kidney injury). (4) Depression Qualifiers: Depression Type: major depressive disorder Psychotic features: without psychotic features Is this a current diagnosis for this admission?: Yes Plan: Improved mood today. Mental health services consulted; medications per their recommendation. Have cleared from IVC status. Low suspicion for anorexic/food eating disorder. Supportive care. (5) Hyponatremia Is this a current diagnosis for this admission?: Yes Plan: Resolved. Continue IV fluids. Continue serial chemistries. (6) History of liver transplant Is this a current diagnosis for this admission?: Yes Plan: Renally dosed Imuran (50% total) Renally dosed Prograf (0.1mg/kg/day; decreased daily dose from 10 mg to 3 mg) Monitor LFTs (7) GERD (gastroesophageal reflux disease) Is this a current diagnosis for this admission?: Yes Plan: IV Protonix while admitted. Consider Prevacid dissolvable tabs at discharge as she can remain complaint w/ these even while nauseated. - Plan Summary Summary: Downgrade to med-floor status today. - Time Time Spent with patient: 35 or more minutes Medications reviewed and adjusted accordingly: Yes Anticipated discharge: Home Within: within 48 hours - pending adequate oral intake.
[2018-12-28 21:52] VITALS: BP 104/65
[2018-12-28] MEDS: AZATHIOPRINE 50 MG TABLET PO SCH (22:17)
[2018-12-29] MEDS: HEPARIN SOD (PORCINE) 5,000 UNIT/ML 1 ML VIAL SUBCUT SCH ×2 (05:27→13:14)
[2018-12-29 05:46] LABS: ALBUMIN 2.5 g/dL (3.5-5.0); ALKALINE PHOSPHATASE 89 U/L (38-126); ANION GAP 5 (5-19); ASPARTATE AMINO TRANSFERASE 16 U/L (14-36); BILIRUBIN,DIRECT 0.1 mg/dL (0.0-0.4); BILIRUBIN,TOTAL 0.2 mg/dL (0.2-1.3); BLOOD UREA NITROGEN 12 mg/dL (7-20); CALCIUM 8.3 mg/dL (8.4-10.2); CARBON DIOXIDE 25 mmol/L (22-30); CHLORIDE 108 mmol/L (98-107); GLUCOSE 86 mg/dL (75-110); PHOSPHORUS 2.2 mg/dL (2.5-4.5); POTASSIUM 3.9 mmol/L (3.6-5.0); TOTAL PROTEIN 5.2 g/dL (6.3-8.2)
[2018-12-29] MEDS: MULTIVITAMIN TABLET PO SCH (09:34)
[2018-12-29] MEDS: PANTOPRAZOLE SODIUM 40 MG VIAL IV SCH (09:34)
[2018-12-29] MEDS: VENLAFAXINE HCL 37.5 MG CAP.SR.24H PO SCH (09:34)
[2018-12-29] MEDS: PHOSPHORUS #1 250 MG TABLET PO SCH ×3 (09:34→16:25)
[2018-12-29] MEDS: FERROUS SULFATE 325 MG TABLET PO SCH ×2 (09:34→17:05)
[2018-12-29] MEDS: BUSPIRONE HCL 10 MG TABLET PO SCH ×2 (09:34→17:04)
[2018-12-29] MEDS: TACROLIMUS ANHYDROUS 0.5 MG CAPSULE PO SCH (09:35)
[2018-12-29] MEDS: DRONABINOL 2.5 MG CAPSULE PO SCH ×2 (11:53→16:26)
[2018-12-29] MEDS ORDERED: LIDOCAINE 5% (700 MG) TRANSDERMAL ADH..PATCH TP SCH (12:00)
[2018-12-29] MEDS ORDERED: PHARMACY COMMUNICATION ORDER MC SCH (22:00)
[2018-12-29] MEDS ORDERED: TACROLIMUS ANHYDROUS 1 MG CAPSULE PO SCH (22:00)
[2018-12-29] MEDS ORDERED: AZATHIOPRINE 50 MG TABLET PO SCH (22:00)
[2018-12-30] MEDS ORDERED: PANTOPRAZOLE SODIUM 40 MG TABLET.DR PO SCH (10:00)
--- NOTE | 2018-12-30 21:47 | PDOC DISCHARGE SUMMARY ---
Impression - Admit/DC Date/PCP Admission Date/Primary Care Provider: 12/25/18 20:48 TIERRA HERNANDEZ DO Discharge Date: 12/29/18 - Discharge Diagnosis (1) Acute kidney injury Is this a current diagnosis for this admission?: Yes (2) Chronic nausea Is this a current diagnosis for this admission?: Yes (3) Anorexia Is this a current diagnosis for this admission?: Yes (4) Depression Is this a current diagnosis for this admission?: Yes (5) Hyponatremia Is this a current diagnosis for this admission?: Yes (6) History of liver transplant Is this a current diagnosis for this admission?: Yes (7) GERD (gastroesophageal reflux disease) Is this a current diagnosis for this admission?: Yes - Assessment Summary: Downgrade to med-floor status today. - Additional Information Resuscitation Status: Full Code Discharge Diet: As Tolerated, Regular Discharge Activity: Activity As Tolerated, Balance Activity w/Rest Referrals: TIERRA HERNANDEZ DO [Primary Care Provider] - 01/12/19 10:15 am Prescriptions: Buspirone HCl [Buspar 10 mg Tablet] 10 mg PO QAM #30 tablet Buspirone HCl [Buspar 10 mg Tablet] 5 mg PO QPM #30 tablet Venlafaxine HCl ER [Effexor Xr 37.5 mg Cap.sr] 37.5 mg PO DAILY #30 cap.sr.24h Ferrous Sulfate [Feosol 325 mg Tablet] 325 mg PO BIDPCBS #60 tablet Lidocaine [Lidoderm 5% (700 mg) Transdermal Patch] 2 patch TP DAILY #30 adh..patch Dronabinol [Marinol 2.5 mg Capsule] 2.5 mg PO ACLUNCH #30 capsule Dronabinol [Marinol 2.5 mg Capsule] 2.5 mg PO ACSUPPER #30 capsule Lansoprazole [Prevacid 30 Mg Odt Tablet] 30 mg PO ACBRKFST #30 tab.rap. Ondansetron [Zofran Odt 4 mg Tablet] 4 mg PO Q4HP PRN #20 PRN Reason: For Nausea/Vomiting Home Medications: Azathioprine [Imuran 50 mg Tablet] 100 mg PO QHS 10/08/18 Multivitamin [Daily Multiple Vitamin] 1 each PO DAILY 10/08/18 Tacrolimus [Prograf] 5 mg PO Q12 10/08/18 Buspirone HCl [Buspar 10 mg Tablet] 5 mg PO QPM #30 tablet 12/29/18 Buspirone HCl [Buspar 10 mg Tablet] 10 mg PO QAM #30 tablet 12/29/18 Dronabinol [Marinol 2.5 mg Capsule] 2.5 mg PO ACLUNCH #30 capsule 12/29/18 Dronabinol [Marinol 2.5 mg Capsule] 2.5 mg PO ACSUPPER #30 capsule 12/29/18 Ferrous Sulfate [Feosol 325 mg Tablet] 325 mg PO BIDPCBS #60 tablet 12/29/18 Lansoprazole [Prevacid 30 Mg Odt Tablet] 30 mg PO ACBRKFST #30 tab.rap.dr 12/29/18 Lidocaine [Lidoderm 5% (700 mg) Transdermal Patch] 2 patch TP DAILY #30 adh..patch 12/29/18 Magnesium Hydroxide [Milk of Magnesia 30 ml Udcup] 30 ml PO HSP PRN udc 12/29/18 Ondansetron [Zofran Odt 4 mg Tablet] 4 mg PO Q4HP PRN #20 12/29/18 Venlafaxine HCl ER [Effexor Xr 37.5 mg Cap.sr] 37.5 mg PO DAILY #30 cap.sr.24h 12/29/18 History of Present Illiness History of Present Illness: Per H&P by Dr. Fernando: OLIVIER ORTIZ is a 28 year old female with a complicated past medical history of ulcerative colitis status post colectomy, liver transplant on Prograf and Imuran presents with 2 weeks of severe depression, anorexia developing nausea she presents to the emergency room is found to have a BMI of only 10 and acute renal failure with a BUN of 83 and a creatinine of 5.6. Patient complains of severe depression following a moved to the area. She denies alcohol or drugs, suicidal or homicidal ideation. She denies previous history of eating disorder or medication for depression. Despite her poor appetite she is continue to take her medications. Hospital Course Hospital Course: The patient was admitted to [facility] on continuous cardiac telemetry. She was provided aggressive IV fluid resuscitation and 2 units PRBC. Anemia panel revealed iron deficiency anemia. Nephrotoxic medications were held, including her antirejection drugs x24 hours. Once her creatinine began trending down, her Imuran and Prograf were resumed at renal dosing. The patient met with mental health services who provided medication recommendations for major depression and anxiety; they had low concern for an eating disorder from a mental health perspective. The patient reported chronic nausea, vague abdominal discomfort, and early satiety; fortunately abdominal and pelvic CT were benign. She was provided antiemetics as needed and met with the registered dietitian to discuss her poor appetite and nutritional needs. The patient was agreeable to starting an appetite stimulant; Marinol was chosen for the added benefit of antinausea efficacy. The patient tolerated Marinol quite well, with resolution of her nausea, and increased appetite. Patient's renal function returned to normal and her LFTs remained within normal limits throughout. I did speak with her transplant specialist, Ms. Cook, LIAM prior to the patient's discharge. She recommended resuming her full dose of Imuran and Prograf as the patient's creatinine/BUN were now at baseline. Patient was provided encouragement regarding her oral intake and provided specific goals of maintaining weight of 42 kg or greater through daily consumption of 1200 priya and 1 L of fluids. IV fluids were weaned while 24-hour calorie counts were continued. On day of discharge, the patient met her goal calorie intake without abdominal discomfort or nausea. She is now requesting to be discharged home. The patient is discharged home in stable condition. She is instructed to follow-up with her PCP within 1 week. She is advised to follow-up with her liver transplant specialist as directed. She is provided prescriptions for Prevacid, Zofran, and Marinol for management of her chronic nausea. She was provided prescriptions for Effexor and BuSpar as recommended by the mental health team. She is advised to take medications as directed. She is encouraged to return to the emergency department as needed for concerning symptoms. Physical Exam Vital Signs: Temp Pulse Resp BP Pulse Ox 98.6 F 78 16 104/65 94 12/29/18 17:58 12/29/18 17:58 12/29/18 17:58 12/29/18 17:58 12/29/18 17:58 Intake & Output 12/29/18 12/30/18 12/31/18 06:59 06:59 06:59 Intake Total 1168 237 Output Total 700 Balance 468 237 Weight 42.4 kg 42.4 kg General appearance: PRESENT: no acute distress, cooperative, thin, well- developed Head exam: PRESENT: atraumatic, normocephalic Eye exam: PRESENT: conjunctiva pink, EOMI, PERRLA. ABSENT: scleral icterus Ear exam: PRESENT: normal external ear exam Mouth exam: PRESENT: moist, tongue midline Respiratory exam: PRESENT: clear to auscultation alex, symmetrical, unlabored. ABSENT: rales, rhonchi, wheezes Cardiovascular exam: PRESENT: RRR, +S1, +S2. ABSENT: diastolic murmur, rubs, systolic murmur Pulses: PRESENT: normal dorsalis pedis pul Vascular exam: PRESENT: normal capillary refill GI/Abdominal exam: PRESENT: normal bowel sounds, soft. ABSENT: distended, guarding, mass, organolmegaly, rebound, tenderness Rectal exam: PRESENT: deferred Extremities exam: PRESENT: full ROM. ABSENT: calf tenderness, clubbing, pedal edema Musculoskeletal exam: PRESENT: ambulatory Neurological exam: PRESENT: alert, awake, oriented to person, oriented to place, oriented to time, oriented to situation, CN II-XII grossly intact. ABSENT: motor sensory deficit Psychiatric exam: PRESENT: appropriate affect, normal mood. ABSENT: homicidal ideation, suicidal ideation Skin exam: PRESENT: dry, intact, warm. ABSENT: cyanosis, rash Results Laboratory Results: WBC 3.8 10^3/uL (4.0-10.5) L 12/28/18 04:44 RBC 3.76 10^6/uL (3.72-5.28) 12/28/18 04:44 Hgb 10.2 g/dL (12.0-15.5) L 12/28/18 04:44 Hct 29.7 % (36.0-47.0) L 12/28/18 04:44 MCV 79 fl (80-97) L 12/28/18 04:44 MCH 27.2 pg (27.0-33.4) 12/28/18 04:44 MCHC 34.5 g/dL (32.0-36.0) 12/28/18 04:44 RDW 17.7 % (11.5-14.0) H 12/28/18 04:44 Plt Count 235 10^3/uL (150-450) 12/28/18 04:44 Lymph % (Auto) 31.6 % (13-45) 12/26/18 05:23 [place] % (Auto) 16.2 % (3-13) H 12/26/18 05:23 Eos % (Auto) 1.0 % (0-6) 12/26/18 05:23 Baso % (Auto) 0.3 % (0-2) 12/26/18 05:23 Reticulocyte # 0.040 10^6/uL (0.028-0.122) 12/28/18 04:44 Absolute Neuts (auto) 2.3 10^3/uL (1.7-8.2) 12/26/18 05:23 Absolute Lymphs (auto) 1.4 10^3/uL (0.5-4.7) 12/26/18 05:23 Absolute Monos (auto) 0.7 10^3/uL (0.1-1.4) 12/26/18 05:23 Absolute Eos (auto) 0.0 10^3/uL (0.0-0.6) 12/26/18 05:23 Absolute Basos (auto) 0.0 10^3/uL (0.0-0.2) 12/26/18 05:23 Seg Neutrophils % 50.9 % (42-78) 12/26/18 05:23 Retic Count (auto) 1.05 % (0.66-2.85) 12/28/18 04:44 Sodium 137.9 mmol/L (137-145) 12/29/18 05:04 Potassium 3.9 mmol/L (3.6-5.0) 12/29/18 05:04 Chloride 108 mmol/L (98-107) H 12/29/18 05:04 Carbon Dioxide 25 mmol/L (22-30) 12/29/18 05:04 Anion Gap 5 (5-19) 12/29/18 05:04 BUN 12 mg/dL (7-20) 12/29/18 05:04 Creatinine 0.96 mg/dL (0.52-1.25) 12/29/18 05:04 Est GFR ( Amer) > 60 (>60) 12/29/18 05:04 Est GFR (MDRD) Non-Af > 60 (>60) 12/29/18 05:04 Glucose 86 mg/dL (75-110) 12/29/18 05:04 Calcium 8.3 mg/dL (8.4-10.2) L 12/29/18 05:04 Phosphorus 2.2 mg/dL (2.5-4.5) L 12/29/18 05:04 Magnesium 1.7 mg/dL (1.6-2.3) 12/29/18 05:04 Iron 19.8 ug/dL (37-170) L 12/28/18 04:44 TIBC 275 ug/dL (250-450) 12/28/18 04:44 % Saturation 7 % 12/28/18 04:44 Ferritin 14.30 ng/mL (6.2-137.0) 12/28/18 04:44 Total Bilirubin 0.2 mg/dL (0.2-1.3) 12/29/18 05:04 Direct Bilirubin 0.1 mg/dL (0.0-0.4) 12/29/18 05:04 Neonat Total Bilirubin Not Reportable 12/29/18 05:04 Neonat Direct Bilirubin Not Reportable 12/29/18 05:04 Neonat Indirect Bili Not Reportable 12/29/18 05:04 AST 16 U/L (14-36) 12/29/18 05:04 ALT 9 U/L (<35) 12/29/18 05:04 Alkaline Phosphatase 89 U/L (38-126) 12/29/18 05:04 Total Protein 5.2 g/dL (6.3-8.2) L 12/29/18 05:04 Albumin 2.5 g/dL (3.5-5.0) L 12/29/18 05:04 Prealbumin 9.7 mg/dL (17.6-36.0) L 12/26/18 15:53 Lipase 123.0 U/L (23-300) 12/25/18 18:07 Lipase 123.4 U/L (23-300) 12/25/18 18:07 Vitamin B12 > 1000.0 pg/mL (239-931) H 12/28/18 04:44 Folate 14.40 ng/mL (>2.76) 12/28/18 04:44 TSH 1.84 uIU/mL (0.47-4.68) 12/26/18 05:23 Serum HCG, Qual NEGATIVE (NEGATIVE) 12/25/18 18:07 Urine Color YELLOW 12/25/18 20:30 Urine Appearance CLOUDY 12/25/18 20:30 Urine pH 6.0 (5.0-9.0) 12/25/18 20:30 Ur Specific [place] 1.012 12/25/18 20:30 Urine Protein 30 mg/dL (NEGATIVE) H 12/25/18 20:30 Urine Glucose (UA) NEGATIVE mg/dL (NEGATIVE) 12/25/18 20:30 Urine Ketones TRACE mg/dL (NEGATIVE) H 12/25/18 20:30 Urine Blood NEGATIVE (NEGATIVE) 12/25/18 20:30 Urine Nitrite (Reflex) NEGATIVE (NEGATIVE) 12/25/18 20:30 Urine Bilirubin NEGATIVE (NEGATIVE) 12/25/18 20:30 Urine Urobilinogen NEGATIVE mg/dL (<2.0) 12/25/18 20:30 Leukocyte Esterase Rfl NEGATIVE (NEGATIVE) 12/25/18 20:30 Urine RBC (Auto) 1 /HPF 12/25/18 20:30 U Hyaline Cast (Auto) 5 /LPF 12/25/18 20:30 Urine Bacteria (Auto) TRACE /HPF 12/25/18 20:30 Urine WBC (Reflex) 6 /HPF 12/25/18 20:30 Squamous Epi Cells Auto 18 /HPF 12/25/18 20:30 Urine Mucus (Auto) RARE /LPF 12/25/18 20:30 Urine Ascorbic Acid NEGATIVE (NEGATIVE) 12/25/18 20:30 Blood Type A POSITIVE 12/26/18 13:04 Antibody Screen NEGATIVE 12/26/18 13:04 Crossmatch See Detail 12/26/18 13:04 Impressions: Abdomen/Pelvis CT 12/26/18 00:00 IMPRESSION: There is a small amount of free fluid around the liver and a free fluid in the pelvis. No other significant or acute findings are appreciated. Plan Plan of Treatment: Patient is discharged to home with self care. She is advised to follow up with her primary care provider within 1 week. She is instructed to keep her follow up appointments with the liver transplant center as scheduled. Long discussion had regarding goal fluid and calorie intake. Discussed home management of nausea. Patient is instructed to take her medications as prescribed. She is encouraged to return to the emergency room as needed for concerning symptoms. Time Spent: Greater than 30 Minutes Stroke Is this a Stroke Patient?: No Acute Heart Failure - Is this a Heart Failure Patient?: No
== END 2018-12-29 18:48 | disposition home or self-care (01) | DRG 683 ==
LOC: ER 17:03 → EH 20:48 → 3S 22:30
PROVIDERS: ADMIT Internal Medicine; ATTEND Internal Medicine
PROC: 30233N1 Transfusion of Nonautologous Red Blood Cells into Peripheral Vein, Percutaneous Approach (ICD-10-PCS; principal; 2018-12-26)
DX: N17.9 Acute kidney failure, unspecified (principal); E87.1 Hypo-osmolality and hyponatremia; Z94.4 Liver transplant status; Z68.1 Body mass index [BMI] 19.9 or less, adult; E86.0 Dehydration; D64.9 Anemia, unspecified; E87.6 Hypokalemia; N18.3 Chronic kidney disease, stage 3 (moderate); K21.9 Gastro-esophageal reflux disease without esophagitis; R63.0 Anorexia; F32.9 Major depressive disorder, single episode, unspecified; R11.0 Nausea; Z90.49 Acquired absence of other specified parts of digestive tract
CPT/HCPCS: 36415; 36430; 74176; 80048; 80053; 81001; 82607; 82728; 82746; 83540; 83550; 83690; 83735; 84100; 84134; 84443; 84703; 85025; 85027; 85045; 86850; 86900; 86901; 86920; 93005; 93010; 96360; 99285; A9270-GY; C9113; J1170; J1644; J2060; J2405; J3411; J3480; J3490; J7030; J7050; J7500; J7507; P9016

== ENCOUNTER → 2019-01-13 | Outpatient (CLI) | payer OTHER ==
[2019-01-13 10:39] LABS: ABSOLUTE EOSINOPHILS # (AUTO) 0.1 10^3/uL (0.0-0.6); ABSOLUTE LYMPHOCYTES (AUTO) 1.7 10^3/uL (0.5-4.7); ABSOLUTE MONOCYTES (AUTO) 0.7 10^3/uL (0.1-1.4); ABSOLUTE NEUT (AUTO) 3.4 10^3/uL (1.7-8.2); BASOPHILS % (AUTO) 0.5 % (0-2); EOSINOPHILS % (AUTO) 1.6 % (0-6); HEMATOCRIT 37.3 % (36.0-47.0); HEMOGLOBIN 12.7 g/dL (12.0-15.5); LYMPHOCYTES % (AUTO) 28.9 % (13-45); MEAN CORPUSCULAR HEMOGLOBIN 26.8 pg (27.0-33.4); MEAN CORPUSCULAR VOLUME 79 fl (80-97); MONOCYTES % (AUTO) 12.3 % (3-13); PLATELET COUNT 439 10^3/uL (150-450); RED BLOOD COUNT 4.74 10^6/uL (3.72-5.28); RED CELL DISTRIBUTION WIDTH 20.3 % (11.5-14.0); SEGMENTED NEUTROPHILS % (AUTO) 56.7 % (42-78); TOTAL CELLS COUNTED % (AUTO) 100 %
[2019-01-13 10:50] LABS: INTERNATIONAL RATION (INR) 0.99; PROTHROMBIN TIME 13.1 SEC (11.4-15.4)
[2019-01-13 10:58] LABS: ALBUMIN 4.3 g/dL (3.5-5.0); ALKALINE PHOSPHATASE 231 U/L (38-126); ANION GAP 14 (5-19); ASPARTATE AMINO TRANSFERASE 32 U/L (14-36); BILIRUBIN,DIRECT 0.1 mg/dL (0.0-0.4); BILIRUBIN,TOTAL 0.3 mg/dL (0.2-1.3); BLOOD UREA NITROGEN 50 mg/dL (7-20); CALCIUM 9.8 mg/dL (8.4-10.2); CARBON DIOXIDE 26 mmol/L (22-30); CHLORIDE 96 mmol/L (98-107); GLUCOSE 99 mg/dL (75-110); POTASSIUM 3.6 mmol/L (3.6-5.0)
== END ==
LOC: OD 10:07
PROVIDERS: ATTEND Surgery
DX: Z94.4 Liver transplant status (principal); D68.9 Coagulation defect, unspecified
CPT/HCPCS: 36415; 80053; 80197; 82977; 83735; 85025; 85610